=== PATIENT | male | born 1970 | race Caucasian/White ===

== ENCOUNTER 2016-07-24 14:39 | Observation (INO) | payer OTHER ==
[~2016-07-24] VITALS: Ht 170.2 cm; Wt 68.9 kg
[~2016-07-24 14:39] MED LIST: ASP81CT PO; ASP81TEC PO; ATOR20TA66 PO; ATRV10T PO; BPR100T PO; BUSP15TA60 PO; BUSPIRONE PO; CLOP75TA PO; CYAN10006 PO; METO-272 PO; METO25TA2 PO; NITR0.4T12 SL
[2016-07-24 16:00] VITALS: BP 166/89
[2016-07-24] MEDS ORDERED: ACETAMINOPHEN 500 MG TAB (TYLENOL) PO PRN (16:30)
[2016-07-24] MEDS ORDERED: LORazepam INJ 2 MG/ML (ATIVAN) VIAL IVP PRN (16:30)
[2016-07-24] MEDS ORDERED: CATHETER FLUSH 10 ML SYR IV PRN (16:45)
[2016-07-24 16:57] LABS: PROTHROMBIN TIME PATIENT 13.3 SEC (12.2-14.7)
[2016-07-24 17:06] LABS: ALANINE AMINOTRANSFERASE 21 U/L (0-55); ALBUMIN 4.2 G/DL (3.2-4.5); ANION GAP 11 MMOL/L (5-14); ASPARTATE AMINO TRANSFERASE 19 U/L (5-34); BILIRUBIN,TOTAL 1.2 MG/DL (0.1-1.0); BLOOD UREA NITROGEN 12 MG/DL (7-18); BUN/CREATININE RATIO 12; CALCIUM 9.3 MG/DL (8.5-10.1); CARBON DIOXIDE 20 MMOL/L (21-32); CHLORIDE 105 MMOL/L (98-107); CREATININE SERUM 0.99 MG/DL (0.60-1.30); GFR ESTIMATED > 60; GLUCOSE 89 MG/DL (70-105); POTASSIUM 3.6 MMOL/L (3.6-5.0); SALICYLATE < 5.0 MG/DL (5.0-20.0); SODIUM 136 MMOL/L (135-145); TOTAL PROTEIN 7.2 G/DL (6.4-8.2)
[2016-07-24 17:07] LABS: BASOPHILS % (AUTO) 0 % (0-10); EOSINOPHILS # (AUTO) 0.2 10^3/uL (0.0-0.3); EOSINOPHILS % (AUTO) 2 % (0-10); LYMPHOCYTES # (AUTO) 1.8 X 10^3 (1.0-4.0); LYMPHOCYTES % (AUTO) 19 % (12-44); MEAN CORPUSCULAR HEMOGLOBIN 31 PG (25-34); MEAN CORPUSCULAR HGB CONC 35 G/DL (32-36); MEAN CORPUSCULAR VOLUME 87 FL (80-99); MEAN PLATELET VOLUME 10.2 FL (7.4-10.4); MONOCYTES # (AUTO) 0.9 X 10^3 (0.0-1.0); MONOCYTES % (AUTO) 9 % (0-12); NEUTROPHILS # (AUTO) 6.5 X 10^3 (1.8-7.8); NEUTROPHILS % (AUTO) 69 % (42-75); PLATELET COUNT 276 10^3/uL (130-400); RED CELL DISTRIBUTION WIDTH 12.7 % (10.0-14.5); WHITE BLOOD COUNT 9.4 10^3/uL (4.3-11.0)
[2016-07-24 17:08] LABS: ACETAMINOPHEN < 10 UG/ML (10-30); ALCOHOL < 10 MG/DL (<10)
[2016-07-24] MEDS: NS IV 1000 ML 1,000 ML IV SCH (17:22)
[2016-07-24] MEDS: NICOTINE 21 MG (NICODERM) PATCH TD SCH (18:29)
[2016-07-24] MEDS ORDERED: FLU TRIvalent (5 YOA+) 2016-17 (AFLURIA) 0.5 ML IM ONE (20:00)
[2016-07-24 20:11] VITALS: BP 134/91
[2016-07-25] MEDS: NS IV 1000 ML 1,000 ML IV SCH (00:30)
[2016-07-25 00:52] VITALS: BP 138/86
[2016-07-25 04:30] VITALS: BP 135/87
[2016-07-25 08:00] VITALS: BP 127/78
[2016-07-25] MEDS: NICOTINE PATCH REMOVAL TP SCH ×2 (09:02→11:35)
[2016-07-25] MEDS: NICOTINE 21 MG (NICODERM) PATCH TD SCH (09:02)
[2016-07-25 09:20] LABS: BILIRUBIN,URINE NEGATIVE (NEGATIVE); KETONES,URINE NEGATIVE (NEGATIVE); LEUKOCYTE ESTERASE ,URINE NEGATIVE (NEGATIVE); NITRITE,URINE NEGATIVE (NEGATIVE); PH,URINE 6 (5-9); PROTEIN,URINE NEGATIVE (NEGATIVE); UROBILINOGEN,URINE 4 MG/DL (NORMAL)
--- NOTE | 2016-07-25 10:53 | Discharge Instructions ---
Discharge [facility] Discharge Medications New, Converted or Re-Newed RX: Other (No new scripts) Continued Medications: Aspirin (Aspirin 81 Mg Chew Tab) 81 Mg Chew 81 MG PO DAILY Patient Instructions Goal/Follow Up Appt: You have an appointment today with outpatient treatment at 1pm We will make sure that you have a ride to get to this appointment from the hospital Patient Instructions: - It is very important that you go to outpatient treatment for the support you need to help with your addiction. - We are working on inpatient treatment but we are limited do to bed availablities and insurance Return to The Hospital For: Chest pain Shortness of breath Activity & Diet Discharge Diet: No Restrictions Activity as Tolerated: Yes Orders-Post D/C & Referrals Pneu Vac Indicated: Yes Copy Copies To 1: EUGENIA ESTRADA MD, HOLLY R MD Jul 25, 2016 10:53
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
== END 2016-07-25 10:49 | disposition home or self-care (01) ==
LOC: UNDOADMOB 15:11 → 4TH 15:11 → UNDODISOB 07-25 11:47
PROVIDERS: ADMIT Family Medicine; ATTEND Family Medicine
DX: F11.151 Opioid abuse with opioid-induced psychotic disorder with hallucinations (principal); F17.210 Nicotine dependence, cigarettes, uncomplicated
CPT/HCPCS: 36415; 80053; 80306; 80320; 80329; 81000; 85025; 85610; 99211; G0378

== ENCOUNTER 2016-11-13 14:15 | Emergency (ER) | payer SELFPAY ==
[~2016-11-13] VITALS: Ht 175.3 cm; Wt 79.4 kg
[2016-11-13 14:52] LABS: BASOPHILS # (AUTO) 0.1 10^3/uL (0.0-0.1); BASOPHILS % (AUTO) 1 % (0-10); EOSINOPHILS # (AUTO) 0.4 10^3/uL (0.0-0.3); EOSINOPHILS % (AUTO) 4 % (0-10); LYMPHOCYTES # (AUTO) 2.2 X 10^3 (1.0-4.0); LYMPHOCYTES % (AUTO) 24 % (12-44); MEAN CORPUSCULAR HEMOGLOBIN 31 PG (25-34); MEAN CORPUSCULAR HGB CONC 34 G/DL (32-36); MEAN CORPUSCULAR VOLUME 91 FL (80-99); MEAN PLATELET VOLUME 10.5 FL (7.4-10.4); MONOCYTES # (AUTO) 0.9 X 10^3 (0.0-1.0); MONOCYTES % (AUTO) 10 % (0-12); NEUTROPHILS # (AUTO) 5.6 X 10^3 (1.8-7.8); NEUTROPHILS % (AUTO) 61 % (42-75); PLATELET COUNT 235 10^3/uL (130-400); RED BLOOD COUNT 5.04 10^6/uL (4.35-5.85); RED CELL DISTRIBUTION WIDTH 13.8 % (10.0-14.5); WHITE BLOOD COUNT 9.1 10^3/uL (4.3-11.0)
[2016-11-13 15:09] LABS: ALANINE AMINOTRANSFERASE 10 U/L (0-55); ALBUMIN 3.9 GM/DL (3.2-4.5); ANION GAP 7 MMOL/L (5-14); ASPARTATE AMINO TRANSFERASE 15 U/L (5-34); BILIRUBIN,TOTAL 0.4 MG/DL (0.1-1.0); BLOOD UREA NITROGEN 7 MG/DL (7-18); BUN/CREATININE RATIO 7 (0-20); CALCIUM 9.2 MG/DL (8.5-10.1); CARBON DIOXIDE 25 MMOL/L (21-32); CHLORIDE 107 MMOL/L (98-107); CREATININE SERUM 0.95 MG/DL (0.60-1.30); GFR ESTIMATED > 60; GLUCOSE 119 MG/DL (70-105); HEMOLYSIS 10 (-100-29); ICTERUS 0.4 (-100-1.9); LIPEMIA 5 (-100-49); POTASSIUM 3.7 MMOL/L (3.6-5.0); SODIUM 139 MMOL/L (135-145); TOTAL PROTEIN 7.2 GM/DL (6.4-8.2)
--- NOTE | 2016-11-13 15:09 | Diagnostic Imaging Report ---
INDICATION: Chest pain. EXAM: Frontal chest obtained at 2:49 hours p.m. FINDINGS: The heart and mediastinal silhouette are normal in appearance. The lungs are clear. There is no pneumothorax or pleural fluid. IMPRESSION: Negative chest. Dictated by: Dictated on workstation # [id number]
[2016-11-13 15:10] LABS: ALCOHOL < 10 MG/DL (<10)
[2016-11-13 15:14] LABS: TROPONIN I < 0.30 NG/ML (<0.30)
--- NOTE | 2016-11-13 16:27 | ED Chest Pain ---
General Chief Complaint: Cardiac/General Problems Stated Complaint: BLOOD PANEL NEEDED POSS HEART ATTACK IN LAST WEEK Nursing Triage Note: c/o intermittant chest pain x 1 month. Denies chest pain currently. Hx of heart stent x 2012. Nursing Sepsis Screen: No Definite Risk Source: patient, family Exam Limitations: no limitations History of Present Illness Time seen by provider: 16:21 Initial Comments The patient is a 46-year-old white male who was sent out from [facility] after he revealed that he had been having chest pain for a month. He has a past history of coronary artery disease. An angiogram report from 2012 showed a 60 percent blockage. He is a heavy smoker and was advised that he must quit smoking at that point in time. He continues to smoke one to one and a half packs of cigarettes per day. He reports that this pain is present at rest and if anything it improves with exercise. He also has complaints of neck pain and left arm pain. This is been present for some time and the pain goes all the way to the fingers. There is also pain in a rather constant fashion along the medial border of the left scapula. Timing/Duration: other (at least one month) Severity/Quality: moderate Location: shoulder, back Radiation: arms (perhaps left arm) Prior CP/Workup: cardiac cath Associated Symptoms: back pain Allergies and Home Medications Allergies Coded Allergies: No Known Drug Allergies (Unverified , 05/28/12) Home Medications Aspirin 81 Mg Chew, 81 MG PO DAILY, (Reported) Review of Systems Constitutional: see HPI EENTM: No Symptoms Reported Respiratory: Cough, Shortness of Air Cardiovascular: See HPI, Chest Pain Gastrointestinal: No Symptoms Reported Genitourinary: No Symptoms Reported Musculoskeletal: no symptoms reported Skin: no symptoms reported Psychiatric/Neurological: No Symptoms Reported Endocrine: No Symptoms Reported Hematologic/Lymphatic: No Symptoms Reported Past [id number]-Pwldon-Xddtzr Hx Patient Social History Alcohol Use: Occasionally Uses Recreational Drug Use: Yes (Hx & Current drug use) Smoking Status: Current Everyday Smoker Type Used: Cigarettes Recent Foreign Travel: No Contact w/Someone Who Travel: No Recent Infectious Disease Expo: No Recent Hopitalizations: Yes Immunizations Up To Date Tetanus Booster (TDap): Unknown PED Vaccines UTD: No Surgeries HX Surgeries: Yes (JAW FX REPAIR) Surgeries: Cardiac, Coronary Stent Respiratory Hx Respiratory Disorders: No Cardiovascular Hx Cardiac Disorders: Yes (STENT X 1 ) Cardiac Disorders: Coronary Artery Disease, Heart Attack, Heart Murmur, High Cholesterol, Hypertension Neurological Hx Neurological Disorders: No Reproductive System Hx Reproductive Disorders: No Sexually Transmitted Disease: No HIV/AIDS: No Genitourinary Hx Genitourinary Disorders: Yes Genitourinary Disorders: Kidney Stones Gastrointestinal Hx Gastrointestinal Disorders: Yes (HX OF BLOOD IN STOOL) Musculoskeletal Hx Musculoskeletal Disorders: Yes Musculoskeletal Disorders: Arthritis, Chronic Back Pain Endocrine Hx Endocrine Disorders: No HEENT HX ENT Disorders: No Loss of Vision: Denies Hearing Impairment: Denies Cancer Hx Cancer: No Psychosocial Hx Psychiatric Problems: Yes Behavioral Health Disorders: Anxiety, Depression Integumentary HX Skin/Integumentary Disorder: No Blood Transfusions Hx Blood Disorders: No Physical Exam Vital Signs Vital Sign - Last 12Hours 11/13/16 14:20 Temp 97.5 Pulse 70 Resp 16 B/P (MAP) 143/104 O2 Delivery Room Air Capillary Refill : Less Than 3 Seconds General Appearance: Mild Distress HEENT: Normal ENT Inspection Neck: Full Range of Motion, Normal Inspection, Non Tender Respiratory: Decreased Breath Sounds (distant) Cardiovascular: Regular Rate, Rhythm, No Edema, No Gallop, No JVD, No Murmur, Normal Peripheral Pulses Gastrointestinal: Normal Bowel Sounds, No Organomegaly, No Pulsatile Mass, Non Tender Extremity: Normal Capillary Refill, Normal Inspection, Normal Range of Motion, Non Tender, No Calf Tenderness, No Pedal Edema Neurologic/Psychiatric: Alert, Oriented x3, No Motor/Sensory Deficits, Normal Mood/Affect Other comments Tenderness to palpation along the medial border of the left scapula which he states is constant. He also reports numbness and tingling in his left arm all the way to the fingertips Progress/Results/Core Measures Results/Orders Lab Results Laboratory Tests Test 11/13/16 14:35 Range/Units White Blood Count 9.1 4.3-11.0 10^3/uL Red Blood Count 5.04 4.35-5.85 10^6/uL Hemoglobin 15.6 13.3-17.7 G/DL Hematocrit 46 40-54 % Mean Corpuscular Volume 91 80-99 FL Mean Corpuscular Hemoglobin 31 25-34 PG Mean Corpuscular Hemoglobin Concent 34 32-36 G/DL Red Cell Distribution Width 13.8 10.0-14.5 % Platelet Count 235 130-400 10^3/uL Mean Platelet Volume 10.5 H 7.4-10.4 FL Neutrophils (%) (Auto) 61 42-75 % Lymphocytes (%) (Auto) 24 12-44 % Monocytes (%) (Auto) 10 0-12 % Eosinophils (%) (Auto) 4 0-10 % Basophils (%) (Auto) 1 0-10 % Neutrophils # (Auto) 5.6 1.8-7.8 X 10^3 Lymphocytes # (Auto) 2.2 1.0-4.0 X 10^3 Monocytes # (Auto) 0.9 0.0-1.0 X 10^3 Eosinophils # (Auto) 0.4 H 0.0-0.3 10^3/uL Basophils # (Auto) 0.1 0.0-0.1 10^3/uL Sodium Level 139 135-145 MMOL/L Potassium Level 3.7 3.6-5.0 MMOL/L Chloride Level 107 98-107 MMOL/L Carbon Dioxide Level 25 21-32 MMOL/L Anion Gap 7 5-14 MMOL/L Blood Urea Nitrogen 7 7-18 MG/DL Creatinine 0.95 0.60-1.30 MG/DL Estimat Glomerular Filtration Rate > 60 BUN/Creatinine Ratio 7 0-20 Glucose Level 119 H 70-105 MG/DL Calcium Level 9.2 8.5-10.1 MG/DL Total Bilirubin 0.4 0.1-1.0 MG/DL Aspartate Amino Transf (AST/SGOT) 15 5-34 U/L Alanine Aminotransferase (ALT/SGPT) 10 0-55 U/L Alkaline Phosphatase 129 40-136 U/L Troponin I < 0.30 <0.30 NG/ML Total Protein 7.2 6.4-8.2 GM/DL Albumin 3.9 3.2-4.5 GM/DL Serum Alcohol < 10 <10 MG/DL My Orders Orders - GERONIMO GIFFORD MD Cbc With Automated Diff (11/13/16 14:24) Comprehensive Metabolic Panel (11/13/16 14:24) Troponin I (11/13/16 14:24) Chest 1 View, Ap/Pa Only (11/13/16 14:24) Ekg Tracing (11/13/16 14:24) Alcohol (11/13/16 14:28) Drug Screen Stat (Urine) (11/13/16 14:28) Vital Signs/I&O Vital Sign - Last 12Hours 11/13/16 14:20 Temp 97.5 Pulse 70 Resp 16 B/P (MAP) 143/104 O2 Delivery Room Air Blood Pressure Mean: 117 Departure Impression Impression: Primary Impression: chest pain Additional Impression: left sided neuropathy/cervical disc disease Disposition: HOME, SELF-CARE Condition: Stable/Unchanged Departure-Patient Inst. Decision time for Depature: 16:30 Referrals: EUGENIA ESTRADA MD (PCP) Primary Care Physician [facility] (Family) Primary Care Physician Patient Instructions: Chest Pain (DC) Add. Discharge Instructions: All discharge instructions reviewed with patient and/or family. Voiced understanding. Stop smoking Make arrangements with Dr. Estrada for stress test and evaluation of your cervical vertebrae/discs GERONIMO GIFFORD MD Nov 13, 2016 16:27
[2016-11-13 16:45] VITALS: BP 138/90
--- OUTSIDE RECORDS SUMMARY | 2016-11-17 14:17 | XMS REPORT ---
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
--- OUTSIDE RECORDS SUMMARY | 2016-11-17 14:18 | XMS REPORT | Continuity of Care Document ---
Author Author [facility] Address Unknown Phone Unavailable Allergies Active Description Code Type Severity Reaction Onset Reported/Identified Relationship to Patient Clinical Status Yes No Known Drug Allergies [id number] Drug Allergy Unknown N/ A 05/28/2012 Yes Zoloft 100 mg tablet Drug Allergy N/A N/A 09/07/2013 Yes Wellbutrin 100 mg tablet Drug Allergy N/A N/A 12/29/2013 Medications Problems Date Dx Coded Attending Type Code Diagnosis Diagnosed By 05/29/2012 Ot 305.00 ALCOHOL ABUSE-UNSPEC 05/29/2012 Ot 305.1 TOBACCO USE DISORDER 05/29/2012 Ot 305.90 DRUG ABUSE NEC-UNSPEC 05/29/2012 Ot 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 05/29/2012 Ot 786.50 CHEST PAIN NOS 05/29/2012 Ot V17.49 FAMILY HISTORY OF OTHER CARDIOVASCULAR D 06/16/2012 FARZANEH YEAGER DO 300.00 ANXIETY UNSPEC 06/16/2012 FARZANEH YEAGER DO 780.99 ANHEDONIA 06/16/2012 NATTY SMITH APRN 300.00 ANXIETY UNSPEC 06/16/2012 NATTY SMITH APRN 780.99 ANHEDONIA 06/16/2012 300.00 ANXIETY UNSPEC 06/16/2012 780.99 ANHEDONIA 06/16/2012 FARZANEH YEAGER DO 300.00 ANXIETY UNSPEC 06/16/2012 FARZANEH YEAGER DO 780.99 ANHEDONIA 06/16/2012 SOPHIA RANDALL APRN 300.00 ANXIETY UNSPEC 06/16/2012 SOPHIA RANDALL APRN 780.99 ANHEDONIA 06/16/2012 EUGENIA ESTARDA MD 300.00 ANXIETY UNSPEC 06/16/2012 EUGENIA ESTRADA MD 780.99 ANHEDONIA 06/16/2012 EUGENAI ESTRADA MD 300.00 ANXIETY UNSPEC 06/16/2012 EUGENIA ESTRADA MD 780.99 ANHEDONIA 06/16/2012 EUGENIA ESTRADA MD 300.00 ANXIETY UNSPEC 06/16/2012 EUGENIA ESTRADA MD 780.99 ANHEDONIA 06/16/2012 TOM BROWN DDS 300.00 ANXIETY UNSPEC 06/16/2012 TOM BROWN DDS 780.99 ANHEDONIA 08/31/2012 NATTY SMITH APRN 719.41 PAIN IN JOINT INVOLVING SHOULDER REGION 08/31/2012 719.41 PAIN IN JOINT INVOLVING SHOULDER REGION 08/31/2012 FARZANEH YEAGER DO 719.41 PAIN IN JOINT INVOLVING SHOULDER REGION 08/31/2012 SOPHIA RANDALL APRN 719.41 PAIN IN JOINT INVOLVING SHOULDER REGION 08/31/2012 EUGENIA ESTRADA MD 719.41 PAIN IN JOINT INVOLVING SHOULDER REGION 08/31/2012 EUGENIA ESTRADA MD 719.41 PAIN IN JOINT INVOLVING SHOULDER REGION 08/31/2012 EUGENIA ESTRADA MD 719.41 PAIN IN JOINT INVOLVING SHOULDER REGION 08/31/2012 TOM BROWN DDS 719.41 PAIN IN JOINT INVOLVING SHOULDER REGION 12/28/2012 FARZANEH YEAGER DO K 786.50 CHEST PAIN 12/28/2012 SOPHIA RANDALL APRN S 786.50 CHEST PAIN 12/28/2012 EUGENIA ESTRADA MD 786.50 CHEST PAIN 12/28/2012 EUGENIA ESTRADA MD 786.50 CHEST PAIN 12/28/2012 EUGENIA ESTRADA MD 786.50 CHEST PAIN 12/28/2012 TOM BROWN DDS 786.50 CHEST PAIN 02/22/2013 ANISA DANIEL MD, FACC FACP CCDS Ot 272.4 HYPERLIPIDEMIA NEC/NOS 02/22/2013 ANISA DANIEL MD, FACC FACP CCDS Ot 305.00 ALCOHOL ABUSE-UNSPEC 02/22/2013 ANISA DANIEL MD, FACC FACP CCDS Ot 305.1 TOBACCO USE DISORDER 02/22/2013 ANISA DANIEL MD, FACC FACP CCDS Ot 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 02/22/2013 ANISA DANIEL MD, FACC FACP CCDS Ot 414.4 CORONARY ATHEROSCLEROSIS DUE TO CALCIFIE 02/22/2013 ANISA DANIEL MD, FACC FACP CCDS Ot 786.59 CHEST PAIN NEC 02/22/2013 ANISA DANIEL MD, FACC FACP CCDS Ot V15.81 HX OF PAST NONCOMPLIANCE 02/22/2013 MARÍA OLEA [facility], ANISA FACP CCDS Ot V45.82 PERCUTANEOUS TRANSLUM CORON ANGIOPLASTY 02/22/2013 MARÍA OLEA [facility], ANISA FACP CCDS Ot V58.63 LONG-TERM(CURRENT)USE OF ANTIPLATELET/AN 02/22/2013 MARÍA OLEA [facility], [facility] Ot V58.69 OTH MED,LT,CURRENT USE 03/18/2013 YEAGER DO FARZANEH K 272.4 HYPERLIPIDEMIA 03/18/2013 YEAGER DO FARZANEH K 401.1 HYPERTENSION, BENIGN ESSENTIAL 03/18/2013 YEAGER DO, FARZANEH K 414.00 CORONARY ATHEROSCLEROSIS OF UNSPECIFIED TYPE OF VESSEL LITTLE TRAVERSE OR GRAFT 03/18/2013 SOPHIA RANDALL APRN S 272.4 HYPERLIPIDEMIA 03/18/2013 SOPHIA RANDALL APRN S 401.1 HYPERTENSION, BENIGN ESSENTIAL 03/18/2013 SOPHIA RANDALL APRN S 414.00 CORONARY ATHEROSCLEROSIS OF UNSPECIFIED TYPE OF VESSEL LITTLE TRAVERSE OR GRAFT 03/18/2013 EUGENIA ESTRADA MD N 272.4 HYPERLIPIDEMIA 03/18/2013 EUGENIA ESTRADA MD N 401.1 HYPERTENSION, BENIGN ESSENTIAL 03/18/2013 EUGENIA ESTRADA MD N 414.00 CORONARY ATHEROSCLEROSIS OF UNSPECIFIED TYPE OF VESSEL LITTLE TRAVERSE OR GRAFT 03/18/2013 EUGENIA ESTRADA MD N 272.4 HYPERLIPIDEMIA 03/18/2013 EUGENIA ESTRADA MD N 401.1 HYPERTENSION, BENIGN ESSENTIAL 03/18/2013 EUGENIA ESTRADA MD N 414.00 CORONARY ATHEROSCLEROSIS OF UNSPECIFIED TYPE OF VESSEL LITTLE TRAVERSE OR GRAFT 03/18/2013 EUGENIA ESTRADA MD N 272.4 HYPERLIPIDEMIA 03/18/2013 EUGENIA ESTRADA MD N 401.1 HYPERTENSION, BENIGN ESSENTIAL 03/18/2013 EUGENIA ESTRADA MD N 414.00 CORONARY ATHEROSCLEROSIS OF UNSPECIFIED TYPE OF VESSEL LITTLE TRAVERSE OR GRAFT 03/18/2013 WHITE DDS, TOM J 272.4 HYPERLIPIDEMIA 03/18/2013 WHITE DDS, TOM J 401.1 HYPERTENSION, BENIGN ESSENTIAL 03/18/2013 WHITE DDS, TOM J 414.00 CORONARY ATHEROSCLEROSIS OF UNSPECIFIED TYPE OF VESSEL LITTLE TRAVERSE OR GRAFT 05/05/2013 SOPHIA RANDALL APRN S 525.9 UNSPECIFIED DISORDER OF THE TEETH AND SUPPORTING STRUCTURES 05/05/2013 EUGENIA ESTRADA MD N 525.9 UNSPECIFIED DISORDER OF THE TEETH AND SUPPORTING STRUCTURES 05/05/2013 EUGENIA ESTRADA MD N 525.9 UNSPECIFIED DISORDER OF THE TEETH AND SUPPORTING STRUCTURES 05/05/2013 EUGENIA ESTRADA MD N 525.9 UNSPECIFIED DISORDER OF THE TEETH AND SUPPORTING STRUCTURES 05/05/2013 WHITE DDS, TOM J 525.9 UNSPECIFIED DISORDER OF THE TEETH AND SUPPORTING STRUCTURES 07/13/2013 EUGENIA ESTRADA MD N 303.90 OTHER AND UNSPECIFIED ALCOHOL DEPENDENCE UNSPECIFIED DRINKING BEHAVIOR 07/13/2013 EUGENIA ESTRADA MD N 578.1 BLOOD IN STOOL 07/13/2013 EUGENIA ESTRADA MD N 786.30 HEMOPTYSIS UNSPECIFIED 07/13/2013 EUGENIA ESTRADA MD N 303.90 OTHER AND UNSPECIFIED ALCOHOL DEPENDENCE UNSPECIFIED DRINKING BEHAVIOR 07/13/2013 EUGENIA ESTRADA MD N 578.1 BLOOD IN STOOL 07/13/2013 EUGENIA ESTRADA MD N 786.30 HEMOPTYSIS UNSPECIFIED 07/13/2013 EUGENIA ESTRADA MD N 303.90 OTHER AND UNSPECIFIED ALCOHOL DEPENDENCE UNSPECIFIED DRINKING BEHAVIOR 07/13/2013 EUGENIA ESTRADA MD N 578.1 BLOOD IN STOOL 07/13/2013 EUGENIA ESTRADA MD N 786.30 HEMOPTYSIS UNSPECIFIED 07/13/2013 TOM BROWN DDS J 303.90 OTHER AND UNSPECIFIED ALCOHOL DEPENDENCE UNSPECIFIED DRINKING BEHAVIOR 07/13/2013 TOM BROWN DDS J 578.1 BLOOD IN STOOL 07/13/2013 STEPHANIE YANGSTOM J 786.30 HEMOPTYSIS UNSPECIFIED 09/18/2013 SANDY GLORIA DO Ot 305.00 ALCOHOL ABUSE-UNSPEC 09/18/2013 SANDY GLORIA DO Ot 305.90 DRUG ABUSE NEC-UNSPEC 09/18/2013 SANDY GLORIA DO Ot 780.97 ALTERED MENTAL STATUS 12/29/2013 EUGENIA ESTRADA MD N 356.9 UNSPECIFIED IDIOPATHIC PERIPHERAL NEUROPATHY 12/29/2013 WHITE DDSTOM J 356.9 UNSPECIFIED IDIOPATHIC PERIPHERAL NEUROPATHY 06/14/2014 WHITE DDSTOM J 786.50 CHEST PAIN 06/16/2014 Ot 414.00 06/16/2014 BAIMA, SAMEERA L BILINGUAL RESEARCH INTERVIEWER Ot 272.4 06/16/2014 BAIMA, SAMEERA L BILINGUAL RESEARCH INTERVIEWER Ot 401.9 06/16/2014 BAIMA, SAMEERA L BILINGUAL RESEARCH INTERVIEWER Ot 414.00 06/16/2014 BAIMA, SAMEERA L BILINGUAL RESEARCH INTERVIEWER Ot V58.69 06/22/2014 WHITE DDS, TOM J V01.6 EXPOSURE TO VENEREAL DISEASES 11/15/2014 EUGENIA ESTRADA MD Ot 008.8 VIRAL ENTERITIS NOS 11/15/2014 EUGENIA ESTRADA MD Ot 272.0 PURE HYPERCHOLESTEROLEM 11/15/2014 EUGENIA ESTRADA MD Ot 305.20 CANNABIS ABUSE-UNSPEC 11/15/2014 EUGENIA ESTRADA MD Ot 401.9 HYPERTENSION NOS 11/15/2014 EUGENIA ESTRADA MD Ot 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 11/15/2014 EUGENIA ESTRADA MD Ot V11.3 HX OF ALCOHOLISM 11/15/2014 EUGENIA ESTRADA MD Ot V13.01 PERSONAL HISTORY OF URINARY CALCULI 11/15/2014 EUGENIA ESTRADA MD Ot V45.82 PERCUTANEOUS TRANSLUM CORON ANGIOPLASTY 11/15/2014 Ot 414.00 11/15/2014 BAIMA, SAMEERA L BILINGUAL RESEARCH INTERVIEWER Ot 272.4 11/15/2014 BAIMA, SAMEERA L BILINGUAL RESEARCH INTERVIEWER Ot 401.9 11/15/2014 BAIMA, SAMEERA L BILINGUAL RESEARCH INTERVIEWER Ot 414.00 11/15/2014 BAIMA, SAMEERA L BILINGUAL RESEARCH INTERVIEWER Ot V58.69 11/15/2014 BAIMA, SAMEERA L BILINGUAL RESEARCH INTERVIEWER Ot 272.4 11/15/2014 BAIMA, SAMEERA L BILINGUAL RESEARCH INTERVIEWER Ot 414.00 11/15/2014 BAIMA, SAMEERA L BILINGUAL RESEARCH INTERVIEWER Ot 786.50 07/24/2016 Ot 414.00 CORON ATHEROSCLER NOS TYPE VESSEL, NATIV 07/24/2016 BAIMA, SAMEERA L BILINGUAL RESEARCH INTERVIEWER Ot 272.4 HYPERLIPIDEMIA NEC/NOS 07/24/2016 BAIMA, SAMEERA L BILINGUAL RESEARCH INTERVIEWER Ot 401.9 HYPERTENSION NOS 07/24/2016 BAIMA, SAMEERA L BILINGUAL RESEARCH INTERVIEWER Ot 414.00 CORON ATHEROSCLER NOS TYPE VESSEL, NATIV 07/24/2016 BAIMA, SAMEERA L BILINGUAL RESEARCH INTERVIEWER Ot V58.69 OT MED,LT,CURRENT USE 07/24/2016 BAIMA, SAMEERA L BILINGUAL RESEARCH INTERVIEWER Ot 272.4 HYPERLIPIDEMIA NEC/NOS 07/24/2016 BAIMA, SAMEERA L BILINGUAL RESEARCH INTERVIEWER Ot 414.00 CORON ATHEROSCLER NOS TYPE VESSEL, NATIV 07/24/2016 BAIMA, SAMEERA L BILINGUAL RESEARCH INTERVIEWER Ot 786.50 CHEST PAIN NOS 07/25/2016 RAUL CARDOZA MD Ot F11.151 OPIOID ABUSE W OPIOID-INDUCED PSYCHOTIC 07/25/2016 RAUL CARDOZA MD Ot F17.210 NICOTINE DEPENDENCE, CIGARETTES, UNCOMPL 08/18/2016 Ot 414.00 CORON ATHEROSCLER NOS TYPE VESSEL, NATIV 08/18/2016 BAIMA, SAMEERA L BILINGUAL RESEARCH INTERVIEWER Ot 272.4 HYPERLIPIDEMIA NEC/NOS 08/18/2016 BAIMA, SAMEERA L BILINGUAL RESEARCH INTERVIEWER Ot 401.9 HYPERTENSION NOS 08/18/2016 BAIMA, SAMEERA L BILINGUAL RESEARCH INTERVIEWER Ot 414.00 CORON ATHEROSCLER NOS TYPE VESSEL, NATIV 08/18/2016 BAIMA, SAMEERA L BILINGUAL RESEARCH INTERVIEWER Ot V58.69 OTH MED,LT,CURRENT USE 08/18/2016 BAIMA, SAMEERA L BILINGUAL RESEARCH INTERVIEWER Ot 272.4 HYPERLIPIDEMIA NEC/NOS 08/18/2016 BAIMA, SAMEERA L BILINGUAL RESEARCH INTERVIEWER Ot 414.00 CORON ATHEROSCLER NOS TYPE VESSEL, NATIV 08/18/2016 BAIMA, SAMEERA L BILINGUAL RESEARCH INTERVIEWER Ot 786.50 CHEST PAIN NOS 10/14/2016 Ot 414.00 CORON ATHEROSCLER NOS TYPE VESSEL, NATIV 10/14/2016 BAIMA, SAMEERA L BILINGUAL RESEARCH INTERVIEWER Ot 272.4 HYPERLIPIDEMIA NEC/NOS 10/14/2016 BAIMA, SAMEERA L BILINGUAL RESEARCH INTERVIEWER Ot 401.9 HYPERTENSION NOS 10/14/2016 BAIMA, SAMEERA L BILINGUAL RESEARCH INTERVIEWER Ot 414.00 CORON ATHEROSCLER NOS TYPE VESSEL, NATIV 10/14/2016 BAIMA, SAMEERA L BILINGUAL RESEARCH INTERVIEWER Ot V58.69 OTH MED,LT,CURRENT USE 10/14/2016 BAIMA, SAMEERA L BILINGUAL RESEARCH INTERVIEWER Ot 272.4 HYPERLIPIDEMIA NEC/NOS 10/14/2016 BAIMA, SAMEERA L BILINGUAL RESEARCH INTERVIEWER Ot 414.00 CORON ATHEROSCLER NOS TYPE VESSEL, NATIV 10/14/2016 BAIMA, SAMEERA L BILINGUAL RESEARCH INTERVIEWER Ot 786.50 CHEST PAIN NOS 10/21/2016 Ot 414.00 CORON ATHEROSCLER NOS TYPE VESSEL, NATIV 10/21/2016 BAIMA, SAMEERA L BILINGUAL RESEARCH INTERVIEWER Ot 272.4 HYPERLIPIDEMIA NEC/NOS 10/21/2016 BAIMA, SAMEERA L BILINGUAL RESEARCH INTERVIEWER Ot 401.9 HYPERTENSION NOS 10/21/2016 BAIMA, SAMEERA L BILINGUAL RESEARCH INTERVIEWER Ot 414.00 CORON ATHEROSCLER NOS TYPE VESSEL, NATIV 10/21/2016 BAIMA, SAMEERA L BILINGUAL RESEARCH INTERVIEWER Ot V58.69 OTH MED,LT,CURRENT USE 10/21/2016 BAIMA, SAMEERA L BILINGUAL RESEARCH INTERVIEWER Ot 272.4 HYPERLIPIDEMIA NEC/NOS 10/21/2016 BAIMA, SAMEERA L BILINGUAL RESEARCH INTERVIEWER Ot 414.00 CORON ATHEROSCLER NOS TYPE VESSEL, NATIV 10/21/2016 BAIMA, SAMEERA L BILINGUAL RESEARCH INTERVIEWER Ot 786.50 CHEST PAIN NOS 11/13/2016 Ot 414.00 CORON ATHEROSCLER NOS TYPE VESSEL, NATIV 11/13/2016 BAIMA, SAMEERA L BILINGUAL RESEARCH INTERVIEWER Ot 272.4 HYPERLIPIDEMIA NEC/NOS 11/13/2016 BAIMA, SAMEERA L BILINGUAL RESEARCH INTERVIEWER Ot 401.9 HYPERTENSION NOS 11/13/2016 BAIMA, SAMEERA L BILINGUAL RESEARCH INTERVIEWER Ot 414.00 CORON ATHEROSCLER NOS TYPE VESSEL, NATIV 11/13/2016 BAIMA, SAMEERA L BILINGUAL RESEARCH INTERVIEWER Ot V58.69 OTH MED,LT,CURRENT USE 11/13/2016 BAIMA, SAMEERA L BILINGUAL RESEARCH INTERVIEWER Ot 272.4 HYPERLIPIDEMIA NEC/NOS 11/13/2016 BAIMA, SAMEERA L BILINGUAL RESEARCH INTERVIEWER Ot 414.00 CORON ATHEROSCLER NOS TYPE VESSEL, NATIV 11/13/2016 BAIMA, SAMEERA L BILINGUAL RESEARCH INTERVIEWER Ot 786.50 CHEST PAIN NOS Procedures Code Description Performed By Performed On Cardiolog Luis Jackson 07/29/2012 88307 THERAPUTIC INJ SQ/IM 05/05/2013 J0696 ROCEPHIN INJ 1 g 05/05/2013 81261 THERAPUTIC INJ SQ/IM 05/07/2013 J0696 ROCEPHIN INJ 1 g 05/07/2013 GENERAL S DUSTIN ALVARADO 07/13/2013 34905 XRAY CERVICAL SPINE, 2 OR 3 VIEWS 12/29/2013 12869 XRAY LUMBAR SPINE 2 OR 3 VIEWS 12/29/2013 87728 CMP 12/29/2013 37888 VIT B 12 2013 68568 FOLATE 2013 80965 NUCLEAR STRESS TESTING 06/30/2014 86663 OXIMETRY 2014 Results Test Result Range PT panel in platelet poor plasma by coagulation assay - 07/24/16 16:36 Prothrombin time (PT) in platelet poor plasma by coagulation assay 13.3 s 12.2-14.7 INR in platelet poor plasma or blood by coagulation assay 1.0 0.8-1.4 Comprehensive metabolic panel - 07/24/16 16:36 Serum or plasma sodium measurement (moles/volume) 136 mmol/ L 135-145 Serum or plasma potassium measurement (moles/volume) 3.6 mmol/L 3.6-5.0 Serum or plasma chloride measurement (moles/volume) 105 mmol /L 98-107 Carbon dioxide 20 mmol/L 21-32 Serum or plasma anion gap determination (moles/volume) 11 mmol/L 5-14 Serum or plasma urea nitrogen measurement (mass/volume) 12 mg/dL 7-18 Serum or plasma creatinine measurement (mass/volume) 0.99 mg /dL 0.60-1.30 Serum or plasma urea nitrogen/creatinine mass ratio 12 NRG Serum or plasma creatinine measurement with calculation of estimated glomerular filtration rate > NRG Serum or plasma glucose measurement (mass/volume) 89 mg/dL 70-105 Serum or plasma calcium measurement (mass/volume) 9.3 mg/dL 8.5-10.1 Serum or plasma total bilirubin measurement (mass/volume) 1.2 mg/dL 0.1-1.0 Serum or plasma alkaline phosphatase measurement (enzymatic activity/volume) 117 U/L 40-136 Serum or plasma aspartate aminotransferase measurement (enzymatic activity/ volume) 19 U/L 5-34 Serum or plasma alanine aminotransferase measurement (enzymatic activity/volume ) 21 U/L 0-55 Serum or plasma protein measurement (mass/volume) 7.2 g/dL 6.4-8.2 Serum or plasma albumin measurement (mass/volume) 4.2 g/dL 3.2-4.5 Serum or plasma salicylates measurement (mass/volume) - 07/24/16 16:36 Serum or plasma salicylates measurement (mass/volume) < mg/ dL 5.0-20.0 Serum or plasma acetaminophen measurement (mass/volume) - 07/24/16 16:36 Serum or plasma acetaminophen measurement (mass/volume) < ug /mL 10-30 Serum or plasma ethanol measurement (mass/volume) - 07/24/16 16:36 Serum or plasma ethanol measurement (mass/volume) < mg/dL <10 Complete blood count (CBC) with automated white blood cell (WBC) differential - 07/24/16 16:36 Blood leukocytes automated count (number/volume) 9.4 10*3/ uL 4.3-11.0 Blood erythrocytes automated count (number/volume) 4.90 10*6 /uL 4.35-5.85 Venous blood hemoglobin measurement (mass/volume) 15.1 g/dL 13.3-17.7 Blood hematocrit (volume fraction) 43 % 40-54 Automated erythrocyte mean corpuscular volume 87 [foz_us] 80-99 Automated erythrocyte mean corpuscular hemoglobin (mass per erythrocyte) 31 pg 25-34 Automated erythrocyte mean corpuscular hemoglobin concentration measurement ( mass/volume) 35 g/dL 32-36 Automated erythrocyte distribution width ratio 12.7 % 10.0-14.5 Automated blood platelet count (count/volume) 276 10*3/uL 130-400 Automated blood platelet mean volume measurement 10.2 [foz_ us] 7.4-10.4 Automated blood neutrophils/100 leukocytes 69 % 42-75 Automated blood lymphocytes/100 leukocytes 19 % 12-44 Blood monocytes/100 leukocytes 9 % 0-12 Automated blood eosinophils/100 leukocytes 2 % 0-10 Automated blood basophils/100 leukocytes 0 % 0-10 Blood neutrophils automated count (number/volume) 6.5 10*3 1.8-7.8 Blood lymphocytes automated count (number/volume) 1.8 10*3 1.0-4.0 Blood monocytes automated count (number/volume) 0.9 10*3 0.0-1.0 Automated eosinophil count 0.2 10*3/uL 0.0-0.3 Automated blood basophil count (count/volume) 0.0 10*3/uL 0.0-0.1 Complete urinalysis with reflex to culture - 07/25/16 09:07 Urine color determination YELLOW NRG Urine clarity determination CLEAR NRG Urine pH measurement by test strip 6 5- 9 Specific gravity of urine by test strip 1.020 1.016-1.022 Urine protein assay by test strip, semi-quantitative NEGATIVE NEGATIVE Urine glucose detection by automated test strip NEGATIVE NEGATIVE Erythrocytes detection in urine sediment by light microscopy NEGATIVE NEGATIVE Urine ketones detection by automated test strip NEGATIVE NEGATIVE Urine nitrite detection by test strip NEGATIVE NEGATIVE Urine total bilirubin detection by test strip NEGATIVE NEGATIVE Urine urobilinogen measurement by automated test strip (mass/volume) 4 mg/dL NORMAL Urine leukocyte esterase detection by dipstick NEGATIVE NEGATIVE Automated urine sediment erythrocyte count by microscopy (number/high power field) NONE NRG Automated urine sediment leukocyte count by microscopy (number/high power field ) NONE NRG Bacteria detection in urine sediment by light microscopy NEGATIVE NRG Crystals detection in urine sediment by light microscopy NONE NRG Casts detection in urine sediment by light microscopy NONE NRG Mucus detection in urine sediment by light microscopy SMALL NRG Complete urinalysis with reflex to culture NO NRG Urine drug screening test - 07/25/16 09:07 Urine phencyclidine detection by screening method NEGATIVE NEGATIVE Urine benzodiazepines detection by screening method POSITIVE NEGATIVE Urine cocaine detection NEGATIVE NEGATIVE Urine amphetamines detection by screening method POSITIVE NEGATIVE Urine methamphetamine detection by screening method NEGATIVE NEGATIVE Urine cannabinoids detection by screening method POSITIVE NEGATIVE Urine opiates detection by screening method NEGATIVE NEGATIVE Urine barbiturates detection NEGATIVE NEGATIVE Screening urine tricyclic antidepressants detection NEGATIVE NEGATIVE Urine methadone detection by screening method NEGATIVE NEGATIVE Urine oxycodone detection NEGATIVE NEGATIVE Urine propoxyphene detection NEGATIVE NEGATIVE Complete blood count (CBC) with automated white blood cell (WBC) differential - 11/13/16 14:35 Blood leukocytes automated count (number/volume) 9.1 10*3/ uL 4.3-11.0 Blood erythrocytes automated count (number/volume) 5.04 10*6 /uL 4.35-5.85 Venous blood hemoglobin measurement (mass/volume) 15.6 g/dL 13.3-17.7 Blood hematocrit (volume fraction) 46 % 40-54 Automated erythrocyte mean corpuscular volume 91 [foz_us] 80-99 Automated erythrocyte mean corpuscular hemoglobin (mass per erythrocyte) 31 pg 25-34 Automated erythrocyte mean corpuscular hemoglobin concentration measurement ( mass/volume) 34 g/dL 32-36 Automated erythrocyte distribution width ratio 13.8 % 10.0-14.5 Automated blood platelet count (count/volume) 235 10*3/uL 130-400 Automated blood platelet mean volume measurement 10.5 [foz_ us] 7.4-10.4 Automated blood neutrophils/100 leukocytes 61 % 42-75 Automated blood lymphocytes/100 leukocytes 24 % 12-44 Blood monocytes/100 leukocytes 10 % 0-12 Automated blood eosinophils/100 leukocytes 4 % 0-10 Automated blood basophils/100 leukocytes 1 % 0-10 Blood neutrophils automated count (number/volume) 5.6 10*3 1.8-7.8 Blood lymphocytes automated count (number/volume) 2.2 10*3 1.0-4.0 Blood monocytes automated count (number/volume) 0.9 10*3 0.0-1.0 Automated eosinophil count 0.4 10*3/uL 0.0-0.3 Automated blood basophil count (count/volume) 0.1 10*3/uL 0.0-0.1 Comprehensive metabolic panel - 11/13/16 14:35 Serum or plasma sodium measurement (moles/volume) 139 mmol/ L 135-145 Serum or plasma potassium measurement (moles/volume) 3.7 mmol/L 3.6-5.0 Serum or plasma chloride measurement (moles/volume) 107 mmol /L 98-107 Carbon dioxide 25 mmol/L 21-32 Serum or plasma anion gap determination (moles/volume) 7 mmol/L 5-14 Serum or plasma urea nitrogen measurement (mass/volume) 7 mg /dL 7-18 Serum or plasma creatinine measurement (mass/volume) 0.95 mg /dL 0.60-1.30 Serum or plasma urea nitrogen/creatinine mass ratio 7 0-20 Serum or plasma creatinine measurement with calculation of estimated glomerular filtration rate > NRG Serum or plasma glucose measurement (mass/volume) 119 mg/dL 70-105 Serum or plasma calcium measurement (mass/volume) 9.2 mg/dL 8.5-10.1 Serum or plasma total bilirubin measurement (mass/volume) 0.4 mg/dL 0.1-1.0 Serum or plasma alkaline phosphatase measurement (enzymatic activity/volume) 129 U/L 40-136 Serum or plasma aspartate aminotransferase measurement (enzymatic activity/ volume) 15 U/L 5-34 Serum or plasma alanine aminotransferase measurement (enzymatic activity/volume ) 10 U/L 0-55 Serum or plasma protein measurement (mass/volume) 7.2 g/dL 6.4-8.2 Serum or plasma albumin measurement (mass/volume) 3.9 g/dL 3.2-4.5 Serum or plasma troponin i.cardiac measurement (mass/volume) - 11/13/16 14:35 Serum or plasma troponin i.cardiac measurement (mass/volume) < ng/mL <0.30 Serum or plasma ethanol measurement (mass/volume) - 11/13/16 14:35 Serum or plasma ethanol measurement (mass/volume) < mg/dL <10 Encounters ACCT No. Visit Date/Time Discharge Status Pt. Type Provider Facility Loc./Unit Complaint [id number] 06/30/2014 08:03:00 06/30/2014 23: 59:59 CLS Outpatient STEPHANIE TOM PERRY Johan [id number] 12/29/2013 14:12:00 12/29/2013 23: 59:59 CLS Outpatient EUGENIA ESTRADA MD [id number] 09/07/2013 09:45:00 09/07/2013 23: 59:59 CLS Outpatient EUGENIA ESTRADA MD [id number] 07/13/2013 10:08:00 07/13/2013 23: 59:59 CLS Outpatient EUGENIA ESTRADA MD [id number] 05/07/2013 10:56:00 05/07/2013 23: 59:59 CLS Outpatient SOPHIA RANDALL APRN [id number] 03/18/2013 14:47:00 03/18/2013 23: 59:59 CLS Outpatient FARZANEH YEAGER DO [id number] 08/31/2012 10:56:00 08/31/2012 23: 59:59 CLS Outpatient NATTY SMITH APRN [id number] 06/16/2012 08:47:00 06/16/2012 23: 59:59 CLS Outpatient FARZANEH YEAGER DO [id number] 10/29/2012 11:04:00 Document Registration
--- OUTSIDE RECORDS SUMMARY | 2016-11-17 14:18 | XMS REPORT ---
Author ESTIVEN Colindres [employer] Address Unknown Phone Unavailable Care Team Providers Care Belt Sander Name Role Phone ESTIVEN NEELY CP Unavailable Allergies, Adverse Reactions, Alerts Substance Reaction Event Type N.K.D.A. 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 Active Problem Hyperlipidemia E78.5 Active Medications Medication Code System Code Instructions Start Date End Date Status Dosage BusPIRone HCl [facility] [address]-51 30 MG Orally 2 times a day 1 tablet Chantix Starting Month Indra [facility] [address]-00 0.5 MG X 11 & 1 MG X 42 Orally Jun 29, 2015 as directed Aspirin [facility] 40874-55775 81 mg Jun 16, 2012 take 1 tablet (81 mg) by oral route once daily Metoprolol Succinate ER [facility] [address]-87 50 mg Orally Once a day August 1 tablet clopidogrel [facility] 0 75 mg Jun 16, 2012 take 1 tablet (75 mg) by oral route once daily Nitroglycerin [facility] [address]-28 0.4 mg Jun 14, 2014 place 1 tablet (0.4 mg) by sublingual route at the 1st sign of attack; may repeat every 5 min until relief; if pain persists after 3 tablets in 15 min, prompt medical attention is recommended Metoprolol Succinate ER [facility] 21471685049 50 MG TAKE ONE TABLET BY MOUTH DAILY Amoxicillin [facility] [address]-25 500 MG Orally 4 times daily Mar 03, 2016 1 capsule BusPIRone HCl [facility] [address]-68 15 MG Orally twice a day September 19, 2015 2 tablets Vitamin B-12 [facility] 87249747152 1,000 TAKE 1 TABLET BY MOUTH DAILY Atorvastatin Calcium [facility] [address]-50 20 mg Orally Once a day September 19, 2015 1 tablet Procedures Procedure Coding System Code Date PANORAMIC FILM SEE ALSO CODE 34985 CPT-4 D0330 Feb 11, 2016 LTD ORAL EVALUATION - PROBLEM FOCUS CPT-4 D0140 Feb 11, 2016 Vital Signs Date/Time: Feb 11, 2016 Blood Pressure Diastolic 82 mmHg Blood Pressure Systolic 134 mmHg Height 67 in Results No Known Results Summary Purpose [employer] Submission
== END 2016-11-13 16:45 | disposition home or self-care (01) ==
LOC: EDUNIT# 14:15 → ER 14:18
DX: R07.9 Chest pain, unspecified (principal); G62.9 Polyneuropathy, unspecified; M50.90 Cervical disc disorder, unspecified, unspecified cervical region; I25.10 Atherosclerotic heart disease of native coronary artery without angina pectoris; I25.2 Old myocardial infarction; E78.00 Pure hypercholesterolemia, unspecified; I10 Essential (primary) hypertension; F41.9 Anxiety disorder, unspecified; F32.9 Major depressive disorder, single episode, unspecified; F17.210 Nicotine dependence, cigarettes, uncomplicated; Z79.82 Long term (current) use of aspirin; Z95.5 Presence of coronary angioplasty implant and graft
CPT/HCPCS: 36415; 71010; 80053; 80320; 84484; 85025; 93005

== ENCOUNTER 2017-08-10 12:49 | Inpatient (IN) | payer SELFPAY ==
[2017-08-10] VITALS (11 sets, daily range): BP systolic 123–152; BP diastolic 78–115
[~2017-08-10] VITALS: Ht 172.7 cm; Wt 72.8 kg
[2017-08-10] MEDS ORDERED: ASPIRIN 81 MG CHEW (CHILDREN'S ASA) ONE (12:53)
[2017-08-10] MEDS ORDERED: CLOPIDOGREL 75 MG (PLAVIX) TABLET ONE (12:53)
[2017-08-10] MEDS ORDERED: MIDAZOLAM 5 MG/5 ML (VERSED) VIAL ONE (12:54)
[2017-08-10] MEDS ORDERED: LIDOCAINE 1% INJ 50 ML (XYLOCAINE) VIAL ONE (12:54)
[2017-08-10] MEDS ORDERED: fentaNYL INJECTION 100 MCG/2 ML AMP ONE (12:54)
[2017-08-10] MEDS ORDERED: HEParin 1000 UNIT/ML (10ML VIAL) FOR BOLUS ONE (12:54)
[2017-08-10] MEDS ORDERED: NITRO DRIP 25000 MCG/D5W 250 ML IV ONE (12:55)
[2017-08-10] MEDS ORDERED: HEParin (CATH LAB) 2,000 ML IV ONE (12:55)
[2017-08-10] MEDS ORDERED: NS IV 1000 ML 1,000 ML ONE (12:55)
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
[2017-08-10] MEDS ORDERED: ASPIRIN 81 MG CHEW (CHILDREN'S ASA) PO ONE (13:00)
[2017-08-10] MEDS ORDERED: CLOPIDOGREL 75 MG (PLAVIX) TABLET PO ONE (13:00)
--- OUTSIDE RECORDS SUMMARY | 2017-08-10 13:00 | XMS REPORT | Continuity of Care Document ---
Author Author [facility] Address Unknown Phone Unavailable Allergies Active Description Code Type Severity Reaction Onset Reported/Identified Relationship to Patient Clinical Status Yes No Known Drug Allergies [id number] Drug Allergy Unknown N/A 05/28/2012 Yes Zoloft 100 mg tablet Drug Allergy N/A N/A 09/07/2013 Yes Wellbutrin 100 mg tablet Drug Allergy N/A N/A 12/29/2013 Medications There is no data. Problems Date Dx Coded Attending Type Code Diagnosis Diagnosed By 05/29/2012 Ot 305.00 ALCOHOL ABUSE-UNSPEC 05/29/2012 Ot 305.1 TOBACCO USE DISORDER 05/29/2012 Ot 305.90 DRUG ABUSE NEC-UNSPEC 05/29/2012 Ot 414.01 CORONARY ATHEROSCLEROSIS OF [place] CORON 05/29/2012 Ot 786.50 CHEST PAIN NOS [...] SOPHIA RANDALL APRN 780.99 ANHEDONIA 06/16/2012 EUGENIA ESTRADA MD 300.00 ANXIETY UNSPEC 06/16/2012 EUGENIA ESTRADA MD 780.99 ANHEDONIA 06/16/2012 EUGENIA ESTRADA MD 300.00 ANXIETY UNSPEC 06/16/2012 EUGENIA ESTRADA MD 780.99 ANHEDONIA 06/16/2012 EUGENIA ESTRADA MD 300.00 ANXIETY UNSPEC 06/16/2012 EUGENIA ESTRADA MD 780.99 ANHEDONIA 06/16/2012 TOM BROWN DDS 300.00 ANXIETY UNSPEC 06/16/2012 OTM BROWN DDS 780.99 ANHEDONIA 08/31/2012 NATTY SMITH [...] INVOLVING SHOULDER REGION 12/28/2012 FARZANEH YEAGER DO 786.50 CHEST PAIN 12/28/2012 SOPHIA RANDALL APRN S 786.50 CHEST PAIN 12/28/2012 EUGENIA ESTRADA MD 786.50 CHEST PAIN 12/28/2012 EUGENIA ESTRADA MD 786.50 CHEST PAIN 12/28/2012 EUGENAI ESTRADA MD 786.50 CHEST PAIN 12/28/2012 TOM BROWN DDS 786.50 CHEST PAIN 02/22/2013 ANISA DANIEL MD, FACC FACP CCDS Ot 272.4 HYPERLIPIDEMIA NEC/NOS 02/22/2013 ANISA DANIEL MD, FACC FACP CCDS Ot 305.00 ALCOHOL ABUSE-UNSPEC 02/22/2013 ANISA DANIEL MD, FACC FACP CCDS Ot 305.1 TOBACCO USE DISORDER 02/22/2013 ANISA DANIEL MD, FACC FACP CCDS Ot 414.01 CORONARY ATHEROSCLEROSIS OF [place] CORON 02/22/2013 ANISA DANIEL MD, FACC FACP CCDS Ot 414.4 CORONARY ATHEROSCLEROSIS DUE TO CALCIFIE 02/22/2013 ANISA DANIEL MD, FACC FACP CCDS Ot 786.59 CHEST PAIN NEC 02/22/2013 ANISA DANIEL MD, FACC FACP CCDS Ot V15.81 HX OF PAST NONCOMPLIANCE 02/22/2013 MARÍA OLEA FACC, [facility] Ot V45.82 PERCUTANEOUS TRANSLUM CORON ANGIOPLASTY 02/22/2013 MARÍA OLEA FACC, [facility] CCDS Ot V58.63 LONG-TERM(CURRENT)USE OF ANTIPLATELET/AN 02/22/2013 MARÍA OLEA FACC, [facility] CCD[facility] Ot V58.69 OTH MED,LT,CURRENT USE 03/18/2013 YEAGER DO FARZANEH K 272.4 HYPERLIPIDEMIA 03/18/2013 YEAGER DO FARZANEH K 401.1 HYPERTENSION, BENIGN ESSENTIAL 03/18/2013 YEAGER DO, FARZANEH K 414.00 CORONARY ATHEROSCLEROSIS OF UNSPECIFIED TYPE OF VESSEL [place] OR GRAFT 03/18/2013 SOPHIA RADNALL APRN S 272.4 HYPERLIPIDEMIA 03/18/2013 SOPHIA RANDALL APRN S 401.1 HYPERTENSION, BENIGN ESSENTIAL 03/18/2013 NORMA RANDALL APRNA S 414.00 CORONARY ATHEROSCLEROSIS OF UNSPECIFIED TYPE OF VESSEL [place] OR GRAFT 03/18/2013 EUGENIA ESTRADA MD N 272.4 HYPERLIPIDEMIA 03/18/2013 EUGENIA ESTRADA MD N 401.1 HYPERTENSION, BENIGN ESSENTIAL 03/18/2013 EUGENIA ESTRADA MD N 414.00 CORONARY ATHEROSCLEROSIS OF UNSPECIFIED TYPE OF VESSEL [place] OR GRAFT 03/18/2013 EUGENIA ESTRADA MD N 272.4 HYPERLIPIDEMIA 03/18/2013 EUGENIA ESTRADA MD N 401.1 HYPERTENSION, BENIGN ESSENTIAL 03/18/2013 EUGENIA ESTRADA MD N 414.00 CORONARY ATHEROSCLEROSIS OF UNSPECIFIED TYPE OF VESSEL [place] OR GRAFT 03/18/2013 EUGENIA ESTRADA MD N 272.4 HYPERLIPIDEMIA 03/18/2013 EUGENIA ESTRADA MD N 401.1 HYPERTENSION, BENIGN ESSENTIAL 03/18/2013 EUGENIA ESTRADA MD N 414.00 CORONARY ATHEROSCLEROSIS OF UNSPECIFIED TYPE OF VESSEL [place] OR GRAFT 03/18/2013 WHITE DDS, TOM J 272.4 HYPERLIPIDEMIA 03/18/2013 WHITE DDS, TOM J 401.1 HYPERTENSION, BENIGN ESSENTIAL 03/18/2013 WHITE DDS, TOM J 414.00 CORONARY ATHEROSCLEROSIS OF UNSPECIFIED TYPE OF VESSEL [place] OR GRAFT 05/05/2013 PRAKASH MANAGER GYN, SOPHIA S 525.9 UNSPECIFIED DISORDER OF THE TEETH AND SUPPORTING STRUCTURES 05/05/2013 EUGENIA ESTRADA MD N 525.9 UNSPECIFIED DISORDER OF THE TEETH AND SUPPORTING STRUCTURES 05/05/2013 EUGENIA ESTRADA MD N 525.9 UNSPECIFIED DISORDER OF THE TEETH AND SUPPORTING STRUCTURES 05/05/2013 EUGENIA ESTRADA MD N 525.9 UNSPECIFIED DISORDER OF THE TEETH AND SUPPORTING STRUCTURES 05/05/2013 TOM BROWN DDS 525.9 UNSPECIFIED DISORDER OF THE TEETH AND [...] 786.30 HEMOPTYSIS UNSPECIFIED 07/13/2013 TOM BROWN DDS 303.90 OTHER AND UNSPECIFIED ALCOHOL DEPENDENCE UNSPECIFIED DRINKING BEHAVIOR 07/13/2013 TOM BROWN DDS 578.1 BLOOD IN STOOL 07/13/2013 TOM BROWN DDS 786.30 HEMOPTYSIS UNSPECIFIED 09/18/2013 SANDY GLORIA DO Ot 305.00 ALCOHOL ABUSE-UNSPEC 09/18/2013 SANDY GLORIA DO Ot 305.90 DRUG ABUSE NEC-UNSPEC 09/18/2013 SANDY GLORIA DO Ot 780.97 ALTERED MENTAL STATUS 12/29/2013 EUGENIA ESTRADA MD N 356.9 UNSPECIFIED IDIOPATHIC PERIPHERAL NEUROPATHY 12/29/2013 TOM BROWN DDS J 356.9 UNSPECIFIED IDIOPATHIC PERIPHERAL NEUROPATHY 06/14/2014 TOM BROWN DDS 786.50 CHEST PAIN 06/16/2014 Ot 414.00 06/16/2014 BAIMA, SAMEERA L FERTILIZING MACHINE OPERATOR Ot 272.4 06/16/2014 BAIMA, SAMEERA L FERTILIZING MACHINE OPERATOR Ot 401.9 06/16/2014 BAIMA, SAMEERA L FERTILIZING MACHINE OPERATOR Ot 414.00 06/16/2014 BAIMA, SAMEERA L FERTILIZING MACHINE OPERATOR Ot V58.69 06/22/2014 WHITE DDS, TOM J V01.6 EXPOSURE TO VENEREAL DISEASES 11/15/2014 EUGENIA ESTRADA MD Ot 008.8 VIRAL ENTERITIS NOS 11/15/2014 EUGENIA ESTRADA MD Ot 272.0 PURE HYPERCHOLESTEROLEM 11/15/2014 EUGENIA ESTRADA MD Ot 305.20 CANNABIS ABUSE-UNSPEC 11/15/2014 EUGENIA ESTRADA MD Ot 401.9 HYPERTENSION NOS 11/15/2014 EUGENIA ESTRADA MD Ot 414.01 CORONARY ATHEROSCLEROSIS OF [place] CORON 11/15/2014 EUGENIA ESTRADA MD Ot V11.3 HX OF ALCOHOLISM 11/15/2014 EUGENIA ESTRADA MD Ot V13.01 PERSONAL HISTORY OF URINARY CALCULI 11/15/2014 EUGENIA ESTRADA MD Ot V45.82 PERCUTANEOUS TRANSLUM CORON ANGIOPLASTY 11/15/2014 Ot 414.00 11/15/2014 BAIMA, SAMEERA L FERTILIZING MACHINE OPERATOR Ot 272.4 11/15/2014 BAIMA, SAMEERA L FERTILIZING MACHINE OPERATOR Ot 401.9 11/15/2014 BAIMA, SAMEERA L FERTILIZING MACHINE OPERATOR Ot 414.00 11/15/2014 BAIMA, SAMEERA L FERTILIZING MACHINE OPERATOR Ot V58.69 11/15/2014 BAIMA, SAMEERA L FERTILIZING MACHINE OPERATOR Ot 272.4 11/15/2014 BAIMA, SAMEERA L FERTILIZING MACHINE OPERATOR Ot 414.00 11/15/2014 BAIMA, SAMEERA L FERTILIZING MACHINE OPERATOR Ot 786.50 07/24/2016 Ot 414.00 CORON ATHEROSCLER NOS TYPE VESSEL, NATIV 07/24/2016 BAIMA, SAMEERA L FERTILIZING MACHINE OPERATOR Ot 272.4 HYPERLIPIDEMIA NEC/NOS 07/24/2016 BAIMA, SAMEERA L FERTILIZING MACHINE OPERATOR Ot 401.9 HYPERTENSION NOS 07/24/2016 BAIMA, SAMEERA L FERTILIZING MACHINE OPERATOR Ot 414.00 CORON ATHEROSCLER NOS TYPE VESSEL, NATIV 07/24/2016 BAIMA, SAMEERA L FERTILIZING MACHINE OPERATOR Ot V58.69 OTH MED,LT,CURRENT USE 07/24/2016 BAIMA, SAMEERA L FERTILIZING MACHINE OPERATOR Ot 272.4 HYPERLIPIDEMIA NEC/NOS 07/24/2016 BAIMA, SAMEERA L FERTILIZING MACHINE OPERATOR Ot 414.00 CORON ATHEROSCLER NOS TYPE VESSEL, NATIV 07/24/2016 BAIMA, SAMEERA L FERTILIZING MACHINE OPERATOR Ot 786.50 CHEST PAIN NOS 07/25/2016 NANI OLEA, RAUL Mcgill Ot F11.151 OPIOID ABUSE W OPIOID-INDUCED PSYCHOTIC 07/25/2016 RAUL CARDOZA MD Ot F17.210 NICOTINE DEPENDENCE, CIGARETTES, UNCOMPL 08/18/2016 Ot 414.00 CORON ATHEROSCLER NOS TYPE VESSEL, NATIV 08/18/2016 BAIMA, SAMEERA L FERTILIZING MACHINE OPERATOR Ot 272.4 HYPERLIPIDEMIA NEC/NOS 08/18/2016 BAIMA, SAMEERA L FERTILIZING MACHINE OPERATOR Ot 401.9 HYPERTENSION NOS 08/18/2016 BAIMA, SAMEERA L FERTILIZING MACHINE OPERATOR Ot 414.00 CORON ATHEROSCLER NOS TYPE VESSEL, NATIV 08/18/2016 BAIMA, SAMEERA L FERTILIZING MACHINE OPERATOR Ot V58.69 OTH MED,LT,CURRENT USE 08/18/2016 BAIMA, SAMEERA L FERTILIZING MACHINE OPERATOR Ot 272.4 HYPERLIPIDEMIA NEC/NOS 08/18/2016 BAIMA, SAMEERA L FERTILIZING MACHINE OPERATOR Ot 414.00 CORON ATHEROSCLER NOS TYPE VESSEL, NATIV 08/18/2016 BAIMA, SAMEERA L FERTILIZING MACHINE OPERATOR Ot 786.50 CHEST PAIN NOS 10/14/2016 Ot 414.00 CORON ATHEROSCLER NOS TYPE VESSEL, NATIV 10/14/2016 BAIMA, SAMEERA L FERTILIZING MACHINE OPERATOR Ot 272.4 HYPERLIPIDEMIA NEC/NOS 10/14/2016 BAIMA, SAMEERA L FERTILIZING MACHINE OPERATOR Ot 401.9 HYPERTENSION NOS 10/14/2016 BAIMA, SAMEERA L FERTILIZING MACHINE OPERATOR Ot 414.00 CORON ATHEROSCLER NOS TYPE VESSEL, NATIV 10/14/2016 BAIMA, SAMEERA L FERTILIZING MACHINE OPERATOR Ot V58.69 OTH MED,LT,CURRENT USE 10/14/2016 BAIMA, SAMEERA L FERTILIZING MACHINE OPERATOR Ot 272.4 HYPERLIPIDEMIA NEC/NOS 10/14/2016 BAIMA, SAMEERA L FERTILIZING MACHINE OPERATOR Ot 414.00 CORON ATHEROSCLER NOS TYPE VESSEL, NATIV 10/14/2016 BAIMA, SAMEERA L FERTILIZING MACHINE OPERATOR Ot 786.50 CHEST PAIN NOS 10/21/2016 Ot 414.00 CORON ATHEROSCLER NOS TYPE VESSEL, NATIV 10/21/2016 BAIMA, SAMEERA L FERTILIZING MACHINE OPERATOR Ot 272.4 HYPERLIPIDEMIA NEC/NOS 10/21/2016 BAIMA, SAMEERA L FERTILIZING MACHINE OPERATOR Ot 401.9 HYPERTENSION NOS 10/21/2016 BAIMA, SAMEERA L FERTILIZING MACHINE OPERATOR Ot 414.00 CORON ATHEROSCLER NOS TYPE VESSEL, NATIV 10/21/2016 BAIMA, SAMEERA L FERTILIZING MACHINE OPERATOR Ot V58.69 OTH MED,LT,CURRENT USE 10/21/2016 BAIMA, SAMEERA L FERTILIZING MACHINE OPERATOR Ot 272.4 HYPERLIPIDEMIA NEC/NOS 10/21/2016 BAIMA, SAMEERA L FERTILIZING MACHINE OPERATOR Ot 414.00 CORON ATHEROSCLER NOS TYPE VESSEL, NATIV 10/21/2016 BAIMA, SAMEERA L FERTILIZING MACHINE OPERATOR Ot 786.50 CHEST PAIN NOS 11/13/2016 Ot 414.00 CORON ATHEROSCLER NOS TYPE VESSEL, NATIV 11/13/2016 BAIMA, SAMEERA L FERTILIZING MACHINE OPERATOR Ot 272.4 HYPERLIPIDEMIA NEC/NOS 11/13/2016 BAIMA, SAMEERA L FERTILIZING MACHINE OPERATOR Ot 401.9 HYPERTENSION NOS 11/13/2016 BAIMA, SAMEERA L FERTILIZING MACHINE OPERATOR Ot 414.00 CORON ATHEROSCLER NOS TYPE VESSEL, NATIV 11/13/2016 BAIMA, SAMEERA L FERTILIZING MACHINE OPERATOR Ot V58.69 OTH MED,LT,CURRENT USE 11/13/2016 BAIMA, SAMEERA L FERTILIZING MACHINE OPERATOR Ot 272.4 HYPERLIPIDEMIA NEC/NOS 11/13/2016 BAIMA, SAMEERA L FERTILIZING MACHINE OPERATOR Ot 414.00 CORON ATHEROSCLER NOS TYPE VESSEL, NATIV 11/13/2016 BAIMA, SAMEERA L FERTILIZING MACHINE OPERATOR Ot 786.50 CHEST PAIN NOS Procedures Code Description Performed By Performed On Cardiolog Luis Jackson 07/29/2012 08654 THERAPUTIC INJ SQ/IM 05/05/2013 J0696 ROCEPHIN INJ 1 g 05/05/2013 24547 THERAPUTIC INJ SQ/IM 05/07/2013 J0696 ROCEPHIN INJ 1 g 05/07/2013 GENERAL S DUSTIN ALVARADO 07/13/2013 29832 XRAY CERVICAL SPINE, 2 OR 3 VIEWS 12/29/2013 83103 XRAY LUMBAR SPINE 2 OR 3 VIEWS 12/29/2013 47080 CMP 12/29/2013 93832 VIT B 12 12/29/2013 41958 FOLATE 12/29/2013 22917 NUCLEAR STRESS TESTING 06/30/2014 41302 OXIMETRY 06/30/2014 Results Test Result Range PT panel in platelet poor plasma by coagulation assay - 07/24/16 16:36 Prothrombin time (PT) in platelet poor plasma by coagulation assay 13.3 s 12.2-14.7 INR in platelet poor plasma or blood by coagulation assay 1.0 0.8-1.4 Comprehensive metabolic panel - 07/24/16 16:36 Serum or plasma sodium measurement (moles/volume) 136 mmol/L 135-145 Serum or plasma potassium measurement (moles/volume) 3.6 mmol/L 3.6-5.0 Serum or plasma chloride measurement (moles/volume) 105 mmol/L 98-107 Carbon dioxide 20 mmol/L 21-32 Serum or plasma anion gap determination (moles/volume) 11 mmol/L 5-14 Serum or plasma urea nitrogen measurement (mass/volume) 12 mg/dL 7-18 Serum or plasma creatinine measurement (mass/volume) 0.99 mg/dL 0.60-1.30 Serum or plasma urea nitrogen/creatinine mass [...] Serum or plasma salicylates measurement (mass/volume) < mg/dL 5.0-20.0 Serum or plasma acetaminophen measurement (mass/volume) - 07/24/16 16:36 Serum or plasma acetaminophen measurement (mass/volume) < ug/mL 10-30 Serum or plasma ethanol measurement (mass/volume) - 07/24/16 16:36 Serum or plasma ethanol measurement (mass/volume) < mg/dL <10 Complete blood count (CBC) with automated white blood cell (WBC) differential - 07/24/16 16:36 Blood leukocytes automated count (number/volume) 9.4 10*3/uL 4.3-11.0 Blood erythrocytes automated count (number/volume) 4.90 10*6/uL 4.35-5.85 Venous blood hemoglobin measurement (mass/volume) 15.1 [...] Automated blood platelet mean volume measurement 10.2 [foz_us] 7.4-10.4 Automated blood neutrophils/100 leukocytes 69 % [...] Urine pH measurement by test strip 6 5-9 Specific gravity of urine by test strip 1.020 1.016- 1.022 Urine protein assay by test strip, semi-quantitative [...] 14:35 Blood leukocytes automated count (number/volume) 9.1 10*3/uL 4.3-11.0 Blood erythrocytes automated count (number/volume) 5.04 10*6/uL 4.35-5.85 Venous blood hemoglobin measurement (mass/volume) 15.6 [...] Automated blood platelet mean volume measurement 10.5 [foz_us] 7.4-10.4 Automated blood neutrophils/100 leukocytes 61 % [...] Serum or plasma sodium measurement (moles/volume) 139 mmol/L 135-145 Serum or plasma potassium measurement (moles/volume) 3.7 mmol/L 3.6-5.0 Serum or plasma chloride measurement (moles/volume) 107 mmol/L 98-107 Carbon dioxide 25 mmol/L 21-32 Serum or plasma anion gap determination (moles/volume) 7 mmol/L 5-14 Serum or plasma urea nitrogen measurement (mass/volume) 7 mg/dL 7-18 Serum or plasma creatinine measurement (mass/volume) 0.95 mg/dL 0.60-1.30 Serum or plasma urea nitrogen/creatinine mass ratio 7 0- 20 Serum or plasma creatinine measurement with calculation [...] or plasma troponin i.cardiac measurement (mass/volume) < ng/ mL <0.30 Serum or plasma ethanol measurement (mass/volume) - 11/13/16 14:35 Serum or plasma ethanol measurement (mass/volume) < mg/dL <10 Encounters ACCT No. Visit Date/Time Discharge Status Pt. Type Provider Facility Loc./Unit Complaint [id number] 06/30/2014 08:03:00 06/30/2014 23:59:59 CLS Outpatient TOM BROWN DDS [id number] 12/29/2013 14:12:00 12/29/2013 23:59:59 CLS Outpatient EUGENIA ESTRADA MD [id number] 09/07/2013 09:45:00 09/07/2013 23:59:59 CLS Outpatient EUGENIA ESTRADA MD [id number] 07/13/2013 10:08:00 07/13/2013 23:59:59 CLS Outpatient EUGENIA ESTRADA MD [id number] 05/07/2013 10:56:00 05/07/2013 23:59:59 CLS Outpatient SOPHIA RANDALL APRN [id number] 03/18/2013 14:47:00 03/18/2013 23:59:59 CLS Outpatient FARZANEH YEAGER DO [id number] 08/31/2012 10:56:00 08/31/2012 23:59:59 CLS Outpatient NATTY SMITH APRN [id number] 06/16/2012 08:47:00 06/16/2012 23:59:59 CLS Outpatient FARZANEH YEAGER DO [id number] 10/29/2012 11:04:00 Document Registration [id number] 11/13/2016 14:18:00 11/13/2016 16:45:00 DIS Emergency GERONIMO GIFFORD MD Via [facility] ER BLOOD PANEL NEEDED POSS HEART ATTACK IN LAST WEEK [id number] 07/24/2016 15:11:00 07/25/2016 11:47:00 DIS Inpatient RAUL CARDOZA MD Via [address] DRUG WITHDRAWL [id number] 07/24/2016 15:01:00 07/24/2016 15:01:00 CAN Preadmit GERONIMO GIFFORD MD Via [facility] MENTAL HEALTH [id number] 11/14/2014 13:25:00 11/15/2014 11:25:00 DIS Inpatient EUGENIA ESTRADA MD Via [facility] 4TH COLITIS;INTRACTABLE NAUSEA AND VOMITING [id number] 06/19/2014 12:05:00 06/19/2014 23:59:59 CLS Outpatient SAMEERA PLUNKETT [facility] CARD CP,CAD,HLP [id number] 09/18/2013 01:32:00 09/18/2013 03:34:00 DIS Emergency SANDY GLORIA DO Via [facility] AMS [id number] 03/17/2013 11:47:00 03/17/2013 23:59:59 CLS Outpatient [id number] 02/22/2013 07:05:00 02/22/2013 14:34:00 DIS Outpatient AMRÍA OLEA FACC, ANISA SANDOVAL CCDS [facility] CATH CAD,SOB, FATIGUE,ANGINA [id number] 02/14/2013 10:26:00 02/14/2013 23:59:59 CLS Outpatient SAMEERA PLUNKETT [facility] LAB CAD,HTN,HLP,STATIN [place] [id number] 07/07/2012 09:41:00 Document Registration [id number] 05/28/2012 12:45:00 Document Registration
[2017-08-10] MEDS ORDERED: AMIODARONE 150 MG/3 ML (CORDARONE) AMP IV ONE (13:01)
[2017-08-10] MEDS ORDERED: CLOPIDOGREL 300 MG (PLAVIX) TABLET PO ONE (13:10)
--- NOTE | 2017-08-10 13:11 | ED CPR ---
HPI-CPR General Stated Complaint: CP History of Present Illness Date Seen by Provider: Aug 10, 2017 Time Seen by Provider: 12:54 Initial Comments This 47-year-old gentleman presents to the emergency room in acute distress with apparent acute coronary syndrome. He has a known history of heart disease and had a stent placed by Dr. Jackson several years ago. He has not been taking his medications for about the past 2 years according to his . By the time he was lifted into the bed he became pulseless and developed agonal breathing. CPR was initiated. He was placed on the monitor and found to be in V. fib. Defibrillation was pursued which converted him to a bigeminy rhythm with pulse. Patient again became alert and was talking to staff. reports the noncompliance with medications. He also stopped following with cardiology. She states prior history of drug and alcohol use but is not aware of anything recent. Patient is profoundly diaphoretic and in distress. Allergies and Home Medications Allergies Coded Allergies: No Known Drug Allergies (Unverified , 05/28/12) Home Medications Aspirin 81 Mg Tab.chew, 81 MG PO DAILY, (Reported) Atorvastatin Calcium 20 Mg Tablet, 20 MG PO DAILY, (Reported) Pantoprazole Sodium 40 Mg Tablet.dr, 40 MG PO DAILY, (Reported) Sucralfate 1 Gm Tablet, 1 GM PO ACHS, (Reported) Patient Home Medication List Home Medication List Reviewed: Yes Review of Systems Constitutional: see HPI EENTM: No Symptoms Reported Respiratory: No Symptoms Reported Cardiovascular: See HPI Gastrointestinal: No Symptoms Reported Genitourinary: No Symptoms Reported Musculoskeletal: no symptoms reported Skin: no symptoms reported Psychiatric/Neurological: See HPI Endocrine: No Symptoms Reported Past Jcwhljz-Liqtom-Cgorab Hx Patient Social History Recreational Drug Use: Yes (Prior use) Smoking Status: Current Everyday Smoker Type Used: Cigarettes Recent Hopitalizations: Yes Immunizations Up To Date Tetanus Booster (TDap): Unknown PED Vaccines UTD: No Surgeries History of Surgeries: Yes (JAW FX REPAIR) Surgeries: Cardiac, Coronary Stent Respiratory History of Respiratory Disorde: No Cardiovascular History of Cardiac Disorders: Yes (STENT X 1 ) Cardiac Disorders: Coronary Artery Disease, Heart Attack, Heart Murmur, High Cholesterol, Hypertension Neurological History of Neurological Disord: No Reproductive System Hx Reproductive Disorders: No Sexually Transmitted Disease: No HIV/AIDS: No Genitourinary History of Genitourinary Disor: Yes Genitourinary Disorders: Kidney Stones Gastrointestinal History of Gastrointestinal Di: Yes (HX OF BLOOD IN STOOL) Musculoskeletal History of Musculoskeletal Dis: Yes Musculoskeletal Disorders: Arthritis, Chronic Back Pain Endocrine History of Endocrine Disorders: No HEENT Loss of Vision: Denies Hearing Impairment: Denies Cancer History of Cancer: No Psychosocial History of Psychiatric Problem: Yes (hAS NOT BEEN DX W/ MENTAL DISORDER ) Behavioral Health Disorders: Anxiety, Depression Integumentary History of Skin or Integumenta: No Blood Transfusions History of Blood Disorders: No Physical Exam Vital Signs Vital Signs - First Documented 08/10/17 08/10/17 12:49 13:00 Temp 96.9 Pulse 110 Resp 24 B/P (MAP) 186/111 (136) Pulse Ox 96 O2 Delivery Room Air O2 Flow Rate 3.00 Capillary Refill : General Appearance: WD/WN, Severe Distress HEENT: PERRL/EOMI, Normal ENT Inspection Neck: Normal Inspection Respiratory: Lungs Clear, Normal Breath Sounds, No Accessory Muscle Use, No Respiratory Distress Cardiovascular: Other (V-Fib and bigeminy on the monitor. Initially pulseless) Gastrointestinal: Soft, No Distended Extremity: Normal Inspection, No Pedal Edema Neurologic/Psychiatric: Alert, Oriented x3, Other (Alert and oriented during rhythm with pulse. Unresponsive during pulseless rhythm. Patient would become alert during perfusing during CPR) Skin: Diaphoresis, Pallor Progress/Results/Core Measures Results/Orders My Orders Orders - BELKIS CUEVA MD Aspirin Chewable Tablet (Baby Aspirin Ch (08/10/17 12:53) Clopidogrel Tablet (Plavix Tablet) (08/10/17 12:53) Lidocaine 1% (Xylocaine 1%) (08/10/17 12:54) Midazolam Injection (Versed Injection) (08/10/17 12:54) Fentanyl Injection (Sublimaze Injection (08/10/17 12:54) Heparin (Bolus Per Protocol) (Heparin (B (08/10/17 12:54) Ns Iv 1000 Ml (Sodium Chloride 0.9%) (08/10/17 12:55) Nitro Drip 88457 Mcg/D5w (Nitroglycerin (08/10/17 12:55) Heparin ([employer]) (Heparin ([employer])) (08/10/17 12:55) Cbc With Automated Diff (08/10/17 12:58) Magnesium (08/10/17 12:58) Ekg Tracing (08/10/17 12:58) Cardiac Profile 1 (08/10/17 12:58) Comprehensive Metabolic Panel (08/10/17 12:58) Myoglobin Serum (08/10/17 12:58) Protime With Inr (08/10/17 12:58) Partial Thromboplastin Time (08/10/17 12:58) O2 (08/10/17 12:58) Monitor-Rhythm Ecg Trace Only (08/10/17 12:58) Aspirin Chewable Tablet (Baby Aspirin Ch (08/10/17 13:00) Saline Lock/Iv-Start (08/10/17 12:58) Clopidogrel Tablet (Plavix Tablet) (08/10/17 13:00) Manual Differential (08/10/17 15:20) Vital Signs/I&O Vital Sign - Last 12Hours 08/10/17 08/10/17 12:49 13:00 Temp 96.9 Pulse 110 Resp 24 B/P (MAP) 186/111 (136) Pulse Ox 96 96 O2 Delivery Room Air Nasal Cannula O2 Flow Rate 3.00 Progress Note : Time: 13:06 Progress Note Patient presented in acute coronary syndrome clutching his chest in severe distress. By the time he was placed in the bed he became pulseless and unresponsive and developed agonal breathing. CPR was initiated and V. fib was noted on the monitor. Patient was defibrillated which brought him into bigeminy with a pulse. CPR was conducted for approximately [address] elevation was noted monitor. Patient lapsed into V. fib again and required a second defibrillation. He received aspirin 324 mg, Plavix 300 mg, and amiodarone 300 mg by IV route. Dr. Johns was immediately called and sent Dr. Pollack over for immediate assessment. Dr. Pollack promptly presented to the ER and patient has been taken to the [facility] for immediate treatment of acute VT. ECG Initial ECG Impression Date: Aug 10, 2017 Initial ECG Impression Time: 12:56 Initial ECG Rate: 102 Initial ECG Rhythm: S.Tach Comment Sinus tachycardia with ST elevation and depression in multiple leads. Acute myocardial infarction noted. EKG : EKG Time: 12:58 Rate: 133 Comment This EKG demonstrated sinus tachycardia with ST elevations suggestive of a VT. This rhythm converted into V. fib. Critical Care Note Critical Care Start Time: 12:54 Stop Time: 13:05 Total Time (minutes) 11 Departure Impression Impression: Primary Impression: Ventricular fibrillation Additional Impression: Cardiac arrest Disposition: ADMITTED INPATIENT Condition: Critical Departure-Patient Inst. Referrals: [facility] (PCP/Family) Primary Care Physician Copy Copies To 1: Luis Manuel POLLACK MD, JOSHUA T MD Aug 10, 2017 13:11
[2017-08-10] MEDS ORDERED: EPTIFIBATIDE BOLUS 20 ML IV ONE (13:34)
--- OUTSIDE RECORDS SUMMARY | 2017-08-10 13:35 | XMS REPORT | Continuity of Care Document ---
Author Author [facility] Address Unknown Phone Unavailable Allergies Active Description Code Type Severity Reaction Onset Reported/Identified Relationship to Patient Clinical Status Yes No Known Drug Allergies [id number] Drug Allergy Unknown N/A 05/28/2012 Yes Zoloft 100 mg tablet Drug Allergy N/A N/A 09/07/2013 Yes Wellbutrin 100 mg tablet Drug Allergy N/A N/A 12/29/2013 Medications There is no data. Problems Date Dx Coded Attending Type Code Diagnosis Diagnosed By 05/29/2012 Ot 305.00 ALCOHOL ABUSE-UNSPEC 05/29/2012 Ot 305.1 TOBACCO USE DISORDER 05/29/2012 Ot 305.90 DRUG ABUSE NEC-UNSPEC 05/29/2012 Ot 414.01 CORONARY ATHEROSCLEROSIS OF HOH CORON 05/29/2012 Ot 786.50 CHEST PAIN NOS [...] FACP CCDS Ot 414.01 CORONARY ATHEROSCLEROSIS OF HOH CORON 02/22/2013 ANISA DANIEL MD, FACC FACP CCDS Ot 414.4 CORONARY ATHEROSCLEROSIS DUE TO CALCIFIE 02/22/2013 ANISA DANIEL MD, FACC FACP CCDS Ot 786.59 CHEST PAIN NEC 02/22/2013 ANISA DANIEL MD, FACC FACP CCDS Ot V15.81 HX OF PAST NONCOMPLIANCE 02/22/2013 MARÍA OLEA FACC, [facility]ISA [facility] Ot V45.82 PERCUTANEOUS TRANSLUM CORON ANGIOPLASTY 02/22/2013 MARÍA OLEA FACC, [facility]ISA [facility] CCD[facility] Ot V58.63 LONG-TERM(CURRENT)USE OF ANTIPLATELET/AN 02/22/2013 MARÍA OLEA FACC, [facility]ISA [facility] CCD[facility] Ot V58.69 OTH MED,LT,CURRENT USE 03/18/2013 YEAGER DO FARZANEH K 272.4 HYPERLIPIDEMIA 03/18/2013 YEAGER DO FARZANEH K 401.1 HYPERTENSION, BENIGN ESSENTIAL 03/18/2013 YEAGER DO, FARZANEH K 414.00 CORONARY ATHEROSCLEROSIS OF UNSPECIFIED TYPE OF VESSEL HOH OR GRAFT 03/18/2013 SOPHIA RANDALL APRN S 272.4 HYPERLIPIDEMIA 03/18/2013 SOPHIA RANDALL APRN S 401.1 HYPERTENSION, BENIGN ESSENTIAL 03/18/2013 NORMA RANDALL APRNA S 414.00 CORONARY ATHEROSCLEROSIS OF UNSPECIFIED TYPE OF VESSEL HOH OR GRAFT 03/18/2013 EUGENIA ESTRADA MD N 272.4 HYPERLIPIDEMIA 03/18/2013 EUGENIA ESTRADA MD N 401.1 HYPERTENSION, BENIGN ESSENTIAL 03/18/2013 EUGENIA ESTRADA MD N 414.00 CORONARY ATHEROSCLEROSIS OF UNSPECIFIED TYPE OF VESSEL HOH OR GRAFT 03/18/2013 EUGENIA ESTRADA MD N 272.4 HYPERLIPIDEMIA 03/18/2013 EUGENIA ESTRADA MD N 401.1 HYPERTENSION, BENIGN ESSENTIAL 03/18/2013 EUGENIA ESTRADA MD N 414.00 CORONARY ATHEROSCLEROSIS OF UNSPECIFIED TYPE OF VESSEL HOH OR GRAFT 03/18/2013 EUGENIA ESTRADA MD N 272.4 HYPERLIPIDEMIA 03/18/2013 EUGENIA ESTRADA MD N 401.1 HYPERTENSION, BENIGN ESSENTIAL 03/18/2013 EUGENIA ESTRADA MD N 414.00 CORONARY ATHEROSCLEROSIS OF UNSPECIFIED TYPE OF VESSEL HOH OR GRAFT 03/18/2013 WHITE DDS, TOM J 272.4 HYPERLIPIDEMIA 03/18/2013 WHITE DDS, TOM J 401.1 HYPERTENSION, BENIGN ESSENTIAL 03/18/2013 WHITE DDS, TOM J 414.00 CORONARY ATHEROSCLEROSIS OF UNSPECIFIED TYPE OF VESSEL HOH OR GRAFT 05/05/2013 PRAKASH PRACTICAL NURSING INSTRUCTOR, SOPHIA S 525.9 UNSPECIFIED DISORDER OF THE [...] 06/16/2014 Ot 414.00 06/16/2014 BAIMA, SAMEERA L CODING SPECIALIST HOME HE[facility] Ot 272.4 06/16/2014 BAIMA, SAMEERA L CODING SPECIALIST HOME HEALTH Ot 401.9 06/16/2014 BAIMA, SAMEERA L CODING SPECIALIST [facility] HEALTH Ot 414.00 06/16/2014 BAIMA, SAMEERA L CODING SPECIALIST HOME HEALTH Ot V58.69 06/22/2014 WHITE DDS, TOM J V01.6 EXPOSURE TO VENEREAL DISEASES 11/15/2014 EUGENIA ESTRADA MD Ot 008.8 VIRAL ENTERITIS NOS 11/15/2014 EUGENIA ESTRADA MD Ot 272.0 PURE HYPERCHOLESTEROLEM 11/15/2014 EUGENIA ESTRADA MD Ot 305.20 CANNABIS ABUSE-UNSPEC 11/15/2014 EUGENIA ESTRADA MD Ot 401.9 HYPERTENSION NOS 11/15/2014 EUGENIA ESTRADA MD Ot 414.01 CORONARY ATHEROSCLEROSIS OF HOH CORON 11/15/2014 EUGENIA ESTRADA MD Ot V11.3 HX OF ALCOHOLISM 11/15/2014 EUGENIA ESTRADA MD Ot V13.01 PERSONAL HISTORY OF URINARY CALCULI 11/15/2014 EUGENIA ESTRADA MD Ot V45.82 PERCUTANEOUS TRANSLUM CORON ANGIOPLASTY 11/15/2014 Ot 414.00 11/15/2014 BAIMA, SAMEERA L CODING SPECIALIST HOME HEALTH Ot 272.4 11/15/2014 BAIMA, SAMEERA L CODING SPECIALIST HOME HEALTH Ot 401.9 11/15/2014 BAIMA, SAMEERA L CODING SPECIALIST [facility] HEALTH Ot 414.00 11/15/2014 BAIMA, SAMEERA L CODING SPECIALIST [facility] HEALTH Ot V58.69 11/15/2014 BAIMA, SAMEERA L CODING SPECIALIST [facility] HEALTH Ot 272.4 11/15/2014 BAIMA, SAMEERA L CODING SPECIALIST HOME HEALTH Ot 414.00 11/15/2014 BAIMA, SAMEERA L CODING SPECIALIST [facility] HEALTH Ot 786.50 07/24/2016 Ot 414.00 CORON ATHEROSCLER NOS TYPE VESSEL, NATIV 07/24/2016 BAIMA, SAMEERA L CODING SPECIALIST [facility] HEALTH Ot 272.4 HYPERLIPIDEMIA NEC/NOS 07/24/2016 BAIMA, SAMEERA L CODING SPECIALIST [facility] HEALTH Ot 401.9 HYPERTENSION NOS 07/24/2016 BAIMA, SAMEERA L CODING SPECIALIST [facility] HEALTH Ot 414.00 CORON ATHEROSCLER NOS TYPE VESSEL, NATIV 07/24/2016 BAIMA, SAMEERA L CODING SPECIALIST [facility] HEALTH Ot V58.69 OTH MED,LT,CURRENT USE 07/24/2016 BAIMA, SAMEERA L CODING SPECIALIST [facility] HEALTH Ot 272.4 HYPERLIPIDEMIA NEC/NOS 07/24/2016 BAIMA, SAMEERA L CODING SPECIALIST HOME HEALTH Ot 414.00 CORON ATHEROSCLER NOS TYPE VESSEL, NATIV 07/24/2016 BAIMA, SAMEERA L CODING SPECIALIST [facility] HEALTH Ot 786.50 CHEST PAIN NOS 07/25/2016 NANI OLEA, RAUL Mcgill Ot F11.151 OPIOID ABUSE W OPIOID-INDUCED PSYCHOTIC 07/25/2016 RAUL CARDOZA MD Ot F17.210 NICOTINE DEPENDENCE, CIGARETTES, UNCOMPL 08/18/2016 Ot 414.00 CORON ATHEROSCLER NOS TYPE VESSEL, NATIV 08/18/2016 BAIMA, SAMEERA L CODING SPECIALIST [facility] HEALTH Ot 272.4 HYPERLIPIDEMIA NEC/NOS 08/18/2016 BAIMA, SAMEERA L CODING SPECIALIST [facility] HEALTH Ot 401.9 HYPERTENSION NOS 08/18/2016 BAIMA, SAMEERA L CODING SPECIALIST [facility] HEALTH Ot 414.00 CORON ATHEROSCLER NOS TYPE VESSEL, NATIV 08/18/2016 BAIMA, SAMEERA L CODING SPECIALIST [facility] HEALTH Ot V58.69 OTH MED,LT,CURRENT USE 08/18/2016 BAIMA, SAMEERA L CODING SPECIALIST [facility] HEALTH Ot 272.4 HYPERLIPIDEMIA NEC/NOS 08/18/2016 BAIMA, SAMEERA L CODING SPECIALIST [facility] HEALTH Ot 414.00 CORON ATHEROSCLER NOS TYPE VESSEL, NATIV 08/18/2016 BAIMA, SAMEERA L CODING SPECIALIST [facility] HEALTH Ot 786.50 CHEST PAIN NOS 10/14/2016 Ot 414.00 CORON ATHEROSCLER NOS TYPE VESSEL, NATIV 10/14/2016 BAIMA, SAMEERA L CODING SPECIALIST [facility] HEALTH Ot 272.4 HYPERLIPIDEMIA NEC/NOS 10/14/2016 BAIMA, SAMEERA L CODING SPECIALIST [facility] HEALTH Ot 401.9 HYPERTENSION NOS 10/14/2016 BAIMA, SAMEERA L CODING SPECIALIST HOME HEALTH Ot 414.00 CORON ATHEROSCLER NOS TYPE VESSEL, NATIV 10/14/2016 BAIMA, SAMEERA L CODING SPECIALIST [facility] HEALTH Ot V58.69 OTH MED,LT,CURRENT USE 10/14/2016 BAIMA, SAMEERA L CODING SPECIALIST HOME HEALTH Ot 272.4 HYPERLIPIDEMIA NEC/NOS 10/14/2016 BAIMA, SAMEERA L CODING SPECIALIST [facility] HEALTH Ot 414.00 CORON ATHEROSCLER NOS TYPE VESSEL, NATIV 10/14/2016 BAIMA, SAMEERA L CODING SPECIALIST HOME HEALTH Ot 786.50 CHEST PAIN NOS 10/21/2016 Ot 414.00 CORON ATHEROSCLER NOS TYPE VESSEL, NATIV 10/21/2016 BAIMA, SAMEERA L CODING SPECIALIST HOME HEALTH Ot 272.4 HYPERLIPIDEMIA NEC/NOS 10/21/2016 BAIMA, SAMEERA L CODING SPECIALIST [facility] HEALTH Ot 401.9 HYPERTENSION NOS 10/21/2016 BAIMA, SAMEERA L CODING SPECIALIST [facility] HEALTH Ot 414.00 CORON ATHEROSCLER NOS TYPE VESSEL, NATIV 10/21/2016 BAIMA, SAMEERA L CODING SPECIALIST [facility] HEALTH Ot V58.69 OTH MED,LT,CURRENT USE 10/21/2016 BAIMA, SAMEERA L CODING SPECIALIST HOME HEALTH Ot 272.4 HYPERLIPIDEMIA NEC/NOS 10/21/2016 BAIMA, SAMEERA L CODING SPECIALIST [facility] HEALTH Ot 414.00 CORON ATHEROSCLER NOS TYPE VESSEL, NATIV 10/21/2016 BAIMA, SAMEERA L CODING SPECIALIST [facility] HEALTH Ot 786.50 CHEST PAIN NOS 11/13/2016 Ot 414.00 CORON ATHEROSCLER NOS TYPE VESSEL, NATIV 11/13/2016 BAIMA, SAMEERA L CODING SPECIALIST [facility] HEALTH Ot 272.4 HYPERLIPIDEMIA NEC/NOS 11/13/2016 BAIMA, SAMEERA L CODING SPECIALIST [facility] HEALTH Ot 401.9 HYPERTENSION NOS 11/13/2016 BAIMA, SAMEERA L CODING SPECIALIST HOME HEALTH Ot 414.00 CORON ATHEROSCLER NOS TYPE VESSEL, NATIV 11/13/2016 BAIMA, SAMEERA L CODING SPECIALIST [facility] HEALTH Ot V58.69 OTH MED,LT,CURRENT USE 11/13/2016 BAIMA, SAMEERA L CODING SPECIALIST HOME HEALTH Ot 272.4 HYPERLIPIDEMIA NEC/NOS 11/13/2016 BAIMA, SAMEERA L CODING SPECIALIST HOME HEALTH Ot 414.00 CORON ATHEROSCLER NOS TYPE VESSEL, NATIV 11/13/2016 BAIMA, SAMEERA L CODING SPECIALIST HOME HEALTH Ot 786.50 CHEST PAIN NOS Procedures Code Description Performed By Performed On Cardiolog Luis Jackson 07/29/2012 55334 THERAPUTIC INJ SQ/IM 05/05/2013 J0696 ROCEPHIN INJ 1 g 05/05/2013 45326 THERAPUTIC INJ SQ/IM 05/07/2013 J0696 ROCEPHIN INJ 1 g 05/07/2013 GENERAL S DUSTIN ALVARADO 07/13/2013 16587 XRAY CERVICAL SPINE, 2 OR 3 VIEWS 12/29/2013 89671 XRAY LUMBAR SPINE 2 OR 3 VIEWS 12/29/2013 46394 CMP 12/29/2013 91179 VIT B 12 12/29/2013 47196 FOLATE 12/29/2013 92072 NUCLEAR STRESS TESTING 06/30/2014 31631 OXIMETRY 06/30/2014 Results Test Result Range PT [...] Status Pt. Type Provider Facility Loc./Unit Complaint [id number] 06/30/2014 08:03:00 06/30/2014 23:59:59 CLS Outpatient TOM BROWN DDS [id number] 12/29/2013 14:12:00 12/29/2013 23:59:59 CLS Outpatient EUGENIA ESTRADA MD [id number] 09/07/2013 09:45:00 09/07/2013 23:59:59 CLS Outpatient EUGENIA ESTRADA MD [id number] 07/13/2013 10:08:00 07/13/2013 23:59:59 CLS Outpatient EUGENIA ESTRADA MD [id number] 05/07/2013 10:56:00 05/07/2013 23:59:59 CLS Outpatient SOPHIA RANDALL APRN [id number] 03/18/2013 14:47:00 03/18/2013 23:59:59 CLS Outpatient FARZANEH YEAGER DO [id number] 08/31/2012 10:56:00 08/31/2012 23:59:59 CLS Outpatient NATTY SMITH APRN [id number] 06/16/2012 08:47:00 06/16/2012 23:59:59 CLS Outpatient FARZANEH YEAGER DO [id number] 10/29/2012 11:04:00 Document Registration [id number] 11/13/2016 14:18:00 11/13/2016 16:45:00 DIS Emergency GERONIMO GIFFORD MD Via [facility] ER BLOOD PANEL NEEDED POSS HEART ATTACK IN LAST WEEK [id number] 07/24/2016 15:11:00 07/25/2016 11:47:00 DIS Inpatient RAUL CARDOZA MD Via [address] DRUG WITHDRAWL [id number] 07/24/2016 15:01:00 07/24/2016 15:01:00 CAN Preadmit GERONIMO GIFFORD MD [facility] ER MENTAL HEALTH [id number] 11/14/2014 13:25:00 11/15/2014 11:25:00 DIS Inpatient EUGENIA ESTRADA MD [facility] 4TH COLITIS;INTRACTABLE NAUSEA AND VOMITING [id number] 06/19/2014 12:05:00 06/19/2014 23:59:59 CLS Outpatient SAMEERA PLUNKETT [facility] CARD CP,CAD,HLP [id number] 09/18/2013 01:32:00 09/18/2013 03:34:00 DIS Emergency SANDY GLORIA DO [facility] ER AMS [id number] 03/17/2013 11:47:00 03/17/2013 23:59:59 CLS Outpatient [id number] 02/22/2013 07:05:00 02/22/2013 14:34:00 DIS Outpatient MARÍA OLEA FACC, ANISA SANDOVAL CCDS [facility] CATH CAD,SOB, FATIGUE,ANGINA [id number] 02/14/2013 10:26:00 02/14/2013 23:59:59 CLS Outpatient SAMEERA PLUNKETT [facility] LAB CAD,HTN,HLP,STATIN [place] [id number] 07/07/2012 09:41:00 Document Registration [id number] 05/28/2012 12:45:00 Document Registration
[2017-08-10] MEDS ORDERED: EPTIFIBATIDE DRIP 100 ML IV ONE (14:00)
[2017-08-10] MEDS ORDERED: PATIENT MAY USE OWN MEDS, ALL PO SCH (14:15)
--- NOTE | 2017-08-10 14:19 | History & Physicial-Cardiolgy ---
HPI-Cardiology Cardiology Consultation: Date of Consultation 08/10/17 Date of Admission Attending Physician Luis Manuel Pollack MD Admitting Physician [place] Consulting Physician Luis Manuel POLLACK MD HPI: Time Seen by Provider: 12:45 Chief Complaint: Chest pain This is a 47-year-old gentleman who has previous history of CAD with stent in OM1 in May 2012. A Promus 3.0x20mm ANTONIA was placed by Dr Jackson in 05/2012. Dr Zambraon did coronary angiography in 02/2013 for exertional chest pain which did not reveal any significant CAD. Patient has been non-compliant with medications. He has been chest pain x 3 weeks. However, he has been having severe chest pain x 48 hours. Today he started having severe chest pain since at 7am. Intensity 11 out 10. Substernal. No response. No other cardiac symptoms. Review of Systems-Cardiology Review of Systems Constitutional: No As described under HPI, No no symptoms reported, No chills, No fever, No lightheadedness, No malaise, No tiredness, No weight loss, No weight gain, No other Eyes: No As described under HPI, No no symptoms reported, No blindness, No blurred vision, No contact lenses, No drainage, No decreased acuity, No foreign body sensation, No glasses, No inflammation, No pain, No photophobia, No previous injury, No shadows, No tunnel vision, No other, No vision change Ears/Nose/Throat: No As described under HPI, No no symptoms reported, No chronic hearing loss, No epistaxis, No ear discharge, No ear pain, No loose teeth, No mouth pain, No mouth swelling, No nasal drainage, No nose pain, No recent hearing loss, No throat pain, No throat swelling, No ulcerations, No other Respiratory: No no symptoms reported, No As described under HPI, No cough, No orthopnea, No shortness of breath, No SOB with excertion, No SOB at rest, No stridor, No wheezing, No other Cardiovascular: chest pain Gastrointestinal: No no symptoms reported, No As described under HPI, No abdomen distended, No abdominal pain, No blood streaked bowels, No constipation , No diarrhea, No difficulty swallowing, No nausea, No poor appetite, No poor fluid intake, No rectal bleeding, No vomiting, No other, No nausea/vomiting/ diarrhea, No stool coloration changes Genitourinary: No no symptoms reported, No As described under HPI, No burning, No dysuria, No discharge, No frequency, No flank pain, No hematuria, No incontinence, No pain, No urgency, No other, No urine frequency changes, No urine coloration changes Musculoskeletal: No no symptoms reported, No As describe under HPI, No back pain, No gout, No joint pain, No joint swelling, No muscle pain, No muscle stiffness, No neck pain, No other Skin: No no symptoms reported, No As described under HPI, No change in color, No change in hair/nails, No dryness, No lesions, No lumps, No rash, No other, No skin related problems, No ulcerations, No rash on exposed areas, No ulcerations on exposed areas Psychiatric/Neurological: No no symptoms reported, No As described under HPI, No anxiety, No depression, No emotional problems, No headache, No numbness, No pre-existing deficit, No seizure, No tingling, No tremors, No weakness, No other , No focal weakness, No syncope Hematologic: No no symptoms reported, No As described under HPI, No anemia, No blood clots, No easy bleeding, No easy bruising, No swollen glands, No other, No bleeding abnormalities [id number] Hx Patient Social History Type Used: Cigarettes Immunizations Up To Date Tetanus Booster (TDap): Unknown Past Medical History PMH As described under Assessment. Allergies and Home Medications Allergies Coded Allergies: No Known Drug Allergies (Unverified , 05/28/12) Home Medications Aspirin 81 Mg Tab.chew, 81 MG PO DAILY, (Reported) Atorvastatin Calcium 20 Mg Tablet, 20 MG PO DAILY, (Reported) Pantoprazole Sodium 40 Mg Tablet.dr, 40 MG PO DAILY, (Reported) Sucralfate 1 Gm Tablet, 1 GM PO ACHS, (Reported) Patient Home Medication List Home Medication List Reviewed: Yes Physical Exam-Cardiology Physical Exam Vital Signs/I&O Vital Sign - Last 12Hours 08/10/17 08/10/17 08/10/17 14:30 14:43 14:45 Pulse 80 82 81 Resp 21 18 B/P (MAP) 129/89 (102) 123/93 (103) Pulse Ox 97 98 O2 Delivery Room Air Room Air Capillary Refill : Constitutional: AAO x 3, apparent distress, well-developed HEENT: No PERRL, No normal ENT inspection, No TMs normal, No pharynx normal, No scleral icterus (R), No scleral icterus (L), No pale conjunctivae (R), No pale conjunctivae (L), No photophobia, No TM abnormal (R), No TM abnormal (L), No pharyngeal erythema, No tonsillar exudate, No other, No discharge, No EOMI, No hearing is well preserved, No hard of hearing, No oral hygience is good, No ulceration, No xanthelasmas are seen Neck: No non-tender, No full range of motion, No supple, No normal inspection, No carotid bruit, No limited range of motion, No lymphadenopathy (R), No lymphadenopathy (L), No tender lateral, No tender midline, No thyromegaly, No other, No carotid pulses are 2 + bilaterally, No with good upstrokes Respiratory: No accessory muscle use, No respiratory distress, No chest tender , No chest expansion is symmetric, chest is bilaterally symmetric, No lungs clear to percussion, lungs clear to auscultation, No crackles, No rhonchi, No rales, No stridor, No wheezing, No pleural rub, No other Cardiovascular: regular rate-rhythm, No irregularly irregular, No extra beats, No parasternal heave is noted, No JVD, No edema, No bradycardia, No tachycardia , No point of maximal impulse, No cardiac thrills are palpable, S1 and S2, No gallop/S3, No gallop/S4, No diastolic murmur, No systolic murmur, No friction rub, No click, No other Gastrointestinal: No tender, No soft, No round, No distended, No pulsatile mass , No organomegaly, No guarding, No rebound, No tenderness, No hernia, No mass, No audible bowel sounds, No abnormal bowel sounds, No abdominal bruits, No spleenomegaly, No other Rectal: deferred Extremities: No normal range of motion, No non-tender, No normal inspection, No pedal edema, No calf tenderness, No normal capillary refill, No pelvis stable , No calf tenderness, No inflammation, No pedal edema, No slow capillary refill , No swelling, No other, No abrasion, No clubbing, No cyanosis, No ecchymosis, No laceration, No no lower extremity edema bilateral, No significant edema, No tenderness, No wound Neurologic/Psychiatric: No automatic developer II-XII nml as tested, No no motor/sensory deficits, alert, normal mood/affect, oriented x 3, No abnormal cerebellar tests , No abnormal automatic developer II-XII, No abnormal gait, No aphasia, No EOM palsy, No facial droop, No motor weakness, No sensory deficit, No depressed affect, No disoriented x 3, No other, No grossly intact, No power is 5/5 both on sides Skin: No normal color, No warm/dry, No cyanosis, No cool, No diaphoresis, No damp, No ecchymosis, No jaundice, No mottled, No pallor, No rash, No tattoos/ piercings, No ulcerations, No rash on exposed areas, No ulcerations on exposed areas, No other Lymphatic: No no adenopathy, No axilla node tender (R), No axilla node tender ( L), No inguinal node tender (R), No inguinal node tender (L), No other Data Review Labs Laboratory Tests 08/10/17 15:20: White Blood Count 19.1H, Red Blood Count 4.75, Hemoglobin 14.8, Hematocrit 42, Mean Corpuscular Volume 89, Mean Corpuscular Hemoglobin 31, Mean Corpuscular Hemoglobin Concent 35, Red Cell Distribution Width 13.3, Platelet Count 290, Mean Platelet Volume 10.1, Neutrophils (%) (Auto) 87H, Lymphocytes (%) (Auto) 8L , Monocytes (%) (Auto) 5, Eosinophils (%) (Auto) 0, Basophils (%) (Auto) 0, Neutrophils # (Auto) 16.6H, Lymphocytes # (Auto) 1.4, Monocytes # (Auto) 0.9, Eosinophils # (Auto) 0.1, Basophils # (Auto) 0.1, Prothrombin Time 14.8H, INR Comment 1.2, Activated Partial Thromboplast Time 127*H, Sodium Level 132L, Potassium Level 3.9, Chloride Level 103, Carbon Dioxide Level 21, Anion Gap 8, Blood Urea Nitrogen 7, Creatinine 0.86, Estimat Glomerular Filtration Rate > 60 , BUN/Creatinine Ratio 8, Glucose Level 120H, Calcium Level 8.9, Magnesium Level 1.9, Total Bilirubin 0.7, Aspartate Amino Transf (AST/SGOT) 41H, Alanine Aminotransferase (ALT/SGPT) 29, Alkaline Phosphatase 117, Total Protein 7.4, Albumin 3.8 ECG Impression ECG Initial ECG Impression: Acute DE A/P-Cardiology Assessment/Admission Diagnosis STEMI, Cardiac Arrest, Leucocytosis Admission Status: Inpatient Order (span 2 midnights) Reason for Inpatient Admission: STEMI,s/p Cardiac arrest Plan Acute inferior STEMI with polymorphic VT/ventricular fibrillation. Treated in the emergency department with defibrillation which was successful. CPR less than 1 minute. Immediate normal mental status. EKG showed inferior ST elevation DE catheter lab activated. Plavix and aspirin bolus given. IV amiodarone given. Discussed cardiac catheterization with the patient and family and risk of and worsening DE discussed. Patient will be taken emergently for coronary angiography and primary PCI. Leukocytosis likely secondary to acute DE. Luis Manuel POLLACK MD Aug 10, 2017 2:19 pm
--- NOTE | 2017-08-10 14:20 | Coronary Angiography & PCI ---
Coronary Angiography & PCI DATE OF PROCEDURE: 08/10/17 INDICATION: Acute inferior STEMI, cardiac arrest PREOPERATIVE DIAGNOSIS: Acute inferior STEMI, cardiac arrest POSTOPERATIVE DIAGNOSIS: Successful primary PCI of OM1. HISTORY: 47-year-old gentleman with previous history of PCI to OM1 artery in May 2012 with repeat coronary angiography in February 2013 which did not reveal any significant CAD. Patient is non-compliant with medications. Recurrent chest pain for the last 3 weeks however severe chest pain episodes in the last 48 hours. This morning severe chest pain started at 7 a.m. patient presented to the ER and had in-hospital cardiac arrest with ventricular fibrillation which was promptly defibrillated with successful return of circulation. EKG showed inferior STEMI. Therefore, the patient was scheduled for emergent coronary angiography. PROCEDURES PERFORMED: 1.Coronary angiography. 2.Left heart catheterization. 3.PCI to the OM 1. 4. Aortic root injection. 5. Aortic arch angiography. COMPLICATIONS: None. SPECIMENS: None. ESTIMATED BLOOD LOSS: 10 mL ANESTHESIA: Conscious sedation ANTICOAGULATION: IV heparin, IV Integrilin. CONTRAST: 175 mL. FLUOROSCOPY: 12.8 minutes. FLOUROSCOPY DOSE: 1025 mgy. PROCEDURE DETAILS: The patient is a 47 male and was brought to the chemical laboratory assistant after informed consent was taken. All the risks and complications were explained in detail; this included the risk of bleeding, vascular damage, stroke , IN and even . The patient was draped and prepped in the usual sterile fashion. Access was gained in the right femoral artery with a 6 Filipino sheath. We used the following catheters 6 Filipino JR4 guide catheter, JR4 diagnostic catheter, AL1 catheter, MP catheter, JL4 diagnostic catheter, EBU 4 guide catheter. C, Primary PCI to OM, Aortic root injection, Aortic arch angiography , coronary angiography. Nonselective angiogram of the RCA due to difficult engagement. FINDINGS: 1.Left main: patent. 2.LAD: Mild disease. Transapical artery. 3.Left circumflex artery: Occluded OM1, likely within a stent (which is not very easily visualized). 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 Non-dominant, Pulsating mid segment - spasm vs. stenotic lesion vs. external pressure. 5.Left heart catheterization: Aortic pressure 180/118 mmHg, LV pressure 177/14 mmHg. LVEDP 34 mmHg. No gradient across the aortic valve. Preserved LV function with no wall motion abnormality on KILLIAN view only. 6. Aortic root injection: No significant left main disease and anomalous origin of RCA noted. No significant aortic regurgitation. 7. Aortic arch angiography: No aneurysm or dissection noted. Normal great vessels including brachiocephalic artery, left carotid artery, left subclavian artery. RECOMMENDATIONS: Primary PCI to OM1 recommended. INTERVENTION DETAILS: Since EKG showed inferior ST elevation we started off with a JR4 guide catheter , however we quickly realized that RCA was not the culprit vessel. We then used a diagnostic JL4 to engage left coronary system and observed total occlusion of OM1 artery. We then quickly changed to an EBU guide catheter. The lesion was crossed with a whisper wire. The patient was given Plavix 300 mg bolus in the ER and we repeated another 300 mg in the pathology laboratory director. IV heparin was given and ACT was 280 seconds. Significant thrombus burden was also noted therefore Integrilin was also given. The lesion was treated initially with a 2.0 balloon and flow was reestablished. Door to balloon time was 39 minutes. The lesion was treated with the Xience Alpine 2.75X 23 stent. This was inflated to 16 marvel. Postdilatation with a 3.0 x 15mm NC Quantum stent which was dilated twice at 12 and 16 atmospheres with excellent results. NIKHIL III flow and no residual stenosis. Mynx closure of RFA. CONCLUSIONS: 1. Primary PCI to OM1. This could be a very late stent thrombosis. 2. Dual anti platelet therapy, statin, BB, BOB inhibitor, IV Integrilin. 3. 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 4. Echo. MVijay Pollack MD, FACP, FACC, [facility] Interventional Cardiology Luis Manuel POLLACK MD Aug 10, 2017 2:20 pm
[2017-08-10] MEDS: morphine INJ 4 MG/ML 1 ML (VIAL/SYRINGE) IVP PRN ×2 (15:31→19:50)
[2017-08-10] MEDS: EPTIFIBATIDE DRIP 100 ML IV SCH ×2 (15:34→22:11)
[2017-08-10] MEDS: NS IV 1000 ML 1,000 ML IV SCH ×2 (15:34→20:06)
[2017-08-10 15:46] LABS: BASOPHILS # (AUTO) 0.1 10^3/uL (0.0-0.1); BASOPHILS % (AUTO) 0 % (0-10); EOSINOPHILS # (AUTO) 0.1 10^3/uL (0.0-0.3); EOSINOPHILS % (AUTO) 0 % (0-10); HEMATOCRIT 42 % (40-54); HEMOGLOBIN 14.8 G/DL (13.3-17.7); LYMPHOCYTES # (AUTO) 1.4 X 10^3 (1.0-4.0); LYMPHOCYTES % (AUTO) 8 % (12-44); MEAN CORPUSCULAR HEMOGLOBIN 31 PG (25-34); MEAN CORPUSCULAR HGB CONC 35 G/DL (32-36); MEAN CORPUSCULAR VOLUME 89 FL (80-99); MEAN PLATELET VOLUME 10.1 FL (7.4-10.4); MONOCYTES # (AUTO) 0.9 X 10^3 (0.0-1.0); MONOCYTES % (AUTO) 5 % (0-12); NEUTROPHILS # (AUTO) 16.6 X 10^3 (1.8-7.8); NEUTROPHILS % (AUTO) 87 % (42-75); PLATELET COUNT 290 10^3/uL (130-400); RED BLOOD COUNT 4.75 10^6/uL (4.35-5.85); RED CELL DISTRIBUTION WIDTH 13.3 % (10.0-14.5); WHITE BLOOD COUNT 19.1 10^3/uL (4.3-11.0)
[2017-08-10] MEDS ORDERED: PANT40TA2 PO (16:08)
[2017-08-10] MEDS ORDERED: ATOR20TA49 PO (16:08)
[2017-08-10] MEDS ORDERED: SUCR1TAB36 PO (16:08)
[2017-08-10] MEDS ORDERED: ASPI-999 PO (16:08)
[2017-08-10 16:10] LABS: INR 1.2 (0.8-1.4); PROTHROMBIN TIME PATIENT 14.8 SEC (12.2-14.7)
[2017-08-10 16:32] LABS: ALANINE AMINOTRANSFERASE 29 U/L (0-55); ALBUMIN 3.8 GM/DL (3.2-4.5); ALKALINE PHOSPHATASE 117 U/L (40-136); BILIRUBIN,TOTAL 0.7 MG/DL (0.1-1.0); BUN/CREATININE RATIO 8; CALCIUM 8.9 MG/DL (8.5-10.1); CARBON DIOXIDE 21 MMOL/L (21-32); CHLORIDE 103 MMOL/L (98-107); CREATININE SERUM 0.86 MG/DL (0.60-1.30); GFR ESTIMATED > 60; GLUCOSE 120 MG/DL (70-105); MAGNESIUM 1.9 MG/DL (1.8-2.4); POTASSIUM 3.9 MMOL/L (3.6-5.0); SODIUM 132 MMOL/L (135-145); TOTAL PROTEIN 7.4 GM/DL (6.4-8.2)
[2017-08-10 16:38] LABS: MYOGLOBIN SERUM 543.3 NG/ML (10.0-92.0)
[2017-08-10 16:56] LABS: BAND NEUTROPHILS 1 %; BASOPHILS % (MANUAL) 0 %; EOSINOPHILS % (MANUAL) 0 %; LYMPHOCYTES % (MANUAL) 9 %; MONOCYTES % (MANUAL) 4 %; NEUTROPHILS % (MANUAL) 86 %; RBC MORPH NORMAL
[2017-08-10] MEDS ORDERED: INFLUENZA TRIvalent 2017-2018 0.5 ML/45 MCG SYR IM ONE (18:00)
[2017-08-10] MEDS ORDERED: hydrALAZINE (APESOLINE) 20 MG/ML VIAL IV PRN (19:45)
[2017-08-10] MEDS ORDERED: morphine INJ 4 MG/ML 1 ML (VIAL/SYRINGE) IVP PRN (19:45)
[2017-08-10] MEDS: meTOprolol TARTRATE 50 MG (LOPRESSOR) TAB PO SCH (20:14)
[2017-08-10] MEDS: ATORVASTATIN 80 MG (LIPITOR) TABLET PO SCH (20:14)
[2017-08-10] MEDS: inSUlin (REGULAR) HUMAN 1 UNIT/0.01 ML (CHARGE PER UNIT) SC SCH (20:14)
[2017-08-11] VITALS (19 sets, daily range): BP systolic 102–139; BP diastolic 63–93
[2017-08-11] MEDS ORDERED: ONDANSETRON 4 MG/2 ML (SDV) Z0FRAN IVP PRN
[2017-08-11 03:10] LABS: BASOPHILS # (AUTO) 0.1 10^3/uL (0.0-0.1); BASOPHILS % (AUTO) 0 % (0-10); EOSINOPHILS # (AUTO) 0.1 10^3/uL (0.0-0.3); EOSINOPHILS % (AUTO) 1 % (0-10); HEMATOCRIT 41 % (40-54); HEMOGLOBIN 14.2 G/DL (13.3-17.7); LYMPHOCYTES # (AUTO) 1.9 X 10^3 (1.0-4.0); LYMPHOCYTES % (AUTO) 13 % (12-44); MEAN CORPUSCULAR HEMOGLOBIN 31 PG (25-34); MEAN CORPUSCULAR HGB CONC 35 G/DL (32-36); MEAN CORPUSCULAR VOLUME 90 FL (80-99); MONOCYTES % (AUTO) 7 % (0-12); NEUTROPHILS # (AUTO) 11.1 X 10^3 (1.8-7.8); NEUTROPHILS % (AUTO) 78 % (42-75); PLATELET COUNT 300 10^3/uL (130-400); RED BLOOD COUNT 4.59 10^6/uL (4.35-5.85); RED CELL DISTRIBUTION WIDTH 13.4 % (10.0-14.5); WHITE BLOOD COUNT 14.1 10^3/uL (4.3-11.0)
[2017-08-11 03:40] LABS: BUN/CREATININE RATIO 6; CALCIUM 9.1 MG/DL (8.5-10.1); CARBON DIOXIDE 21 MMOL/L (21-32); CHLORIDE 107 MMOL/L (98-107); CHOLESTEROL 199 MG/DL (< 200); CREATININE SERUM 0.86 MG/DL (0.60-1.30); GFR ESTIMATED > 60; GLUCOSE 156 MG/DL (70-105); HDL CHOLESTEROL 23 MG/DL (40-60); MAGNESIUM 1.9 MG/DL (1.8-2.4); PHOSPHORUS 2.7 MG/DL (2.3-4.7); POTASSIUM 3.8 MMOL/L (3.6-5.0); SODIUM 136 MMOL/L (135-145); TRIGLYCERIDES 114 MG/DL (<150); VLDL CHOLESTEROL 23 MG/DL (5-40)
[2017-08-11] MEDS: HYDROcodone/APAP 5 MG/325 MG (LORTAB) TAB PO PRN ×2 (03:50→22:57)
[2017-08-11] MEDS: NS IV 1000 ML 1,000 ML IV SCH ×2 (05:26→16:10)
[2017-08-11] MEDS: inSUlin (REGULAR) HUMAN 1 UNIT/0.01 ML (CHARGE PER UNIT) SC SCH ×4 (05:28→20:54)
[2017-08-11] MEDS ORDERED: KCL 20 MEQ TAB (K-DUR) PO SCH (06:00)
[2017-08-11] MEDS ORDERED: MAGNESIUM 1 GM/100 ML IVPB 100 ML IV SCH (06:00)
[2017-08-11] MEDS ORDERED: POTASSIUM CL 10MEQ/50ML IVPB 50 ML IV SCH (06:00)
[2017-08-11] MEDS: EPTIFIBATIDE DRIP 100 ML IV SCH (07:00)
[2017-08-11] MEDS: lisINopril 20 MG (PRINIVIL) TABLET PO SCH (08:27)
[2017-08-11] MEDS: meTOprolol TARTRATE 50 MG (LOPRESSOR) TAB PO SCH ×2 (08:27→20:50)
[2017-08-11] MEDS: ASPIRIN E.C. 81 MG (ECOTRIN) TAB PO SCH (08:27)
[2017-08-11] MEDS: CLOPIDOGREL 75 MG (PLAVIX) TABLET PO SCH (08:27)
--- NOTE | 2017-08-11 09:41 | Cardiology Progress Note ---
Cardiology SOAP Progress Note Subjective: noncardiac chest pain likely either due to CPR or pericarditis. Chest pain with breathing. Objective: I&O/Vital Signs Vital Sign - Last 12Hours 08/10/17 08/11/17 08/11/17 08/11/17 23:30 00:00 01:00 01:00 Temp 98.2 Pulse 80 91 91 Resp 22 19 B/P (MAP) 131/75 (93) 121/83 (96) Pulse Ox 98 99 96 O2 Delivery Room Air Room Air Room Air 08/11/17 08/11/17 08/11/17 08/11/17 02:00 03:00 03:30 04:00 Temp 99.2 Pulse 89 95 77 Resp 12 B/P (MAP) 117/81 (93) 123/91 (102) 125/91 (102) Pulse Ox 96 96 98 98 O2 Delivery Room Air Room Air Room Air Room Air 08/11/17 08/11/17 08/11/17 08/11/17 05:00 06:00 07:00 07:00 Pulse 79 82 96 95 Resp 17 19 18 B/P (MAP) 112/75 (87) 117/82 (94) 121/75 (90) Pulse Ox 94 97 98 O2 Delivery Room Air Room Air Room Air 08/11/17 08/11/17 08/11/17 08:27 08:30 09:00 Temp 98.0 Pulse 81 80 Resp 12 18 B/P (MAP) 122/83 (96) 118/82 (94) Pulse Ox 98 97 O2 Delivery Room Air Room Air Room Air Intake and Output 08/11/17 00:00 Intake Total 1600 ml Output Total 1150 ml Balance 450 ml Weight (Pounds): 161 Weight (Ounces): 2.6 Weight (Calculated Kilograms): 73.418171 Constitutional: AAO x 3, well-developed Respiratory: No accessory muscle use, No respiratory distress, No chest tender , No chest expansion is symmetric, chest is bilaterally symmetric, No lungs clear to percussion, lungs clear to auscultation, No crackles, No rhonchi, No rales, No stridor, No wheezing, No pleural rub, No other Cardiovascular: regular rate-rhythm, No irregularly irregular, No extra beats, No parasternal heave is noted, No JVD, No edema, No bradycardia, No tachycardia , No point of maximal impulse, No cardiac thrills are palpable, S1 and S2, No gallop/S3, No gallop/S4, No diastolic murmur, No systolic murmur, No friction rub, No click, No other Gastrointestional: No tender, No soft, No round, No distended, No pulsatile mass, No organomegaly, No guarding, No rebound, No tenderness, No hernia, No mass, No audible bowel sounds, No abnormal bowel sounds, No abdominal bruits, No spleenomegaly, No other Extremities: No normal range of motion, No non-tender, No normal inspection, No pedal edema, No calf tenderness, No normal capillary refill, No pelvis stable , No calf tenderness, No inflammation, No pedal edema, No slow capillary refill , No swelling, No other, No abrasion, No clubbing, No cyanosis, No ecchymosis, No laceration, No no lower extremity edema bilateral, No significant edema, No tenderness, No wound Neurologic/Psychiatric: No mechanical engineering director II-XII nml as tested, No no motor/sensory deficits, alert, normal mood/affect, oriented x 3, No abnormal cerebellar tests , No abnormal mechanical engineering director II-XII, No abnormal gait, No aphasia, No EOM palsy, No facial droop, No motor weakness, No sensory deficit, No depressed affect, No disoriented x 3, No other, No grossly intact, No power is 5/5 both on sides Skin: No normal color, No warm/dry, No cyanosis, No cool, No diaphoresis, No damp, No ecchymosis, No jaundice, No mottled, No pallor, No rash, No tattoos/ piercings, No ulcerations, No rash on exposed areas, No ulcerations on exposed areas, No other Results/Procedures: Labs Laboratory Tests 08/10/17 15:20: White Blood Count 19.1H, Red Blood Count 4.75, Hemoglobin 14.8, Hematocrit 42, Mean Corpuscular Volume 89, Mean Corpuscular Hemoglobin 31, Mean Corpuscular Hemoglobin Concent 35, Red Cell Distribution Width 13.3, Platelet Count 290, Mean Platelet Volume 10.1, Neutrophils (%) (Auto) 87H, Lymphocytes (%) (Auto) 8L , Monocytes (%) (Auto) 5, Eosinophils (%) (Auto) 0, Basophils (%) (Auto) 0, Neutrophils # (Auto) 16.6H, Lymphocytes # (Auto) 1.4, Monocytes # (Auto) 0.9, Eosinophils # (Auto) 0.1, Basophils # (Auto) 0.1, Neutrophils % (Manual) 86, Lymphocytes % (Manual) 9, Monocytes % (Manual) 4, Eosinophils % (Manual) 0, Basophils % (Manual) 0, Band Neutrophils 1, Blood Morphology Comment NORMAL, Prothrombin Time 14.8H, INR Comment 1.2, Activated Partial Thromboplast Time 127 *H, Sodium Level 132L, Potassium Level 3.9, Chloride Level 103, Carbon Dioxide Level 21, Anion Gap 8, Blood Urea Nitrogen 7, Creatinine 0.86, Estimat Glomerular Filtration Rate > 60, BUN/Creatinine Ratio 8, Glucose Level 120H, Calcium Level 8.9, Magnesium Level 1.9, Total Bilirubin 0.7, Aspartate Amino Transf (AST/SGOT) 41H, Alanine Aminotransferase (ALT/SGPT) 29, Alkaline Phosphatase 117, Myoglobin 543.3H, Troponin I 3.64*H, Total Protein 7.4, Albumin 3.8, Serum Alcohol < 10 08/10/17 20:13: Glucometer 108 08/10/17 21:10: Troponin I 18.14*H 08/11/17 03:00: White Blood Count 14.1H, Red Blood Count 4.59, Hemoglobin 14.2, Hematocrit 41, Mean Corpuscular Volume 90, Mean Corpuscular Hemoglobin 31, Mean Corpuscular Hemoglobin Concent 35, Red Cell Distribution Width 13.4, Platelet Count 300, Mean Platelet Volume 10.0, Neutrophils (%) (Auto) 78H, Lymphocytes (%) (Auto) 13 , Monocytes (%) (Auto) 7, Eosinophils (%) (Auto) 1, Basophils (%) (Auto) 0, Neutrophils # (Auto) 11.1H, Lymphocytes # (Auto) 1.9, Monocytes # (Auto) 1.0, Eosinophils # (Auto) 0.1, Basophils # (Auto) 0.1, Sodium Level 136, Potassium Level 3.8, Chloride Level 107, Carbon Dioxide Level 21, Anion Gap 8, Blood Urea Nitrogen 5L, Creatinine 0.86, Estimat Glomerular Filtration Rate > 60, BUN/ Creatinine Ratio 6, Glucose Level 156H, Calcium Level 9.1, Magnesium Level 1.9, Troponin I 15.43*H, Phosphorus Level 2.7, Triglycerides Level 114, Cholesterol Level 199, LDL Cholesterol Direct 161H, VLDL Cholesterol 23, HDL Cholesterol 23L 08/11/17 05:28: Glucometer 140H A/P: Assessment/Dx: STEMI,status post primary PCI to OM 1 artery. Cardiac Arrest, Leucocytosis, active smoking, Hypertension, Hyperlipidemia. Plan: Acute inferior STEMI with polymorphic VT/ventricular fibrillation. Treated in the emergency department with defibrillation which was successful. CPR less than 1 minute. Immediate normal mental status. EKG showed inferior ST elevation PA catheter lab activated. Plavix and aspirin bolus given. IV amiodarone given. primary PCI to OM1 artery with Xience Alpine ANTONIA [id number]. Stent was dilated with a 3.0 noncompliant balloon. Integrilin overnight. continue dual antiplatelet therapy long-term. review echocardiogram. Dyslipidemia: High-dose statin. Active smoking: Strongly recommended to quit. Hypertension: On lisinopril and beta alissa. Leukocytosis likely secondary to acute PA. Discussed at length with the patient and family about lifestyle changes as well as medicine compliance. Thank you for your consultation. Please call me if you have any questions. Jigna Pollack MD, FACP, FACC, FSCAI, FHRS, CCDS Interventional Cardiology Cardiac Electrophysiology Vascular Medicine and Endovascular Interventions Luis Manuel POLLACK MD Aug 11, 2017 9:41 am
[2017-08-11] MEDS: ATORVASTATIN 80 MG (LIPITOR) TABLET PO SCH (20:50)
[2017-08-12 04:00] VITALS: BP 125/96
[2017-08-12 08:00] VITALS: BP 131/57
[2017-08-12] MEDS: meTOprolol TARTRATE 50 MG (LOPRESSOR) TAB PO SCH (09:55)
[2017-08-12] MEDS: ASPIRIN E.C. 81 MG (ECOTRIN) TAB PO SCH (09:55)
[2017-08-12] MEDS: CLOPIDOGREL 75 MG (PLAVIX) TABLET PO SCH (09:55)
[2017-08-12] MEDS: lisINopril 20 MG (PRINIVIL) TABLET PO SCH (09:55)
[2017-08-12 10:33] LABS: ALANINE AMINOTRANSFERASE 25 U/L (0-55); ALBUMIN 3.9 GM/DL (3.2-4.5); ALKALINE PHOSPHATASE 109 U/L (40-136); BILIRUBIN,TOTAL 0.8 MG/DL (0.1-1.0); BUN/CREATININE RATIO 7; CALCIUM 9.4 MG/DL (8.5-10.1); CARBON DIOXIDE 27 MMOL/L (21-32); CHLORIDE 103 MMOL/L (98-107); CREATININE SERUM 0.85 MG/DL (0.60-1.30); GFR ESTIMATED > 60; GLUCOSE 110 MG/DL (70-105); POTASSIUM 3.8 MMOL/L (3.6-5.0); SODIUM 137 MMOL/L (135-145); TOTAL PROTEIN 7.6 GM/DL (6.4-8.2)
--- NOTE | 2017-08-12 11:59 | Cardiology Progress Note ---
Cardiology SOAP Progress Note Subjective: No further chest pain. Objective: I&O/Vital Signs Vital Sign - Last 12Hours 08/12/17 08/12/17 08/12/17 08/12/17 01:00 04:00 07:00 08:00 Temp 98.1 Pulse 71 74 73 84 Resp 20 B/P (MAP) 125/96 (106) 131/57 (81) Pulse Ox 95 O2 Delivery Room Air Room Air 08/12/17 08/12/17 08:00 08:00 Temp 98.4 Resp 16 Pulse Ox 96 O2 Delivery Room Air Intake and Output 08/12/17 00:00 Intake Total 1497 ml Output Total 0 ml Balance 1497 ml Weight (Pounds): 160 Weight (Ounces): 7.0 Weight (Calculated Kilograms): 72.837833 Constitutional: AAO x 3, well-developed Respiratory: No accessory muscle use, No respiratory distress, No chest tender , No chest expansion is symmetric, chest is bilaterally symmetric, No lungs clear to percussion, lungs clear to auscultation, No crackles, No rhonchi, No rales, No stridor, No wheezing, No pleural rub, No other Cardiovascular: regular rate-rhythm, No irregularly irregular, No extra beats, No parasternal heave is noted, No JVD, No edema, No bradycardia, No tachycardia , No point of maximal impulse, No cardiac thrills are palpable, S1 and S2, No gallop/S3, No gallop/S4, No diastolic murmur, No systolic murmur, No friction rub, No click, No other Gastrointestional: No tender, No soft, No round, No distended, No pulsatile mass, No organomegaly, No guarding, No rebound, No tenderness, No hernia, No mass, No audible bowel sounds, No abnormal bowel sounds, No abdominal bruits, No spleenomegaly, No other Extremities: No normal range of motion, No non-tender, No normal inspection, No pedal edema, No calf tenderness, No normal capillary refill, No pelvis stable , No calf tenderness, No inflammation, No pedal edema, No slow capillary refill , No swelling, No other, No abrasion, No clubbing, No cyanosis, No ecchymosis, No laceration, No no lower extremity edema bilateral, No significant edema, No tenderness, No wound Neurologic/Psychiatric: No broommaking supervisor II-XII nml as tested, No no motor/sensory deficits, alert, normal mood/affect, oriented x 3, No abnormal cerebellar tests , No abnormal broommaking supervisor II-XII, No abnormal gait, No aphasia, No EOM palsy, No facial droop, No motor weakness, No sensory deficit, No depressed affect, No disoriented x 3, No other, No grossly intact, No power is 5/5 both on sides Skin: No normal color, No warm/dry, No cyanosis, No cool, No diaphoresis, No damp, No ecchymosis, No jaundice, No mottled, No pallor, No rash, No tattoos/ piercings, No ulcerations, No rash on exposed areas, No ulcerations on exposed areas, No other Results/Procedures: Labs Laboratory Tests 08/11/17 15:20: Glucometer 96 08/11/17 20:54: Glucometer 116H 08/12/17 10:02: Sodium Level 137, Potassium Level 3.8, Chloride Level 103, Carbon Dioxide Level 27, Anion Gap 7, Blood Urea Nitrogen 6L, Creatinine 0.85, Estimat Glomerular Filtration Rate > 60, BUN/Creatinine Ratio 7, Glucose Level 110H, Calcium Level 9.4, Total Bilirubin 0.8, Aspartate Amino Transf (AST/SGOT) 39H, Alanine Aminotransferase (ALT/SGPT) 25, Alkaline Phosphatase 109, Troponin I 5.13*H, Total Protein 7.6, Albumin 3.9 Microbiology 08/10/17 MRSA Screen - Final, Complete MRSA not isolated A/P: Assessment/Dx: STEMI,status post primary PCI to OM 1 artery. Cardiac Arrest, Leucocytosis, active smoking, Hypertension, Hyperlipidemia. Anomalous RCA. Plan: Acute inferior STEMI with polymorphic VT/ventricular fibrillation. Treated in the emergency department with defibrillation which was successful. CPR less than 1 minute. Immediate normal mental status. EKG showed inferior ST elevation VT catheter lab activated. Plavix and aspirin bolus given. IV amiodarone given. primary PCI to OM1 artery with Xience Alpine ANTONIA [id number]. Stent was dilated with a 3.0 noncompliant balloon. Integrilin overnight. continue dual antiplatelet therapy long-term. Echocardiogram showed normal LV function. Anomalous RCA: We'll perform a CT angiography of the chest to rule out malignant course of the RCA. Dyslipidemia: High-dose statin. Active smoking: Strongly recommended to quit. Hypertension: On lisinopril and beta alissa. Leukocytosis likely secondary to acute VT. Discussed at length with the patient and family about lifestyle changes as well as medicine compliance. Thank you for your consultation. Please call me if you have any questions. Jigna Pollack MD, FACP, FACC, FSCAI, FHRS, CCDS Interventional Cardiology Cardiac Electrophysiology Vascular Medicine and Endovascular Interventions Luis Manuel POLLACK MD Aug 12, 2017 11:59
[2017-08-12 12:00] VITALS: BP 128/76
[2017-08-12] MEDS ORDERED: IOHEXOL 350 MG/ML 150 ML (OMNIPAQUE 350) VIAL IV ONE (14:45)
[2017-08-12] MEDS ORDERED: NS 250 ML (IVPB) BAG IV ONE (14:45)
--- NOTE | 2017-08-12 15:40 | Diagnostic Imaging Report ---
PROCEDURE: CT angiography of the chest with contrast. TECHNIQUE: Axial imaging through the heart was performed after the administration of intravenous contrast and utilizing the CT angiography protocol. No reconstructions were performed. INDICATION: Abnormal recent cardiac catheter raising the question of an aberrant right coronary artery course. The study is performed for further evaluation. No prior studies are available for comparison. FINDINGS: There appears to be moderate dilatation of the main pulmonary artery. The visualized ascending and descending aorta appeared to be normal caliber. The arch was not included on this exam. The left main coronary artery arises from the left coronary cusp. There appears to be calcified plaque in the left anterior descending coronary artery. There appears to be plaque and a probable stent within the circumflex. The right coronary artery is small. The right coronary artery origin appears to arise from the left coronary cusp. The right coronary artery does demonstrate an interarterial course between the ascending aorta and pulmonary artery trunk, consistent with a malignant course. There is calcified plaque in the right coronary artery. Visualized lung altman are clear. No definite pericardial or pleural fluid is seen. IMPRESSION: 1. 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 The right coronary artery is small. Dr. Pollack was notified of these results prior to this dictation. Dictated by: Dictated on workstation # [id number]
[2017-08-12] MEDS ORDERED: ASPI-983 PO (16:37)
[2017-08-12] MEDS ORDERED: METO50TA15 PO (16:37)
[2017-08-12] MEDS ORDERED: CLOP75TA28 PO (16:37)
[2017-08-12] MEDS ORDERED: LISI-552 PO (16:37)
[2017-08-12] MEDS ORDERED: ATOR80TA76 PO (16:38)
[2017-08-12 16:50] VITALS: BP 131/91
--- NOTE | 2017-08-12 20:34 | Discharge Inst-Post CATH ---
Discharge Inst-CATH Post Cardiac Cath D/C Inst Follow Up/Plan Dr Pollack in one week CARDIAC CATH DISCHARGE INSTRUCTIONS *Hold Metformin for 48 hours post heart cath. ACTIVITY * Go Home directly and rest. * Limit activity of the leg (or wrist if it was used) for 7 days including aerobics, swimming, jogging, bicycling, etc. * Restrict stair-climbing for 7 days if possible, if not, climb up with your non -cath leg, then bring together on the same step. * Avoid lifting, pushing, pulling or excessive movement of the affected extremity for 7 days. * Customary sexual activity may be resumed after 2 days-use caution not to use a position that strains or causes pain to the affected extremity. * No driving for 24 hours. * NO SMOKING. * Avoid straining for bowel movements for 7 days. * Gentle walking on level ground is allowed. * Returning to work will depend on the type of procedure and the results. Your doctor will discuss this with you. CALL YOUR DOCTOR FOR ANY OF THE FOLLOWING: *If bleeding from the puncture site occurs- Apply gentle pressure to site with clean cloth and call your doctor or EMS. * If a knot or lump forms under the skin, increases in size, or causes pain. * If bruising appears to be worsening or moving further down your leg instead of disappearing. * Temperature above 101 F. CARE OF YOUR GROIN INCISION; * Bruising or purple discoloration of the skin near the puncture site is common. * You may shower only, no bathtub bathing for 5 days. Be careful to avoid slipping as your leg may feel stiff. * If a closure device was used on your femoral artery, please see the attached guide regarding care of the device and your leg. * REMOVE the dressing from your groin the next day after your procedure in the shower. CARE OF YOUR WRIST INCISION; * Bruising or purple discoloration of the skin near the puncture site is common. * You may shower. * DO NOT submerge wrist. * Remove dressing in 24 hours. Luis Manuel POLLACK MD Aug 12, 2017 20:34
--- NOTE | 2017-08-12 20:40 | Cardiology Discharge Summary ---
Diagnosis/Chief Complaint Date of Admission 08/10/2017 Date of Discharge 08/12/2017 Admission Diagnosis Inferior STEMI, ventricular fibrillation Final/Discharge Diagnosis Primary PCI to OM artery, Anomalous RCA with malignant course. Chief Complaint/HPI Chief Complaint/HPI This is a 47-year-old gentleman who has previous history of CAD with stent in OM1 in May 2012. A Promus 3.0x20mm ANTONIA was placed by Dr Jackson in 05/2012. Dr Zambrano did coronary angiography in 02/2013 for exertional chest pain which did not reveal any significant CAD. Patient has been non-compliant with medications. He has been chest pain x 3 weeks. However, he has been having severe chest pain x 48 hours. Today he started having severe chest pain since at 7am. Intensity 11 out 10. Substernal. No response. No other cardiac symptoms. Discharge Summary Procedures Coronary angiography showed occluded OM artery which was treated with primary PCI with drug-eluting stent. Anomalous RCA with malignant course confirmed by CT angiography. Discharge Physical Examination Unremarkable Hospital Course No further chest pain, stable groin. Stable cardiovascular examination. Radiology Reviewed CT angiography anomalous RCA with malignant course. Discussion & Recommendations Discussion I discussed at length with the patient and and recommended a hospital to hospital transfer for cardiac surgery consultation at [facility]. However the patient refused and was adamant to get discharged. All the risks were explained in detail. The patient still wanted to get discharged and follow up with cardiac surgery as an outpatient. He was strongly recommended to not exert. Detailed explanations given. Discharge took over 30 minutes to complete. Follow up appt.: Dr. Pollack in the next one week. Dicharge Diet: Cardiac Diet Activity as Tolerated: Yes Home Medications Reviewed patient Home Medication Reconciliation performed by pharmacy medication reconciliations clinical dietetic technician and/or nursing. Patients Allergies have been reviewed. Discharge Home Medications: Reviewed and agree with Discharge Medication list on patient's Discharge Instruction sheet Condition at discharge .stable Instructions to patient/family Dr Pollack in one week Clinical Quality Measures DVT/VTE Risk/Contraindication: Risk Factor Score Per Nursin RFS Level Per Nursing on Admit: 2=Moderate Luis Manuel POLLACK MD Aug 12, 2017 20:40
== END 2017-08-12 16:55 | disposition home or self-care (01) | DRG 246 ==
LOC: ER 12:49 → ICU 13:00 → CATH 13:00 → ICU 14:25 → CATH 14:25 → ICU 08-12 16:55 → CATH 08-12 16:55
PROVIDERS: ADMIT Internal Medicine Interventional Cardiology; ATTEND Internal Medicine Interventional Cardiology
PROC: 027034Z Dilation of Coronary Artery, One Artery with Drug-eluting Intraluminal Device, Percutaneous Approach (ICD-10-PCS; principal; 2017-08-10)
PROC: 4A023N7 Measurement of Cardiac Sampling and Pressure, Left Heart, Percutaneous Approach (ICD-10-PCS; 2017-08-10)
PROC: B2111ZZ Fluoroscopy of Multiple Coronary Arteries using Low Osmolar Contrast (ICD-10-PCS; 2017-08-10)
PROC: B3101ZZ Fluoroscopy of Thoracic Aorta using Low Osmolar Contrast (ICD-10-PCS; 2017-08-10)
PROC: B2151ZZ Fluoroscopy of Left Heart using Low Osmolar Contrast (ICD-10-PCS; 2017-08-10)
PROC: 3E03317 Introduction of Other Thrombolytic into Peripheral Vein, Percutaneous Approach (ICD-10-PCS; 2017-08-10)
DX: I21.19 ST elevation (STEMI) myocardial infarction involving other coronary artery of inferior wall (principal); I46.2 Cardiac arrest due to underlying cardiac condition; I49.01 Ventricular fibrillation; Q24.5 Malformation of coronary vessels; I25.10 Atherosclerotic heart disease of native coronary artery without angina pectoris; Z95.5 Presence of coronary angioplasty implant and graft; Z91.14 Patient's other noncompliance with medication regimen; F17.210 Nicotine dependence, cigarettes, uncomplicated; E78.00 Pure hypercholesterolemia, unspecified; I10 Essential (primary) hypertension; F41.9 Anxiety disorder, unspecified; F32.9 Major depressive disorder, single episode, unspecified; D72.829 Elevated white blood cell count, unspecified; E78.5 Hyperlipidemia, unspecified
CPT/HCPCS: 36415; 71275; 80053; 80320; 82962; 83735; 83874; 84484; 85007; 85027; 85610; 85730; 87081; 93005; 93041; 93306; 93458

== ENCOUNTER 2017-08-31 11:25 | Day surgery (SDC) | payer OTHER ==
[2017-08-31] VITALS (10 sets, daily range): BP systolic 111–131; BP diastolic 65–83
[~2017-08-31] VITALS: Ht 172.7 cm; Wt 72.8 kg
[~2017-08-31 11:25] MED LIST changes: +ASPI-983 PO; +ASPI-999 PO; +ATOR20TA49 PO; +ATOR80TA76 PO; +CLOP75TA28 PO; +LISI-552 PO; +METO50TA15 PO; +PANT40TA2 PO; +SUCR1TAB36 PO
[2017-08-31] MEDS ORDERED: NS IV 1000 ML 1,000 ML ONE (11:34)
[2017-08-31] MEDS ORDERED: HEParin (CATH LAB) 2,000 ML IV ONE (11:34)
[2017-08-31] MEDS ORDERED: NS IV 1000 ML 1,000 ML IV SCH ×2 (11:45→13:16)
[2017-08-31 12:03] LABS: HEMOGLOBIN 14.6 G/DL (13.3-17.7); RED BLOOD COUNT 4.75 10^6/uL (4.35-5.85); RED CELL DISTRIBUTION WIDTH 12.9 % (10.0-14.5); WHITE BLOOD COUNT 8.9 10^3/uL (4.3-11.0)
[2017-08-31] MEDS ORDERED: ATOR80TA76 PO (12:04)
[2017-08-31] MEDS ORDERED: METO50TA15 PO (12:04)
[2017-08-31] MEDS ORDERED: LISI-552 PO (12:04)
[2017-08-31] MEDS ORDERED: ASPI-983 PO (12:04)
[2017-08-31] MEDS ORDERED: CLOP75TA69 PO (12:04)
[2017-08-31 12:13] LABS: PROTHROMBIN TIME PATIENT 13.7 SEC (12.2-14.7)
[2017-08-31] MEDS ORDERED: LIDOCAINE 1% INJ 50 ML (XYLOCAINE) VIAL ONE (12:13)
[2017-08-31] MEDS ORDERED: fentaNYL INJECTION 100 MCG/2 ML AMP ONE (12:18)
[2017-08-31] MEDS ORDERED: MIDAZOLAM 5 MG/5 ML (VERSED) VIAL ONE (12:18)
[2017-08-31 12:25] LABS: ALANINE AMINOTRANSFERASE 11 U/L (0-55); ALBUMIN 3.8 GM/DL (3.2-4.5); ALKALINE PHOSPHATASE 130 U/L (40-136); BILIRUBIN,TOTAL 0.4 MG/DL (0.1-1.0); BUN/CREATININE RATIO 11; CALCIUM 9.5 MG/DL (8.5-10.1); CARBON DIOXIDE 25 MMOL/L (21-32); CHLORIDE 103 MMOL/L (98-107); CHOLESTEROL 126 MG/DL (< 200); CREATININE SERUM 0.92 MG/DL (0.60-1.30); GFR ESTIMATED > 60; GLUCOSE 97 MG/DL (70-105); HDL CHOLESTEROL 25 MG/DL (40-60); SODIUM 137 MMOL/L (135-145); TOTAL PROTEIN 8.6 GM/DL (6.4-8.2); TRIGLYCERIDES 119 MG/DL (<150); VLDL CHOLESTEROL 24 MG/DL (5-40)
--- NOTE | 2017-08-31 13:15 | Cardiac Procedure Note-CS/ASA ---
Pre-Procedure Note Pre-Op Procedure Note H&P Reviewed The H&P was reviewed, patient examined and no changes noted. Date H&P Reviewed: Aug 31, 2017 Time H&P Reviewed: 12:30 Conscious Sedation Pre-Proced Time Reviewed: 12:30 ASA Class: 3 Airway Mallampati Classification: ([place] appropriate class) I. II. III, IV Lungs Heart ASA score ASA 1: a normal healthy patient ASA 2: a patient with a mild systemic disease (mid diabetes, controlled hypertension, obesity ASA 3: a patient with a severe systemic disease that limits activity (angina , COPD, prior Myocardial infarction) ASA 4: a patient with an incapacitating disease that is a constant threat to life (CHF, renal failure) ASA 5: a moribund patient not expected to survive 24 hrs. (ruptured aneurysm) ASA 6: a declared brain patient whose organs are being harvested. For emergent operations, add the letter E after the classification Grade 1 Sedation Plan: Analgesia, Amnesia, Plan communicated to team members, Discussed options with patient/fam, Discussed risks with patient/fam Note The patient is an appropriate candidate to undergo the planned procedure, sedation, and anesthesia. The patient immediately re-assessed prior to indication. Luis Manuel JEFF MD Aug 31, 2017 1:15 pm
--- NOTE | 2017-08-31 13:24 | Coronary Angiography Report ---
Coronary Angiography Report DATE OF PROCEDURE: 08/31/17 INDICATION: recurrent chest pain with T-wave inversions, recent STEMI with PCI to OM1. PREOPERATIVE DIAGNOSIS: recurrent chest pain with T-wave inversions, recent STEMI with PCI to OM1. POSTOPERATIVE DIAGNOSIS: no obstructive CAD. Patent stent. HISTORY: this is a 47-year-old gentleman who presented with inferior STEMI and was found to have occluded OM1 treated with a drug-eluting stent few weeks ago. The site of the occlusion was a previously placed stent a few years ago. There was also an anomalous RCA with malignant course however it was nondominant and small vessel. CT angiography had confirmed malignant course of RCA between the PA and aorta. cardiac surgery consultation was taken and the patient was deemed not graftable and RCA are very unlikely cause of sudden cardiac risk in this patient. The patient presented for follow-up visit and was complaining of recurrent chest pain and EKG showed symmetrical T-wave inversions.Therefore, the patient was scheduled for coronary angiography. PROCEDURES PERFORMED: 1.Coronary angiography. 2.Left heart catheterization. 3. Aortic arch angiography COMPLICATIONS: None. SPECIMENS: None. ESTIMATED BLOOD LOSS: 10 mL ANESTHESIA: Conscious sedation ANTICOAGULATION: none CONTRAST: 75 mL. FLUOROSCOPY: 2.38 minutes. FLOUROSCOPY DOSE: 351 mgy. PROCEDURE DETAILS: The patient is a 47 male and was brought to the laundry laborer after informed consent was taken. All the risks and complications were explained in detail; this included the risk of bleeding, vascular damage, stroke , HI and even . The patient was draped and prepped in the usual sterile fashion. Watson's test was abnormal therefore access was gained in the right femoral artery with a 5 Icelandic sheath. Coronary angiography and left heart catheterization was performed with JR4 and JL4 catheter. Aortic arch angiogram was performed with a pigtail catheter. Known anomalous origin of the RCA; nonselective shots taken with a JR4 catheter. FINDINGS: 1.Left main: patent. 2.LAD: patent. Transapical vessel. 3.Left circumflex artery: patent stents in the OM artery. 4.RCA: nonselective views show no severe disease in the proximal segment. Small nondominant RCA. 5.Left heart catheterization: aortic pressure 86/55 mmHg. LV pressure 98/3 mmHg. LVEDP 10 mmHg. Normal LV function with no wall motion 90s. No gradient across the aortic valve. 6. Aortic arch angiogram: No aneurysm or dissection noted. Normal proximal segments of the great arteries including brachiocephalic artery, left common carotid artery and left subclavian artery. CONCLUSIONS: Patent stents with no severe CAD noted. Anomalous RCA which is nondominant and small. Jigna Pollack MD, FACP, FACC, [facility] Interventional Cardiology Luis Manuel POLLACK MD Aug 31, 2017 1:24 pm
--- NOTE | 2017-08-31 13:28 | Discharge Inst-Post CATH ---
Discharge Inst-CATH Post Cardiac Cath D/C Inst Follow Up/Plan Dr. Pollack in 3-4 weeks. CARDIAC CATH DISCHARGE INSTRUCTIONS *Hold Metformin for 48 hours post heart cath. ACTIVITY * Go Home directly and rest. * Limit activity of the leg (or wrist if it was used) for 7 days including aerobics, swimming, jogging, bicycling, etc. * Restrict stair-climbing for 7 days if possible, if not, climb up with your non -cath leg, then bring together on the same step. * Avoid lifting, pushing, pulling or excessive movement of the affected extremity for 7 days. * Customary sexual activity may be resumed after 2 days-use caution not to use a position that strains or causes pain to the affected extremity. * No driving for 24 hours. * NO SMOKING. * Avoid straining for bowel movements for 7 days. * Gentle walking on level ground is allowed. * Returning to work will depend on the type of procedure and the results. Your doctor will discuss this with you. CALL YOUR DOCTOR FOR ANY OF THE FOLLOWING: *If bleeding from the puncture site occurs- Apply gentle pressure to site with clean cloth and call your doctor or EMS. * If a knot or lump forms under the skin, increases in size, or causes pain. * If bruising appears to be worsening or moving further down your leg instead of disappearing. * Temperature above 101 F. CARE OF YOUR GROIN INCISION; * Bruising or purple discoloration of the skin near the puncture site is common. * You may shower only, no bathtub bathing for 5 days. Be careful to avoid slipping as your leg may feel stiff. * If a closure device was used on your femoral artery, please see the attached guide regarding care of the device and your leg. * REMOVE the dressing from your groin the next day after your procedure in the shower. CARE OF YOUR WRIST INCISION; * Bruising or purple discoloration of the skin near the puncture site is common. * You may shower. * DO NOT submerge wrist. * Remove dressing in 24 hours. Luis Manuel POLLACK MD Aug 31, 2017 1:27 pm
[2017-08-31] MEDS ORDERED: PATIENT MAY USE OWN MEDS, ALL PO SCH (13:30)
--- NOTE | 2017-08-31 13:31 | Cardiology Discharge Summary ---
Diagnosis/Chief Complaint Date of Admission 08/31/2017 Date of Discharge 08/31/2017 Admission Diagnosis recurrent chest pain with T-wave inversions, recent STEMI with PCI to OM1. Final/Discharge Diagnosis patent stent. No obstructive CAD Chief Complaint/HPI Chief Complaint/HPI this is a 47-year-old gentleman with history of recent STEMI with PCI to OM1 artery. The site of occlusion was at a previous OM one stent. Excellent results post PCI. Anomalous RCA with malignant course. The vessel was nondominant. Cardiac surgery consultation was done. Vessel is very small and not graftable. Very small risk of sudden cardiac from this RCA. Patient resented to an office visit with recurrent chest pain and T-wave inversions on EKG. Coronary angiography was recommended. Discharge Summary Procedures coronary angiography showed patent stent in OM1 artery. No obstructive CAD. Anomalous RCA. Discharge Physical Examination stable cardiovascular respiratory examination. Hospital Course unremarkable Pending Labs Laboratory Tests 08/31/17 11:56: White Blood Count 8.9, Red Blood Count 4.75, Hemoglobin 14.6, Hematocrit 43, Mean Corpuscular Volume 90, Mean Corpuscular Hemoglobin 31, Mean Corpuscular Hemoglobin Concent 34, Red Cell Distribution Width 12.9, Platelet Count 426, Mean Platelet Volume 10.0, Prothrombin Time 13.7, INR Comment 1.0, Activated Partial Thromboplast Time 31, Sodium Level 137, Potassium Level 4.0, Chloride Level 103, Carbon Dioxide Level 25, Anion Gap 9, Blood Urea Nitrogen 10, Creatinine 0.92, Estimat Glomerular Filtration Rate > 60, BUN/Creatinine Ratio 11, Glucose Level 97, Calcium Level 9.5, Total Bilirubin 0.4, Aspartate Amino Transf (AST/SGOT) 13, Alanine Aminotransferase (ALT/SGPT) 11, Alkaline Phosphatase 130, Total Protein 8.6, Albumin 3.8, Triglycerides Level 119, Cholesterol Level 126, LDL Cholesterol Direct 82, VLDL Cholesterol 24, HDL Cholesterol 25 Discussion & Recommendations Discussion discussed at length with patient and family. Continue dual antiplatelet therapy. Tobacco cessation. Follow up in office in 3-4 weeks. Follow up appt.: Dr. Pollack in 3-4 weeks. Dicharge Diet: Cardiac Diet Activity as Tolerated: Yes Home Medications Reviewed patient Home Medication Reconciliation performed by pharmacy medication reconciliations ammonia technician and/or nursing. Patients Allergies have been reviewed. Discharge Home Medications: Reviewed and agree with Discharge Medication list on patient's Discharge Instruction sheet Condition at discharge stable. Instructions to patient/family Dr. Pollack in 3-4 weeks. Luis Manuel POLLACK MD Aug 31, 2017 1:31 pm
== END 2017-08-31 16:30 | disposition home or self-care (01) ==
LOC: CATH 11:25 → SURG 13:29 → CATH 16:30
PROVIDERS: ATTEND Internal Medicine Interventional Cardiology
DX: R07.9 Chest pain, unspecified (principal); Z11.2 Encounter for screening for other bacterial diseases; I25.2 Old myocardial infarction; Z95.5 Presence of coronary angioplasty implant and graft; E78.5 Hyperlipidemia, unspecified; I10 Essential (primary) hypertension; E78.1 Pure hyperglyceridemia; F17.210 Nicotine dependence, cigarettes, uncomplicated
CPT/HCPCS: 36221; 36415; 80053; 80061; 85027; 85610; 85730; 87081; 93458

== ENCOUNTER 2017-12-10 21:51 | Observation (INO) | payer OTHER ==
[~2017-12-10] VITALS: Ht 172.7 cm; Wt 70.9 kg
[~2017-12-10 21:51] MED LIST changes: +CLOP75TA69 PO
[2017-12-10 22:01] LABS: BASOPHILS # (AUTO) 0.1 10^3/uL (0.0-0.1); BASOPHILS % (AUTO) 1 % (0-10); EOSINOPHILS # (AUTO) 0.4 10^3/uL (0.0-0.3); EOSINOPHILS % (AUTO) 4 % (0-10); HEMATOCRIT 43 % (40-54); HEMOGLOBIN 14.9 G/DL (13.3-17.7); LYMPHOCYTES # (AUTO) 3.2 X 10^3 (1.0-4.0); LYMPHOCYTES % (AUTO) 31 % (12-44); MEAN CORPUSCULAR HEMOGLOBIN 32 PG (25-34); MEAN CORPUSCULAR HGB CONC 35 G/DL (32-36); MEAN CORPUSCULAR VOLUME 91 FL (80-99); MEAN PLATELET VOLUME 10.2 FL (7.4-10.4); MONOCYTES % (AUTO) 9 % (0-12); NEUTROPHILS # (AUTO) 5.7 X 10^3 (1.8-7.8); NEUTROPHILS % (AUTO) 55 % (42-75); PLATELET COUNT 270 10^3/uL (130-400); RED BLOOD COUNT 4.73 10^6/uL (4.35-5.85); WHITE BLOOD COUNT 10.3 10^3/uL (4.3-11.0)
--- NOTE | 2017-12-10 22:01 | ED Chest Pain ---
General Chief Complaint: Chest Pain Stated Complaint: CP/BACK PAIN Source: patient, EMS Exam Limitations: no limitations (SHEKHAR VALDES APRN) History of Present Illness Date Seen by Provider: Dec 10, 2017 Time Seen by Provider: 21:57 Initial Comments tto ER with central chest pain and back pain since yesterday. He states "I had a little heart attack". He's taken 3 bottles of nitroglycerin sublingual since yesterday he states. He is taking these 6 at a time. He states that his heart doctor told him to take them as needed for chest pain. 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 He then came to and crawled from under the house and told his what had happened and "she said here take some nitro". he then states "I wasn't coming around like she thought I should so she gave him even more nitro". He is also had a couple of beers today. He was here in July for cardiac arrest and ventricular fibrillation taken to [facility]. He states he has not seen his heart doctor since he had a heart attack in July. Timing/Duration: 1-2 days Severity/Quality: moderate, aching Location: central Radiation: no radiation Activities at Onset: none ASA po CONVEYANCER: No NTG SL CONVEYANCER: No Associated Symptoms: No diaphoresis, No nausea/vomiting (SHEKHAR VALDES APRN) Allergies and Home Medications Allergies Coded Allergies: No Known Drug Allergies (Unverified , 05/28/12) Home Medications Aspirin 81 Mg Tablet.dr, 81 MG PO DAILY, (Reported) Atorvastatin Calcium 80 Mg Tablet, 80 MG PO HS, (Reported) Clopidogrel Bisulfate 75 Mg Tablet, 75 MG PO DAILY, (Reported) Lisinopril 20 Mg Tablet, 20 MG PO DAILY, (Reported) Metoprolol Tartrate 50 Mg Tablet, 50 MG PO BID, (Reported) Patient Home Medication List Home Medication List Reviewed: Yes (SHEKHAR VALDES APRN) Review of Systems Constitutional: see HPI EENTM: No Symptoms Reported Respiratory: No Symptoms Reported Cardiovascular: See HPI, Chest Pain, Syncope Gastrointestinal: See HPI Genitourinary: No Symptoms Reported Musculoskeletal: no symptoms reported Skin: no symptoms reported Psychiatric/Neurological: No Symptoms Reported Endocrine: No Symptoms Reported Hematologic/Lymphatic: No Symptoms Reported (SHEKHAR VALDES APRN) Past Ctczrbu-Yngjaz-Ozfhnb Hx Patient Social History Alcohol Beverage of Choice: Beer Type Used: Cigarettes Recent Hopitalizations: Yes (SHEKHAR VALDES APRN) Immunizations Up To Date Tetanus Booster (TDap): Unknown PED Vaccines UTD: No (SHEKHAR VALDES APRN) Past Medical History Surgeries: Yes (JAW FX REPAIR X2) Cardiac, Coronary Stent Respiratory: No Cardiac: Yes (STENT X 1 ) Coronary Artery Disease, Heart Attack, Heart Murmur, High Cholesterol, Hypertension Neurological: No Reproductive Disorders: No Sexually Transmitted Disease: No HIV/AIDS: No Genitourinary: Yes Kidney Stones Gastrointestinal: Yes (HX OF BLOOD IN STOOL) Musculoskeletal: Yes Arthritis, Chronic Back Pain Endocrine: No Loss of Vision: Denies Hearing Impairment: Denies Cancer: No Psychosocial: Yes (hAS NOT BEEN DX W/ MENTAL DISORDER ) Anxiety, Depression Integumentary: No Blood Disorders: No (SHEKHAR VALDES APRN) Family Medical History Unknown Physical Exam Vital Signs Vital Signs - First Documented (GERHARD KATZ) Vital Signs Capillary Refill : Less Than 3 Seconds (SHEKHAR VALDES APRN) Height, Weight, BMI Height: 5'8.00" Weight: 160lbs. 7.0oz. [id number]; 24.4 BMI Method:Estimated General Appearance: No Apparent Distress, WD/WN, Other (speech is slurred,) HEENT: PERRL/EOMI, TMs Normal Neck: Full Range of Motion, Normal Inspection Respiratory: Normal Breath Sounds, No Accessory Muscle Use, No Respiratory Distress Cardiovascular: Regular Rate, Rhythm, Normal Peripheral Pulses Gastrointestinal: Normal Bowel Sounds, Non Tender, Soft Extremity: Normal Capillary Refill, Normal Inspection Neurologic/Psychiatric: Alert, Normal Mood/Affect, Other (he believes that he drove himself to ER though he came by EMS. Claims to know one of the nurses from "the field". Believes it is still August. kedar has pulled his IV out twice.) Skin: Normal Color, Warm/Dry (SHEKHAR VALDES APRN) Progress/Results/Core Measures Results/Orders Lab Results Laboratory Tests Test 12/10/17 21:50 Range/Units White Blood Count 10.3 4.3-11.0 10^3/uL Red Blood Count 4.73 4.35-5.85 10^6/uL Hemoglobin 14.9 13.3-17.7 G/DL Hematocrit 43 40-54 % Mean Corpuscular Volume 91 80-99 FL Mean Corpuscular Hemoglobin 32 25-34 PG Mean Corpuscular Hemoglobin Concent 35 32-36 G/DL Red Cell Distribution Width 14.0 10.0-14.5 % Platelet Count 270 130-400 10^3/uL Mean Platelet Volume 10.2 7.4-10.4 FL Neutrophils (%) (Auto) 55 42-75 % Lymphocytes (%) (Auto) 31 12-44 % Monocytes (%) (Auto) 9 0-12 % Eosinophils (%) (Auto) 4 0-10 % Basophils (%) (Auto) 1 0-10 % Neutrophils # (Auto) 5.7 1.8-7.8 X 10^3 Lymphocytes # (Auto) 3.2 1.0-4.0 X 10^3 Monocytes # (Auto) 1.0 0.0-1.0 X 10^3 Eosinophils # (Auto) 0.4 H 0.0-0.3 10^3/uL Basophils # (Auto) 0.1 0.0-0.1 10^3/uL (GERHARD KATZ) Vital Signs/I&O 12/10/17 12/10/17 12/10/17 21:51 21:51 21:51 Temp 97.8 Pulse 105 Resp 17 B/P (MAP) 142/107 (119) Pulse Ox 97 97 O2 Delivery Room Air Room Air Room Air (GERHARD KATZ) Initial ECG Impression Date: Dec 10, 2017 Initial ECG Impression Time: 22:04 Initial ECG Rate: 94 Initial ECG Rhythm: Normal Sinus Initial ECG Intervals: Normal Initial ECG Impression: Normal Initial ECG Comparisson: No Previous ECG Available Comment No acute ST elevation or depression. (GERHARD KATZ) Diagnostic Imaging Diagonstic Imaging: Xray Plain Films/CT/US/NM/MRI: chest (1v) Comments Unremarkable Chest Reviewed: Reviewed by Me (GERHARD KATZ) Departure Communication (Admissions) Time/Spoke to Admitting Phy: 22:[address] Linares. We will admit to ICU,, consult cardiology. Time/Spoke to Consulting Phy: 22:49 Dr Pollack agrees to consult Dr. Katz has seen the patient with me in the emergency room and agrees with plan. (SHEKHAR VALDES APRN) Impression Primary Impression: Chest pain Qualified Codes: R07.9 - Chest pain, unspecified Additional Impressions: ETOH abuse Paranoia Disposition: ADMITTED INPATIENT Condition: Stable Admissions Decision to Admit Reason: Admit from ER (General) Decision to Admit/Date: Dec 10, 2017 Time/Decision to Admit Time: 22:49 (SHEKHAR VALDES APRN) Departure-Patient Inst. Referrals: [facility] [place] (PCP/Family) Primary Care Physician SHEKHAR VALDES APRN Dec 10, 2017 22:01 GERHARD KATZ Dec 10, 2017 22:11
[2017-12-10 22:09] LABS: INR 1.1 (0.8-1.4); PROTHROMBIN TIME PATIENT 13.8 SEC (12.2-14.7)
[2017-12-10 22:18] LABS: BILIRUBIN,URINE NEGATIVE (NEGATIVE); CLARITY,URINE CLEAR; COLOR,URINE YELLOW; GLUCOSE, URINE (UA) NEGATIVE (NEGATIVE); KETONES,URINE NEGATIVE (NEGATIVE); LEUKOCYTE ESTERASE ,URINE NEGATIVE (NEGATIVE); NITRITE,URINE NEGATIVE (NEGATIVE); PH,URINE 5 (5-9); PROTEIN,URINE NEGATIVE (NEGATIVE); UROBILINOGEN,URINE NORMAL (NORMAL)
[2017-12-10 22:23] LABS: ALANINE AMINOTRANSFERASE 11 U/L (0-55); ALBUMIN 4.2 GM/DL (3.2-4.5); ALKALINE PHOSPHATASE 104 U/L (40-136); BILIRUBIN,TOTAL 0.6 MG/DL (0.1-1.0); BUN/CREATININE RATIO 7; CALCIUM 9.2 MG/DL (8.5-10.1); CARBON DIOXIDE 19 MMOL/L (21-32); CHLORIDE 108 MMOL/L (98-107); CREATININE SERUM 1.05 MG/DL (0.60-1.30); GFR ESTIMATED > 60; GLUCOSE 107 MG/DL (70-105); LIPASE 42 U/L (8-78); MAGNESIUM 2.1 MG/DL (1.8-2.4); POTASSIUM 3.7 MMOL/L (3.6-5.0); SODIUM 139 MMOL/L (135-145); TOTAL PROTEIN 7.5 GM/DL (6.4-8.2)
[2017-12-10 22:25] LABS: MYOGLOBIN SERUM 29.4 NG/ML (10.0-92.0)
[2017-12-10 22:29] LABS: ACETAMINOPHEN < 10 UG/ML (10-30); SALICYLATE < 5.0 MG/DL (5.0-20.0)
[2017-12-10 22:30] LABS: BACTERIA,URINE TRACE /HPF; WBC,URINE RARE /HPF
[2017-12-10] MEDS ORDERED: LORazepam INJ 2 MG/ML (ATIVAN) VIAL IVP PRN (22:30)
[2017-12-10 22:34] LABS: AMPHETAMINE SCREEN, URINE NEGATIVE (NEGATIVE); BARBITURATE SCREEN URINE NEGATIVE (NEGATIVE); BENZODIAZEPINES SCREEN URINE NEGATIVE (NEGATIVE); CANNABINOID SCREEN, URINE POSITIVE (NEGATIVE); COCAINE SCREEN URINE NEGATIVE (NEGATIVE); METHADONE STAT NEGATIVE (NEGATIVE); METHAMPHETAMINE SCREEN URINE S NEGATIVE (NEGATIVE); OPIATE SCREEN URINE NEGATIVE (NEGATIVE); OXYCODONE STAT NEGATIVE (NEGATIVE); PROPOXYPHENE STAT NEGATIVE (NEGATIVE); TRICYCLIC ANTIDEPRESSANTS SCRE NEGATIVE (NEGATIVE)
[2017-12-10 23:15] VITALS: BP 136/90
[2017-12-10] MEDS ORDERED: NITROGLYCERIN 0.4 MG SL TABS BTL 25'S SL PRN (23:30)
[2017-12-10] MEDS ORDERED: LORazepam INJ 2 MG/ML (ATIVAN) VIAL IV PRN (23:30)
[2017-12-10] MEDS ORDERED: morphine INJ 4 MG/ML 1 ML (VIAL/SYRINGE) IV PRN (23:30)
[2017-12-10] MEDS ORDERED: CATHETER FLUSH 10 ML SYR IV PRN (23:30)
[2017-12-10] MEDS ORDERED: THIAMINE INJECTION 100 MG, FOLIC ACID INJECTION 1 MG, VITAMIN MULTI INJECTION 10 ML, MA... IV ONE ×5 (23:30)
[2017-12-11] VITALS (8 sets, daily range): BP systolic 96–121; BP diastolic 60–89
[2017-12-11 03:43] LABS: BASOPHILS # (AUTO) 0.1 10^3/uL (0.0-0.1); BASOPHILS % (AUTO) 1 % (0-10); EOSINOPHILS # (AUTO) 0.4 10^3/uL (0.0-0.3); EOSINOPHILS % (AUTO) 6 % (0-10); HEMATOCRIT 43 % (40-54); HEMOGLOBIN 15.4 G/DL (13.3-17.7); LYMPHOCYTES % (AUTO) 43 % (12-44); MEAN CORPUSCULAR HEMOGLOBIN 33 PG (25-34); MEAN CORPUSCULAR HGB CONC 36 G/DL (32-36); MEAN CORPUSCULAR VOLUME 91 FL (80-99); MONOCYTES # (AUTO) 0.5 X 10^3 (0.0-1.0); MONOCYTES % (AUTO) 8 % (0-12); NEUTROPHILS # (AUTO) 2.9 X 10^3 (1.8-7.8); NEUTROPHILS % (AUTO) 43 % (42-75); PLATELET COUNT 236 10^3/uL (130-400); RED BLOOD COUNT 4.74 10^6/uL (4.35-5.85); RED CELL DISTRIBUTION WIDTH 14.1 % (10.0-14.5); WHITE BLOOD COUNT 6.8 10^3/uL (4.3-11.0)
[2017-12-11 04:00] LABS: BUN/CREATININE RATIO 8; CALCIUM 9.1 MG/DL (8.5-10.1); CARBON DIOXIDE 19 MMOL/L (21-32); CHLORIDE 109 MMOL/L (98-107); CHOLESTEROL 230 MG/DL (< 200); CREATININE SERUM 0.93 MG/DL (0.60-1.30); GFR ESTIMATED > 60; GLUCOSE 95 MG/DL (70-105); HDL CHOLESTEROL 30 MG/DL (40-60); SODIUM 140 MMOL/L (135-145); TRIGLYCERIDES 192 MG/DL (<150); VLDL CHOLESTEROL 38 MG/DL (5-40)
[2017-12-11] MEDS ORDERED: CATHETER FLUSH 10 ML SYR IV SCH (06:00)
[2017-12-11] MEDS ORDERED: THIAMINE INJECTION 100 MG, FOLIC ACID INJECTION 1 MG, VITAMIN MULTI INJECTION 10 ML, MA... IV ONE ×5 (07:00)
--- NOTE | 2017-12-11 07:25 | Diagnostic Imaging Report ---
Indication: Chest pain Frontal chest obtained at 1005 hrs. p.m. and compared with 11/13/2016. Heart and mediastinal silhouette are normal in appearance. The lungs appear clear. There is no pneumothorax or pleural fluid. Impression: No acute process in the chest. Dictated by: Dictated on workstation # [id number]
[2017-12-11] MEDS ORDERED: meTOprolol TARTRATE 50 MG (LOPRESSOR) TAB PO SCH (09:00)
[2017-12-11] MEDS ORDERED: CLOPIDOGREL 75 MG (PLAVIX) TABLET PO SCH (09:00)
[2017-12-11] MEDS ORDERED: ASPIRIN E.C. 81 MG (ECOTRIN) TAB PO SCH (09:00)
[2017-12-11] MEDS ORDERED: lisINopril 20 MG (PRINIVIL) TABLET PO SCH (09:00)
[2017-12-11] MEDS ORDERED: ISOSORBIDE MONONITRATE 60 MG (IMDUR) TAB PO SCH (10:00)
--- NOTE | 2017-12-11 10:21 | Short Stay Summary ---
History of Present Illness History of Present Illness Reason for visit/HPI 47 yo M with recent h/o [place] with cardiac arrest that presented with chest pain after working on house. States that he took multiple doses of nitro without much improvement of chest pain. Denies any sweating or shortness of breath with chest pain. Denies missing any doses of medications. Patient has been drinking most of the day and has an elevated blood EtOH level. Date of Admission Dec 10, 2017 at 10:54 pm Date of Discharge 12/11/2017 Time Seen by Provider: 10:15 Attending Physician Raul Linares MD Admitting Physician [facility] [place] Consult Allergies and Home Medications Allergies Coded Allergies: No Known Drug Allergies (Unverified , 05/28/12) Home Medications Aspirin 81 Mg Tablet.dr, 81 MG PO DAILY, (Reported) Atorvastatin Calcium 80 Mg Tablet, 80 MG PO HS, (Reported) Clopidogrel Bisulfate 75 Mg Tablet, 75 MG PO DAILY, (Reported) Isosorbide Mononitrate 60 Mg Tab, 60 MG PO DAILY Prescribed by: RAUL LINARES on 12/11/17 1022 Lisinopril 20 Mg Tablet, 20 MG PO DAILY, (Reported) Metoprolol Tartrate 50 Mg Tablet, 50 MG PO BID, (Reported) Patient Home Medication List Home Medication List Reviewed: Yes Past Apjlhzb-Nzajyy-Heyzga Hx Patient Social History Living Status: Lives home with Alcohol Use: Regular Use Number of Drinks Today: AA Alcohol Beverage of Choice: Beer Recreational Drug Use: Yes Smoking Status: Current Everyday Smoker Type Used: Cigarettes Physical Abuse Screen: No Sexual Abuse: No Recent Foreign Travel: No Contact w/other who traveled: No Recent Hopitalizations: Yes Recent Infectious Disease Expo: No Immunizations Up To Date Tetanus Booster (TDap): Unknown Pediatric: No Seasonal Allergies Seasonal Allergies: No Surgeries Yes (JAW FX REPAIR X2) Cardiac, Coronary Stent Respiratory No Currently Using CPAP: No Currently Using BIPAP: No Cardiovascular Yes (STENT X 1 ) Coronary Artery Disease, Heart Attack, Heart Murmur, High Cholesterol, Hypertension Neurological No Reproductive System Hx Reproductive Disorders: No Sexually Transmitted Disease: No HIV/AIDS: No Genitourinary Yes Kidney Stones Gastrointestinal Yes (HX OF BLOOD IN STOOL) Gastrointestinal Bleed Musculoskeletal Yes Arthritis, Chronic Back Pain Endocrine History of Endocrine Disorders: No HEENT Loss of Vision: Denies Hearing Impairment: Denies Cancer No Psychosocial History of Psychiatric Problem: Yes (hAS NOT BEEN DX W/ MENTAL DISORDER ) Behavioral Health Disorders: Anxiety, Depression Integumentary History of Skin or Integumenta: No Blood Transfusions History of Blood Disorders: No Adverse Reaction to a Blood Tr: No Family Medical History Family Hx: Unknown Constitutional: no symptoms reported; No chills, No fever, No malaise, No weakness EENTM: no symptoms reported Respiratory: no symptoms reported; No cough, No dyspnea on exertion, No short of breath Cardiovascular: chest pain; No edema, No palpitations Gastrointestinal: no symptoms reported; No abdominal pain, No constipation, No diarrhea, No nausea, No vomiting Genitourinary: no symptoms reported; No dysuria, No frequency, No hematuria Musculoskeletal: back pain; No joint pain, No muscle pain Skin: no symptoms reported; No lesions, No rash Psychiatric/Neurological: No Symptoms Reported Physical Exam Vital Signs Vital Signs - First Documented Capillary Refill : Less Than 3 Seconds Height, Weight, BMI Height: 5'8.00" Weight: 156lbs. 5.0oz. [id number]; 23.8 BMI Method:Estimated General Appearance: No Apparent Distress, WD/WN HEENT: PERRL/EOMI Neck: Full Range of Motion, Non Tender, Supple Respiratory: Chest Non Tender, Lungs Clear, Normal Breath Sounds, No Accessory Muscle Use, No Respiratory Distress Cardiovascular: Regular Rate, Rhythm, No Edema, No Murmur Gastrointestinal: Normal Bowel Sounds, No Organomegaly, Non Tender, Soft Back: No CVA Tenderness Extremity: Normal Capillary Refill, No Calf Tenderness, No Pedal Edema Neurologic/Psychiatric: Alert, Oriented x3, shackler II-XII Norm as Tested Skin: Normal Color, Warm/Dry Lymphatic: No Adenopathy Clinical Quality Measures AMI/AHF: ASA po Prior to arrival: No DVT/VTE Risk/Contraindication: Risk Factor Score Per Nursin RFS Level Per Nursing on Admit: 2=Moderate Short Stay Diagnosis Discharge Diagnosis-Short Stay Admission Diagnosis: Chest pain CAD HTN HLD EtOH Intoxication MJ Abuse Final Discharge Diagnosis: See Above Conclusion Labs Laboratory Tests 12/10/17 21:50: White Blood Count 10.3, Red Blood Count 4.73, Hemoglobin 14.9, Hematocrit 43, Mean Corpuscular Volume 91, Mean Corpuscular Hemoglobin 32, Mean Corpuscular Hemoglobin Concent 35, Red Cell Distribution Width 14.0, Platelet Count 270, Mean Platelet Volume 10.2, Neutrophils (%) (Auto) 55, Lymphocytes (%) (Auto) 31 , Monocytes (%) (Auto) 9, Eosinophils (%) (Auto) 4, Basophils (%) (Auto) 1, Neutrophils # (Auto) 5.7, Lymphocytes # (Auto) 3.2, Monocytes # (Auto) 1.0, Eosinophils # (Auto) 0.4H, Basophils # (Auto) 0.1, Prothrombin Time 13.8, INR Comment 1.1, Activated Partial Thromboplast Time 30, D-Dimer 0.36, Sodium Level 139, Potassium Level 3.7, Chloride Level 108H, Carbon Dioxide Level 19L, Anion Gap 12, Blood Urea Nitrogen 7, Creatinine 1.05, Estimat Glomerular Filtration Rate > 60, BUN/Creatinine Ratio 7, Glucose Level 107H, Calcium Level 9.2, Magnesium Level 2.1, Total Bilirubin 0.6, Aspartate Amino Transf (AST/SGOT) 17, Alanine Aminotransferase (ALT/SGPT) 11, Alkaline Phosphatase 104, Myoglobin 29.4 , Troponin I < 0.30, B-Type Natriuretic Peptide 18.8, Total Protein 7.5, Albumin 4.2, Lipase 42, Salicylates Level < 5.0L, Acetaminophen Level < 10L, Serum Alcohol 225H 12/10/17 22:10: Urine Color YELLOW, Urine Clarity CLEAR, Urine pH 5, Urine Specific Miller 1.010L, Urine Protein NEGATIVE, Urine Glucose (UA) NEGATIVE, Urine Ketones NEGATIVE, Urine Nitrite NEGATIVE, Urine Bilirubin NEGATIVE, Urine Urobilinogen NORMAL, Urine Leukocyte Esterase NEGATIVE, Urine RBC (Auto) NEGATIVE, Urine RBC NONE, Urine WBC RARE, Urine Squamous Epithelial Cells NONE, Urine Crystals NONE , Urine Bacteria TRACE, Urine Casts NONE, Urine Mucus NEGATIVE, Urine Culture Indicated NO, Urine Opiates Screen NEGATIVE, Urine Oxycodone Screen NEGATIVE, Urine Methadone Screen NEGATIVE, Urine Propoxyphene Screen NEGATIVE, Urine Barbiturates Screen NEGATIVE, Ur Tricyclic Antidepressants Screen NEGATIVE, Urine Phencyclidine Screen NEGATIVE, Urine Amphetamines Screen NEGATIVE, Urine Methamphetamines Screen NEGATIVE, Urine Benzodiazepines Screen NEGATIVE, Urine Cocaine Screen NEGATIVE, Urine Cannabinoids Screen POSITIVEH 12/11/17 03:30: White Blood Count 6.8, Red Blood Count 4.74, Hemoglobin 15.4, Hematocrit 43, Mean Corpuscular Volume 91, Mean Corpuscular Hemoglobin 33, Mean Corpuscular Hemoglobin Concent 36, Red Cell Distribution Width 14.1, Platelet Count 236, Mean Platelet Volume 10.0, Neutrophils (%) (Auto) 43, Lymphocytes (%) (Auto) 43 , Monocytes (%) (Auto) 8, Eosinophils (%) (Auto) 6, Basophils (%) (Auto) 1, Neutrophils # (Auto) 2.9, Lymphocytes # (Auto) 3.0, Monocytes # (Auto) 0.5, Eosinophils # (Auto) 0.4H, Basophils # (Auto) 0.1, Sodium Level 140, Potassium Level 4.0, Chloride Level 109H, Carbon Dioxide Level 19L, Anion Gap 12, Blood Urea Nitrogen 7, Creatinine 0.93, Estimat Glomerular Filtration Rate > 60, BUN/ Creatinine Ratio 8, Glucose Level 95, Calcium Level 9.1, Troponin I < 0.30, Triglycerides Level 192H, Cholesterol Level 230H, LDL Cholesterol Direct 176H, VLDL Cholesterol 38, HDL Cholesterol 30L Conclusion/Plan 47 yo M with known CAD that presented with chest pain Typical Chest pain: Cardiology was consulted. Serial troponin normal. Patient had recent stress testing. Maximize medical management. Patient was discharged home with close follow up with cardiology. CAD: See Above HTN: Controlled, continue home meds HLD: Continue statin EtOH Intoxication: discussed the importance of cessation MJ Abuse Copy Copies To 1: RALU WEAVER MD Dec 11, 2017 10:21
[2017-12-11] MEDS ORDERED: ISM60TCR PO (10:22)
--- NOTE | 2017-12-11 10:27 | Consultation-Cardiology ---
HPI-Cardiology Cardiology Consultation: Date of Consultation 12/11/17 Date of Admission Attending Physician Raul Linares MD Admitting Physician [facility] Consulting Physician Luis Manuel POLLACK MD HPI: Time Seen by Provider: 09:30 Chief Complaint: Chest pain This is a 47-year-old gentleman who has had previous history of an PR with PCI in July 2017. 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 No PCI could be done since it was a very small vessel. Cardiac surgery consultation was done at who also were of the opinion that there is no surgical option. The patient continues on dual antiplatelet therapy. Patient presented with chest pain. He denies any shortness of breath. Review of Systems-Cardiology Review of Systems Constitutional: As described under HPI; No As described under HPI, No no symptoms reported, No chills, No fever, No lightheadedness Eyes: No As described under HPI, No no symptoms reported, No blindness, No blurred vision, No contact lenses, No drainage, No decreased acuity, No foreign body sensation, No pain, No vision change Ears/Nose/Throat: No As described under HPI, No no symptoms reported, No chronic hearing loss, No ear discharge, No ear pain, No nasal drainage, No ulcerations Respiratory: No no symptoms reported; As described under HPI; No As described under HPI, No cough, No orthopnea, No shortness of breath, No SOB with excertion Cardiovascular: No no symptoms reported; As described under HPI; No As described under HPI, No chest pain, No edema, No irregular heart rate, No lightheadedness, No palpitations Gastrointestinal: No no symptoms reported, No As described under HPI, No abdomen distended, No abdominal pain, No blood streaked bowels, No constipation , No diarrhea, No nausea, No vomiting, No stool coloration changes Genitourinary: No As described under HPI, No burning, No dysuria, No discharge , No frequency, No flank pain, No hematuria, No urgency Skin: No rash, No skin related problems, No ulcerations Psychiatric/Neurological: No anxiety, No depression, No seizure, No focal weakness, No syncope Hematologic: No bleeding abnormalities PVU-Guthra-Jcsjrn Hx Patient Social History Alcohol Use: Regular Use Recreational Drug Use: Yes Smoking Status: Current Everyday Smoker Type Used: Cigarettes Recent Foreign Travel: No Recent Infectious Disease Expo: No Hospitalization with Isolation: Denies Physical Abuse Screen: No Sexual Abuse: No Immunizations Up To Date Tetanus Booster (TDap): Unknown Past Medical History PMH As described under Assessment. Family Medical History Family History: Unknown Allergies and Home Medications Allergies Coded Allergies: No Known Drug Allergies (Unverified , 05/28/12) Home Medications Aspirin 81 Mg Tablet.dr, 81 MG PO DAILY, (Reported) Atorvastatin Calcium 80 Mg Tablet, 80 MG PO HS, (Reported) Clopidogrel Bisulfate 75 Mg Tablet, 75 MG PO DAILY, (Reported) Isosorbide Mononitrate 60 Mg Tab, 60 MG PO DAILY Prescribed by: RAUL LINARES on 12/11/17 1022 Lisinopril 20 Mg Tablet, 20 MG PO DAILY, (Reported) Metoprolol Tartrate 50 Mg Tablet, 50 MG PO BID, (Reported) Patient Home Medication List Home Medication List Reviewed: Yes Physical Exam-Cardiology Physical Exam Vital Signs/I&O 12/11/17 12/11/17 12/11/17 12/11/17 06:00 07:00 07:00 08:00 Temp 98.4 Pulse 83 81 78 Resp 23 16 B/P (MAP) 103/67 (79) 103/66 (78) Pulse Ox 95 98 95 O2 Delivery Room Air Room Air Room Air 12/11/17 12/11/17 12/11/17 08:00 09:00 11:00 Temp 98.9 Pulse 84 71 76 Resp 12 16 B/P (MAP) 115/89 (98) Pulse Ox 97 95 O2 Delivery Room Air Room Air Room Air Capillary Refill : Less Than 3 Seconds Constitutional: appears stated age, AAO x 3; No apparent distress; well- developed, well-nourished HEENT: PERRL; No normal ENT inspection, No TMs normal, No pharynx normal, No scleral icterus (R), No scleral icterus (L), No pale conjunctivae (R), No pale conjunctivae (L), No photophobia, No TM abnormal (R), No TM abnormal (L), No pharyngeal erythema, No tonsillar exudate, No other, No discharge, No EOMI; hearing is well preserved; No hard of hearing; oral hygience is good; No ulceration, No xanthelasmas are seen Neck: No non-tender, No full range of motion, No supple, No normal inspection, No carotid bruit, No limited range of motion, No lymphadenopathy (R), No lymphadenopathy (L), No tender lateral, No tender midline, No thyromegaly, No other; carotid pulses are 2 + bilaterally; No with good upstrokes Respiratory: No accessory muscle use, No respiratory distress, No chest tender , No chest expansion is symmetric; chest is bilaterally symmetric; No lungs clear to percussion; lungs clear to auscultation; No crackles, No rhonchi, No rales, No stridor, No wheezing, No pleural rub, No other Cardiovascular: regular rate-rhythm, S1 and S2 Gastrointestinal: No tender, No soft, No round, No distended, No pulsatile mass , No organomegaly, No guarding, No rebound, No tenderness, No hernia, No mass, No audible bowel sounds, No abnormal bowel sounds, No abdominal bruits, No spleenomegaly, No other Rectal: deferred Extremities: No normal range of motion, No non-tender, No normal inspection, No pedal edema, No calf tenderness, No normal capillary refill, No pelvis stable , No calf tenderness, No inflammation, No pedal edema, No slow capillary refill , No swelling, No other, No abrasion, No clubbing, No cyanosis, No ecchymosis, No laceration, No no lower extremity edema bilateral, No significant edema, No tenderness, No wound Neurologic/Psychiatric: no motor/sensory deficits, alert, normal mood/affect, oriented x 3, power is 5/5 both on sides Skin: No normal color, No warm/dry, No cyanosis, No cool, No diaphoresis, No damp, No ecchymosis, No jaundice, No mottled, No pallor, No rash, No tattoos/ piercings, No ulcerations, No rash on exposed areas, No ulcerations on exposed areas, No other Data Review Labs Laboratory Tests 12/10/17 21:50: White Blood Count 10.3, Red Blood Count 4.73, Hemoglobin 14.9, Hematocrit 43, Mean Corpuscular Volume 91, Mean Corpuscular Hemoglobin 32, Mean Corpuscular Hemoglobin Concent 35, Red Cell Distribution Width 14.0, Platelet Count 270, Mean Platelet Volume 10.2, Neutrophils (%) (Auto) 55, Lymphocytes (%) (Auto) 31 , Monocytes (%) (Auto) 9, Eosinophils (%) (Auto) 4, Basophils (%) (Auto) 1, Neutrophils # (Auto) 5.7, Lymphocytes # (Auto) 3.2, Monocytes # (Auto) 1.0, Eosinophils # (Auto) 0.4H, Basophils # (Auto) 0.1, Prothrombin Time 13.8, INR Comment 1.1, Activated Partial Thromboplast Time 30, D-Dimer 0.36, Sodium Level 139, Potassium Level 3.7, Chloride Level 108H, Carbon Dioxide Level 19L, Anion Gap 12, Blood Urea Nitrogen 7, Creatinine 1.05, Estimat Glomerular Filtration Rate > 60, BUN/Creatinine Ratio 7, Glucose Level 107H, Calcium Level 9.2, Magnesium Level 2.1, Total Bilirubin 0.6, Aspartate Amino Transf (AST/SGOT) 17, Alanine Aminotransferase (ALT/SGPT) 11, Alkaline Phosphatase 104, Myoglobin 29.4 , Troponin I < 0.30, B-Type Natriuretic Peptide 18.8, Total Protein 7.5, Albumin 4.2, Lipase 42, Salicylates Level < 5.0L, Acetaminophen Level < 10L, Serum Alcohol 225H 12/10/17 22:10: Urine Color YELLOW, Urine Clarity CLEAR, Urine pH 5, Urine Specific Stella 1.010L, Urine Protein NEGATIVE, Urine Glucose (UA) NEGATIVE, Urine Ketones NEGATIVE, Urine Nitrite NEGATIVE, Urine Bilirubin NEGATIVE, Urine Urobilinogen NORMAL, Urine Leukocyte Esterase NEGATIVE, Urine RBC (Auto) NEGATIVE, Urine RBC NONE, Urine WBC RARE, Urine Squamous Epithelial Cells NONE, Urine Crystals NONE , Urine Bacteria TRACE, Urine Casts NONE, Urine Mucus NEGATIVE, Urine Culture Indicated NO, Urine Opiates Screen NEGATIVE, Urine Oxycodone Screen NEGATIVE, Urine Methadone Screen NEGATIVE, Urine Propoxyphene Screen NEGATIVE, Urine Barbiturates Screen NEGATIVE, Ur Tricyclic Antidepressants Screen NEGATIVE, Urine Phencyclidine Screen NEGATIVE, Urine Amphetamines Screen NEGATIVE, Urine Methamphetamines Screen NEGATIVE, Urine Benzodiazepines Screen NEGATIVE, Urine Cocaine Screen NEGATIVE, Urine Cannabinoids Screen POSITIVEH 12/11/17 03:30: White Blood Count 6.8, Red Blood Count 4.74, Hemoglobin 15.4, Hematocrit 43, Mean Corpuscular Volume 91, Mean Corpuscular Hemoglobin 33, Mean Corpuscular Hemoglobin Concent 36, Red Cell Distribution Width 14.1, Platelet Count 236, Mean Platelet Volume 10.0, Neutrophils (%) (Auto) 43, Lymphocytes (%) (Auto) 43 , Monocytes (%) (Auto) 8, Eosinophils (%) (Auto) 6, Basophils (%) (Auto) 1, Neutrophils # (Auto) 2.9, Lymphocytes # (Auto) 3.0, Monocytes # (Auto) 0.5, Eosinophils # (Auto) 0.4H, Basophils # (Auto) 0.1, Sodium Level 140, Potassium Level 4.0, Chloride Level 109H, Carbon Dioxide Level 19L, Anion Gap 12, Blood Urea Nitrogen 7, Creatinine 0.93, Estimat Glomerular Filtration Rate > 60, BUN/ Creatinine Ratio 8, Glucose Level 95, Calcium Level 9.1, Troponin I < 0.30, Triglycerides Level 192H, Cholesterol Level 230H, LDL Cholesterol Direct 176H, VLDL Cholesterol 38, HDL Cholesterol 30L ECG Impression ECG Initial ECG Rhythm: Normal Sinus Initial ECG Impression: Normal A/P-Cardiology Assessment/Admission Diagnosis Chest pain, CAD, Anomalous RCA, Hypertension, Hyperlipidemia Marijuana use, Alcohol intoxication Plan Chest pain: Acute coronary syndrome was ruled out with serial negative troponin and negative EKG. And will follow-up as an outpatient. CAD: Patient will continue dual antiplatelet therapy for at least 1 year. He will also continue beta alissa, lisinopril and statin therapy. Hypertension: Continue beta alissa and lisinopril. Hyperlipidemia: Continue statin therapy. Alcohol intoxication: Defer to the primary team. Marijuana abuse: If defer to the primary team. Thank you for your consultation. Please call me if you have any questions. Jigna Pollack MD, FACP, FACC, FSCAI, FHRS, CCDS Interventional Cardiology Cardiac Electrophysiology Vascular Medicine and Endovascular Interventions Clinical Quality Measures AMI/AHF: ASA po Prior to arrival: No DVT/VTE Risk/Contraindication: Risk Factor Score Per Nursin RFS Level Per Nursing on Admit: 2=Moderate Luis Manuel POLLACK MD Dec 11, 2017 10:27
--- NOTE | 2017-12-11 10:40 | Discharge Instructions ---
Discharge Inst-[facility] Discharge Medications New, Converted or Re-Newed RX: Transmitted to Pharmacy ([facility]) New Medications: Isosorbide Mononitrate (Isosorbide Mononitrate ER) 60 Mg Tab 60 MG PO DAILY, #30 TAB Continued Medications: Aspirin (Aspirin EC) 81 Mg Tablet.dr 81 MG PO DAILY, TAB Atorvastatin Calcium (Atorvastatin Calcium) 80 Mg Tablet 80 MG PO HS, TAB Clopidogrel Bisulfate (Plavix) 75 Mg Tablet 75 MG PO DAILY, TAB Lisinopril (Lisinopril) 20 Mg Tablet 20 MG PO DAILY, TAB Metoprolol Tartrate (Metoprolol Tartrate) 50 Mg Tablet 50 MG PO BID, TAB Patient Instructions Goal/Follow Up Appt: December 15 @ [address] Zee for hospital followup Patient Instructions: - Make sure to review you medication list as a medication has been added Return to The Hospital For: - Chest pain - Shortness of breath Activity & Diet Discharge Diet: Cardiac Diet Activity as Tolerated: Yes Orders-Post D/C & Referrals Pneu Vac Indicated: Yes Copy Copies To 1: EUGENIA ZEE MD, HOLLY R MD Dec 11, 2017 10:37 am
[2017-12-11] MEDS ORDERED: ATORVASTATIN 80 MG (LIPITOR) TABLET PO SCH (21:00)
[2017-12-12] MEDS ORDERED: ISOSORBIDE MONONITRATE 60 MG (IMDUR) TAB PO SCH (09:00)
== END 2017-12-11 10:30 | disposition home or self-care (01) ==
LOC: EDUNIT# 21:51 → ER 21:52 → ICU 22:54 → UNDOADMOB 22:54 → ICU 23:10 → UNDODISOB 12-11 11:00
PROVIDERS: ADMIT Family Medicine; ATTEND Family Medicine
DX: R07.9 Chest pain, unspecified (principal); I25.10 Atherosclerotic heart disease of native coronary artery without angina pectoris; I10 Essential (primary) hypertension; E78.5 Hyperlipidemia, unspecified; F10.129 Alcohol abuse with intoxication, unspecified; F12.10 Cannabis abuse, uncomplicated; F17.210 Nicotine dependence, cigarettes, uncomplicated; I25.2 Old myocardial infarction; R00.2 Palpitations; E78.00 Pure hypercholesterolemia, unspecified; F41.9 Anxiety disorder, unspecified; F32.9 Major depressive disorder, single episode, unspecified; Z87.442 Personal history of urinary calculi
CPT/HCPCS: 36415; 71045; 80048; 80053; 80061; 80306; 80320; 80329; 81000; 83690; 83735; 83874; 83880; 84484; 85025; 85379; 85610; 85730; 87081; 93005; 93041; 96374; G0378

== ENCOUNTER 2018-04-05 00:14 | Inpatient (IN) | payer OTHER ==
[~2018-04-05] VITALS: Ht 170.2 cm; Wt 78.5 kg
[~2018-04-05 00:14] MED LIST changes: +ISM60TCR PO
[2018-04-05] MEDS ORDERED: KETOROLAC 30 MG/ML VIAL IVP STA (00:30)
[2018-04-05] MEDS ORDERED: LACTATED RINGERS 1,000 ML IV ONE (00:30)
[2018-04-05] MEDS ORDERED: cefTRIAXone FOR IV USE 2,000 MG in NS (IVPB) 50 ML IV ONE (00:30)
--- NOTE | 2018-04-05 00:56 | ED EENT ---
History of Present Illness General Chief Complaint: Dental Problems/Pain Stated Complaint: DENTAL SWELLING & PAIN,LEFT SIDE OF FACE SWOLLEN Nursing Triage Note: left dental pain, facial swelling Source: patient History of Present Illness Date Seen by Provider: Apr 05, 2018 Time Seen by Provider: 00:25 Initial Comments PT ARRIVES VIA POV FROM HOME HAS CHRONIC DENTAL PROBLEMS AND HAS HAD INCREASED PAIN TO LEFT UPPER TEETH FOR THE PAST 2 WEEKS STATES LEFT SIDE OF HIS FACE BEGAN TO SWELL AND HAVE INCREASE PAIN ON THURSDAY AFTERNOON 04/02/18, BUT WAS MUCH WORSE TODAY, AND NOW LEFT EYE IS COMPLETELY SWOLLEN SHUT STATES TONIGHT HE WOKE UP WITH SEVERE PAIN TO LEFT SIDE OF FACE STATES HE COULD NOT OPEN HIS JAW EARLIER DUE TO PAIN AND SWELLING HAS HAD PURULENT DRAINAGE FROM LEFT EYE FOR THE LAST COUPLE OF DAYS NO KNOWN FEVER HAS TAKEN NAPROXEN, TYLENOL AND 'S GABAPENTIN AT 1900 TONIGHT --IS ONLY TIME HE HAS TAKEN ANYTHING FOR PAIN ( PT STATES HE TAKES HIS 'S GABAPENTIN AT TIMES FOR HIS CHRONIC BACK PAIN ) STATES HE HAS BEEN ADVISED ON MULTIPLE OCCASIONS THAT HE NEEDS ALL OF HIS TEETH PULLED. BUT HAS NOT DONE IT. PT WITH LONG HISTORY OF MEDICAL NON-COMPLIANCE PCP: DR. ESTRADA AT [facility] COMMUNICATIONS PROFESSOR: DR. JEFF Allergies and Home Medications Allergies Coded Allergies: No Known Drug Allergies (Unverified , 05/28/12) Home Medications Aspirin 81 Mg Tablet.dr, 81 MG PO DAILY, (Reported) Atorvastatin Calcium 80 Mg Tablet, 80 MG PO HS, (Reported) Clopidogrel Bisulfate 75 Mg Tablet, 75 MG PO DAILY, (Reported) Isosorbide Mononitrate 60 Mg Tab, 60 MG PO DAILY Prescribed by: RAUL CARDOZA on 12/11/17 1022 Lisinopril 20 Mg Tablet, 20 MG PO DAILY, (Reported) Metoprolol Tartrate 50 Mg Tablet, 50 MG PO BID, (Reported) Patient Home Medication List Home Medication List Reviewed: Yes Review of Systems Review of Systems Constitutional: no symptoms reported Eyes: See HPI Ears: Other (LEFT EXTERNAL EAR FEELS WARM AND A LITTLE SWOLLNE) Nose: other (SWELLING TO LEFT SIDE OF NOSE) Mouth: see HPI, pain, swelling Throat: no symptoms reported Respiratory: no symptoms reported Cardiovascular: no symptoms reported Skin: no symptoms reported Neurological: No Symptoms Reported Hematologic/Lymphatic: No Symptoms Reported Immunological/Allergic: no symptoms reported Past Knizmzq-Gsfpgs-Dkvxds Hx Patient Social History Alcohol Use: Regular Use (NORMALLY DRINKS 18 PACK PLUS A PINT OF HARD LIQUOR / DAY X 30 YEARS) Number of Drinks Today: 6 Alcohol Beverage of Choice: Beer Recreational Drug Use: Yes (THC, METH, PILLS--PAIN PILLS MOSTLY. DENIES IV USE) Drug of Choice: THC, METH, RX PILLS--MOSTLY PAIN PILLS. DENIES IV USE Smoking Status: Current Everyday Smoker (UP TO 4 PPD) Type Used: Cigarettes (UP TO 4 PPD) Recent Foreign Travel: No Contact w/Someone Who Travel: No Recent Infectious Disease Expo: No Recent Hopitalizations: No Immunizations Up To Date Tetanus Booster (TDap): Unknown PED Vaccines UTD: No Seasonal Allergies Seasonal Allergies: No Past Medical History Surgeries: Yes (JAW FX REPAIR X2; CARDIAC CATHS WITH STENTS X 2, FIRST STENT , LAST STENT 07/2017) Cardiac, Coronary Stent Respiratory: No Currently Using CPAP: No Currently Using BIPAP: No Cardiac: Yes (CT X 2 WITH STENTS X 2--LAST ONE 07/2017; CT 07/2017 WITH CARDIAC ARREST WITH V-FIB; LONG HISTORY OF NONCOMPLIANCE) Coronary Artery Disease, Heart Attack, Heart Murmur, High Cholesterol, Hypertension, Irregular Heartbeat Neurological: No Reproductive Disorders: No Sexually Transmitted Disease: No HIV/AIDS: No Genitourinary: Yes Kidney Stones Gastrointestinal: Yes Gastrointestinal Bleed Musculoskeletal: Yes Arthritis, Chronic Back Pain Endocrine: No HEENT: Yes (EXTENSIVE DENTAL DECAY, CHRONIC DENTAL PROBLEMS) Loss of Vision: Denies Hearing Impairment: Denies Cancer: No Psychosocial: Yes Anxiety, Depression Integumentary: No Blood Disorders: No Adverse Reaction/Blood Tranf: No Family Medical History Unknown Physical Exam Vital Signs Vital Signs - First Documented 04/05/18 00:20 Temp 96.7 Pulse 106 Resp 18 B/P (MAP) 170/115 (133) Pulse Ox 98 O2 Delivery Room Air Height, Weight, BMI Height: 5'7.00" Weight: 164lbs. 0oz. 74.549264qg; 23.8 BMI Method:Stated General Appearance: WD/WN, no apparent distress, other (REEKS OF CIGARETTES AND ETOH. ROCKING BACK AND FORTH, SPEECH CLEAR, GAIT STEADY) Eyes: left eye other (LEFT EYE SWOLLEN SHUT, BUT WHEN EYE IS PRIED OPEN, EYE ITSELF APPEARS NORMAL AND PT REPORTS VISION IS NORMAL ) Ears: left ear other (LEFT EXTERNAL EAR WITH MILD ERYTHEMA AND SWELLING. ) Nose: other (LEFT SIDE OF NOSE WITH MODERATE SWELLING AND MILD ERYTHEMA) Mouth/Throat: mandibular swelling (ON LEFT), maxillary swelling (ON LEFT), trismus, other (EXTENSIVE DENTALY DECAY--MOST TEETH MISSING AND REMAINING TEETH DECAYED DOWN TO GUMS WITH EXTENSIVE EROSION OF GUM TISSUE/GINGIVAL DISEASE. MARKED SWELLING TO LEFT UPPER GUMS. NO GROSS PURULENT DRAINAGE OR DISCRETE AREA OF FLUCUTANCTE. ENTIRE LEFT SIDE OF FACE ( FOREHEAD SPARED) WITH SEVERE SWELLING AND LEFT EYE IS COMPLETELY AND TIGHTLY SWOLLEN SHUT. SKIN IS MODERATELY ERYTHEMATOUS AND VERY WARM TO TOUCH) Neck: non-tender, full range of motion, supple, normal inspection Cardiovascular: regular rate, rhythm, no murmur Respiratory: normal breath sounds, no respiratory distress, no accessory muscle use Neurologic/Psychiatric: no motor/sensory deficits, alert, oriented x 3 Skin: normal color, warm/dry, other ( ABOVE) Progress/Results/Core Measures Results/Orders Lab Results Laboratory Tests Test 04/05/18 00:40 04/05/18 02:16 Range/Units White Blood Count 13.4 H 4.3-11.0 10^3/uL Red Blood Count 4.62 4.35-5.85 10^6/uL Hemoglobin 15.1 13.3-17.7 G/DL Hematocrit 44 40-54 % Mean Corpuscular Volume 95 80-99 FL Mean Corpuscular Hemoglobin 33 25-34 PG Mean Corpuscular Hemoglobin Concent 35 32-36 G/DL Red Cell Distribution Width 13.3 10.0-14.5 % Platelet Count 224 130-400 10^3/uL Mean Platelet Volume 9.8 7.4-10.4 FL Neutrophils (%) (Auto) 76 H 42-75 % Lymphocytes (%) (Auto) 12 12-44 % Monocytes (%) (Auto) 9 0-12 % Eosinophils (%) (Auto) 3 0-10 % Basophils (%) (Auto) 0 0-10 % Neutrophils # (Auto) 10.2 H 1.8-7.8 X 10^3 Lymphocytes # (Auto) 1.5 1.0-4.0 X 10^3 Monocytes # (Auto) 1.3 H 0.0-1.0 X 10^3 Eosinophils # (Auto) 0.4 H 0.0-0.3 10^3/uL Basophils # (Auto) 0.0 0.0-0.1 10^3/uL Sodium Level 140 135-145 MMOL/L Potassium Level 3.5 L 3.6-5.0 MMOL/L Chloride Level 108 H 98-107 MMOL/L Carbon Dioxide Level 18 L 21-32 MMOL/L Anion Gap 14 5-14 MMOL/L Blood Urea Nitrogen 6 L 7-18 MG/DL Creatinine 0.85 0.60-1.30 MG/DL Estimat Glomerular Filtration Rate > 60 BUN/Creatinine Ratio 7 Glucose Level 125 H 70-105 MG/DL Lactic Acid Level 2.92 *H 0.50-2.00 MMOL/L Calcium Level 9.4 8.5-10.1 MG/DL Corrected Calcium 9.3 8.5-10.1 MG/DL Total Bilirubin 0.4 0.1-1.0 MG/DL Aspartate Amino Transf (AST/SGOT) 18 5-34 U/L Alanine Aminotransferase (ALT/SGPT) 17 0-55 U/L Alkaline Phosphatase 110 40-136 U/L Total Protein 7.5 6.4-8.2 GM/DL Albumin 4.1 3.2-4.5 GM/DL Serum Alcohol 39 H <10 MG/DL Urine Opiates Screen NEGATIVE NEGATIVE Urine Oxycodone Screen NEGATIVE NEGATIVE Urine Methadone Screen NEGATIVE NEGATIVE Urine Propoxyphene Screen NEGATIVE NEGATIVE Urine Barbiturates Screen NEGATIVE NEGATIVE Ur Tricyclic Antidepressants Screen NEGATIVE NEGATIVE Urine Phencyclidine Screen NEGATIVE NEGATIVE Urine Amphetamines Screen NEGATIVE NEGATIVE Urine Methamphetamines Screen NEGATIVE NEGATIVE Urine Benzodiazepines Screen NEGATIVE NEGATIVE Urine Cocaine Screen NEGATIVE NEGATIVE Urine Cannabinoids Screen POSITIVE H NEGATIVE My Orders Orders - JUANI,SANDY K DO Saline Lock/Iv-Start (04/05/18 00:30) Cbc With Automated Diff (04/05/18 00:30) Comprehensive Metabolic Panel (04/05/18 00:30) Lactic Acid Analyzer (04/05/18 00:30) Blood Culture (04/05/18 00:30) Ceftriaxone For Iv Use (Rocephin For I (04/05/18 00:30) Ketorolac Injection (Toradol Injection) (04/05/18 00:30) Saline Lock/Iv-Start (04/05/18 00:30) Lactated Ringers (Lr 1000 Ml Iv Solution (04/05/18 00:30) Ct Maxillofacial W (04/05/18 00:30) Alcohol (04/05/18 00:40) Drug Screen Stat (Urine) (04/05/18 00:40) Iohexol Injection (Omnipaque 350 Mg/Ml 1 (04/05/18 01:15) Contrast Received (Contrast Received) (04/05/18 01:15) Ns (Ivpb) (Sodium Chloride 0.9%) (04/05/18 01:15) Hydralazine Injection (Apresoline Inject (04/05/18 02:45) Medications Given in ED Current Medications Medications Dose Ordered Sig/David Route Start Time Stop Time Status Last Admin Dose Admin Ceftriaxone Sodium 2000 mg/ Sodium Chloride 70 ml @ 100 mls/hr ONCE ONCE IV 04/05/18 00:30 04/05/18 01:11 DC 04/05/18 01:20 100 MLS/HR Iohexol 100 ml ONCE ONCE IV 04/05/18 01:15 04/05/18 01:16 DC 04/05/18 01:13 100 ML Lactated Ringer's 1,000 ml @ 0 mls/hr Q0M ONCE IV 04/05/18 00:30 04/05/18 00:33 DC 04/05/18 00:47 0 MLS/HR Sodium Chloride 250 ml ONCE ONCE IV 04/05/18 01:15 04/05/18 01:16 DC 04/05/18 01:13 80 ML Vital Signs/I&O 04/05/18 04/05/18 00:20 00:47 Temp 96.7 96.7 Pulse 106 Resp 18 B/P (MAP) 170/115 (133) Pulse Ox 98 O2 Delivery Room Air Blood Pressure Mean: 133 Progress Progress Note : Progress Note NO DETERIORATION IN PT'S CONDITION DURING ER STAY SWELLING AND REDNESS TO LEFT SIDE OF FACE IS IMPROVED WITH ROCEPHIN + TORADOL-- LEFT EYE IS NO LONG SWOLLEN SHUT. DISCUSSED WITH PT REGARDING WHETHER HE ANY HISTORY OF DT'S, OR ALCOHOL WITHDRAWL SEIZURES, AND HE REPORTS HE ONLY GETS THE SHAKES, AND HAS GONE A DAY OR TWO--UP TO A WEEK OR TWO IN THE PAST, WITHOUT DRINKING AND NEVER HAD ANY SERIOUS WITHDRAWL SYMPTOMS Diagnostic Imaging Comments CT MAXILLOFACIALS--LARGE PERIAPICAL LUCENCY INVOLVING LEFT CUSPID TOOTH #11-- INDICATIVE OF PERIOSTEAL ABSCESS OF 7 X 12 X 14 MM. ALSO A SMALLER PERIAPICAL LUCENCY IN ADJACENT LATERAL MAXILLARY INCISOR. MILD MUCOSAL THICKENING OF LEFT MAXILLARY SINUS--PER [facility] VIA FAX @ [phone] Reviewed: Reviewed by Me Departure Communication (Admissions) 0154--SPOKE WITH DR. ESTRADA, ACCEPTS PT FOR ADMIT. Impression Primary Impression: DENTAL ABSCESS WITH LEFT FACIAL CELLULITIS Additional Impressions: Sepsis Alcoholism Illicit drug use HTN (hypertension) Disposition: ADMITTED INPATIENT Condition: Improved Admissions Decision to Admit Reason: Admit from ER (General) Decision to Admit/Date: Apr 05, 2018 Time/Decision to Admit Time: 01:55 Departure-Patient Inst. Referrals: [facility] (PCP/Family) Primary Care Physician SANDY GLORIA DO Apr 05, 2018 00:56
[2018-04-05 00:57] LABS: BASOPHILS % (AUTO) 0 % (0-10); EOSINOPHILS # (AUTO) 0.4 10^3/uL (0.0-0.3); EOSINOPHILS % (AUTO) 3 % (0-10); HEMATOCRIT 44 % (40-54); HEMOGLOBIN 15.1 G/DL (13.3-17.7); LYMPHOCYTES # (AUTO) 1.5 X 10^3 (1.0-4.0); LYMPHOCYTES % (AUTO) 12 % (12-44); MEAN CORPUSCULAR HEMOGLOBIN 33 PG (25-34); MEAN CORPUSCULAR HGB CONC 35 G/DL (32-36); MEAN CORPUSCULAR VOLUME 95 FL (80-99); MEAN PLATELET VOLUME 9.8 FL (7.4-10.4); MONOCYTES # (AUTO) 1.3 X 10^3 (0.0-1.0); MONOCYTES % (AUTO) 9 % (0-12); NEUTROPHILS # (AUTO) 10.2 X 10^3 (1.8-7.8); NEUTROPHILS % (AUTO) 76 % (42-75); PLATELET COUNT 224 10^3/uL (130-400); RED BLOOD COUNT 4.62 10^6/uL (4.35-5.85); RED CELL DISTRIBUTION WIDTH 13.3 % (10.0-14.5); WHITE BLOOD COUNT 13.4 10^3/uL (4.3-11.0)
[2018-04-05 01:13] LABS: ALANINE AMINOTRANSFERASE 17 U/L (0-55); ALBUMIN 4.1 GM/DL (3.2-4.5); BILIRUBIN,TOTAL 0.4 MG/DL (0.1-1.0); BUN/CREATININE RATIO 7; CALCIUM 9.4 MG/DL (8.5-10.1); CARBON DIOXIDE 18 MMOL/L (21-32); CHLORIDE 108 MMOL/L (98-107); CREATININE SERUM 0.85 MG/DL (0.60-1.30); GFR ESTIMATED > 60; GLUCOSE 125 MG/DL (70-105); POTASSIUM 3.5 MMOL/L (3.6-5.0); SODIUM 140 MMOL/L (135-145); TOTAL PROTEIN 7.5 GM/DL (6.4-8.2)
[2018-04-05] MEDS ORDERED: NS 250 ML (IVPB) BAG IV ONE (01:15)
[2018-04-05] MEDS ORDERED: RECEIVED CONTRAST (Hold Metformin) IV SCH (01:15)
[2018-04-05] MEDS ORDERED: IOHEXOL 350 MG/ML 100 ML (OMNIPAQUE 350) VIAL IV ONE (01:15)
[2018-04-05 01:26] LABS: ALKALINE PHOSPHATASE 110 U/L (40-136)
[2018-04-05 02:34] LABS: AMPHETAMINE SCREEN, URINE NEGATIVE (NEGATIVE); BARBITURATE SCREEN URINE NEGATIVE (NEGATIVE); BENZODIAZEPINES SCREEN URINE NEGATIVE (NEGATIVE); CANNABINOID SCREEN, URINE POSITIVE (NEGATIVE); COCAINE SCREEN URINE NEGATIVE (NEGATIVE); METHADONE STAT NEGATIVE (NEGATIVE); METHAMPHETAMINE SCREEN URINE S NEGATIVE (NEGATIVE); OPIATE SCREEN URINE NEGATIVE (NEGATIVE); OXYCODONE STAT NEGATIVE (NEGATIVE); PROPOXYPHENE STAT NEGATIVE (NEGATIVE); TRICYCLIC ANTIDEPRESSANTS SCRE NEGATIVE (NEGATIVE)
[2018-04-05] MEDS ORDERED: hydrALAZINE (APESOLINE) 20 MG/ML VIAL ONE (02:44)
[2018-04-05] MEDS ORDERED: hydrALAZINE (APESOLINE) 20 MG/ML VIAL IV ONE (02:45)
[2018-04-05] MEDS ORDERED: meTOproloL SUCCINATE 50 MG (TOPROL XL) TAB PO ONE (03:45)
[2018-04-05] MEDS ORDERED: LORazepam INJ 2 MG/ML (ATIVAN) VIAL IV PRN ×2 (03:45→12:15)
[2018-04-05] MEDS ORDERED: NICOTINE 21 MG (NICODERM) PATCH ONE (03:45)
[2018-04-05] MEDS: NICOTINE 21 MG (NICODERM) PATCH TD SCH (03:51)
[2018-04-05] MEDS: LACTATED RINGERS 1,000 ML IV SCH ×3 (03:52→17:10)
[2018-04-05 04:00] VITALS: BP 158/95
[2018-04-05 04:25] LABS: BASOPHILS % (AUTO) 0 % (0-10); EOSINOPHILS # (AUTO) 0.5 10^3/uL (0.0-0.3); EOSINOPHILS % (AUTO) 3 % (0-10); HEMATOCRIT 44 % (40-54); HEMOGLOBIN 15.2 G/DL (13.3-17.7); LYMPHOCYTES # (AUTO) 1.9 X 10^3 (1.0-4.0); LYMPHOCYTES % (AUTO) 12 % (12-44); MEAN CORPUSCULAR HEMOGLOBIN 33 PG (25-34); MEAN CORPUSCULAR HGB CONC 35 G/DL (32-36); MEAN CORPUSCULAR VOLUME 94 FL (80-99); MEAN PLATELET VOLUME 10.1 FL (7.4-10.4); MONOCYTES # (AUTO) 1.6 X 10^3 (0.0-1.0); MONOCYTES % (AUTO) 10 % (0-12); NEUTROPHILS # (AUTO) 12.1 X 10^3 (1.8-7.8); NEUTROPHILS % (AUTO) 75 % (42-75); PLATELET COUNT 247 10^3/uL (130-400); RED BLOOD COUNT 4.61 10^6/uL (4.35-5.85); RED CELL DISTRIBUTION WIDTH 13.3 % (10.0-14.5); WHITE BLOOD COUNT 16.2 10^3/uL (4.3-11.0)
[2018-04-05 04:36] LABS: ALANINE AMINOTRANSFERASE 16 U/L (0-55); ALBUMIN 4.1 GM/DL (3.2-4.5); ALKALINE PHOSPHATASE 110 U/L (40-136); BILIRUBIN,TOTAL 0.5 MG/DL (0.1-1.0); BUN/CREATININE RATIO 6; CALCIUM 9.7 MG/DL (8.5-10.1); CARBON DIOXIDE 20 MMOL/L (21-32); CHLORIDE 105 MMOL/L (98-107); GFR ESTIMATED > 60; GLUCOSE 113 MG/DL (70-105); POTASSIUM 4.2 MMOL/L (3.6-5.0); SODIUM 136 MMOL/L (135-145); TOTAL PROTEIN 7.6 GM/DL (6.4-8.2)
[2018-04-05 05:12] LABS: EOSINOPHILS % (MANUAL) 4 %; LYMPHOCYTES % (MANUAL) 15 %; MONOCYTES % (MANUAL) 9 %; NEUTROPHILS % (MANUAL) 72 %; STOMATOCYTES MODERATE
[2018-04-05] MEDS: ACETAMINOPHEN 500 MG TAB (TYLENOL) PO PRN ×3 (05:50→22:55)
[2018-04-05 06:00] VITALS: BP 146/87
--- NOTE | 2018-04-05 06:54 | Diagnostic Imaging Report ---
PROCEDURE: CT maxillofacial with contrast. TECHNIQUE: After intravenous administration of contrast, axial images were obtained through the face and reformatted into coronal and sagittal planes. INDICATION: Left-sided periodontal pain. There is a large 13 mm x 10 mm periapical bony lucency associated with the root of tooth #11 and the left maxilla with anterior cortical disruption with adjacent overlying soft tissue swelling, subperiosteal fluid and subperiosteal gas. Subperiosteal gas/fluid collection is presumed abscess and measures an AP thickness or depth of 5 mm. Overlying cellulitis and subcutaneous edema is present and there is some mild left-sided reactive lymphadenopathy. Similar periapical lucencies without full-thickness cortical disruption of the adjacent left maxillary teeth present. There is slight membrane thickening in the left greater than right maxillary sinus, no paranasal sinus air-fluid level. The mastoids and middle ear cavities are clear. The nasopharynx and the hypopharynx as well as visualized larynx unremarkable. The prevertebral and retropharyngeal spaces unremarkable. IMPRESSION: Left periapical and subperiosteal abscess associated with the left maxillary bicuspid tooth #11. Some chronic paranasal sinus membrane thickening without air-fluid level. No other acute finding. I agree with the preliminary. Dictated by: Dictated on workstation # [id number]
[2018-04-05] MEDS ORDERED: FLU QUADRIvalent (5+ YOA) 2018-2019 (AFLURIA) 0.5 ML IM ONE (07:30)
[2018-04-05 08:00] VITALS: BP 138/83
[2018-04-05] MEDS ORDERED: ISM60TCR PO (11:19)
[2018-04-05 12:00] VITALS: BP 139/89
--- NOTE | 2018-04-05 12:00 | History & Physicial ([facility]S) ---
HPI History of Present Illness: 47 yo male came to ER due to severe facial swelling associated with tooth problem. He states that he started having pain and swelling on [place] evening about 2 days ago, which progressively got worse. He has had some teeth pulled in the area, but apparently was to have more done and was not happy with the dentist so had not been back. Date seen by provider: Apr 05, 2018 Time Seen by Provider: 10:15 Attending Physician Eugenia Zee MD [facility] Consult Date of Admission Apr 05, 2018 at 01:55 Home Medications Home Medications Reviewed patient Home Medication Reconciliation performed by pharmacy medication reconciliations missile technician and/or nursing. Patients Allergies have been reviewed. Allergies Coded Allergies: No Known Drug Allergies (Unverified , 05/28/12) BVX-Nhljfl-Bbuhkd Hx Patient Social History Alcohol Use: Regular Use Recreational Drug Use: Yes (THC, METH, PILLS--PAIN PILLS MOSTLY. DENIES IV USE) Drug of Choice: THC, METH, RX PILLS--MOSTLY PAIN PILLS. DENIES IV USE Smoking Status: Current Everyday Smoker Type Used: Cigarettes Recent Foreign Travel: No Contact w/other who traveled: No Recent Hopitalizations: No Recent Infectious Disease Expo: No Physical Abuse Screen: No Sexual Abuse: No Immunizations Up To Date Tetanus Booster (TDap): Unknown Past Medical History Past medical history 1. Coronary artery disease 2. Tobaccoism 3. Substance abuse 4. Renal calculi 5. Alcoholism Past surgical history 1. Repair of jaw fracture 2. Coronary artery stent Family Medical History Family History: Unknown Review of Systems (CHC) Constitutional: fever EENTM: ear pain, mouth pain Cardiovascular: chest pain (intermittently, none currently) Gastrointestinal: no symptoms reported Genitourinary: no symptoms reported Musculoskeletal: no symptoms reported Skin: no symptoms reported Psychiatric/Neurological: Paresthesia (feet, chronic) Reviewed Test Results Reviewed Test Results Lab Laboratory Tests Test 04/05/18 00:40 04/05/18 02:16 04/05/18 03:05 Range/Units White Blood Count 13.4 H 16.2 H 4.3-11.0 10^3/uL Red Blood Count 4.62 4.61 4.35-5.85 10^6/uL Hemoglobin 15.1 15.2 13.3-17.7 G/DL Hematocrit 44 44 40-54 % Mean Corpuscular Volume 95 94 80-99 FL Mean Corpuscular Hemoglobin 33 33 25-34 PG Mean Corpuscular Hemoglobin Concent 35 35 32-36 G/DL Red Cell Distribution Width 13.3 13.3 10.0-14.5 % Platelet Count 224 247 130-400 10^3/uL Mean Platelet Volume 9.8 10.1 7.4-10.4 FL Neutrophils (%) (Auto) 76 H 75 42-75 % Lymphocytes (%) (Auto) 12 12 12-44 % Monocytes (%) (Auto) 9 10 0-12 % Eosinophils (%) (Auto) 3 3 0-10 % Basophils (%) (Auto) 0 0 0-10 % Neutrophils # (Auto) 10.2 H 12.1 H 1.8-7.8 X 10^3 Lymphocytes # (Auto) 1.5 1.9 1.0-4.0 X 10^3 Monocytes # (Auto) 1.3 H 1.6 H 0.0-1.0 X 10^3 Eosinophils # (Auto) 0.4 H 0.5 H 0.0-0.3 10^3/uL Basophils # (Auto) 0.0 0.0 0.0-0.1 10^3/uL Sodium Level 140 136 135-145 MMOL/L Potassium Level 3.5 L 4.2 3.6-5.0 MMOL/L Chloride Level 108 H 105 98-107 MMOL/L Carbon Dioxide Level 18 L 20 L 21-32 MMOL/L Anion Gap 14 11 5-14 MMOL/L Blood Urea Nitrogen 6 L 5 L 7-18 MG/DL Creatinine 0.85 0.80 0.60-1.30 MG/DL Estimat Glomerular Filtration Rate > 60 > 60 BUN/Creatinine Ratio 7 6 Glucose Level 125 H 113 H 70-105 MG/DL Lactic Acid Level 2.92 *H 1.85 0.50-2.00 MMOL/L Calcium Level 9.4 9.7 8.5-10.1 MG/DL Corrected Calcium 9.3 9.6 8.5-10.1 MG/DL Total Bilirubin 0.4 0.5 0.1-1.0 MG/DL Aspartate Amino Transf (AST/SGOT) 18 22 5-34 U/L Alanine Aminotransferase (ALT/SGPT) 17 16 0-55 U/L Alkaline Phosphatase 110 110 40-136 U/L Total Protein 7.5 7.6 6.4-8.2 GM/DL Albumin 4.1 4.1 3.2-4.5 GM/DL Serum Alcohol 39 H <10 MG/DL Urine Opiates Screen NEGATIVE NEGATIVE Urine Oxycodone Screen NEGATIVE NEGATIVE Urine Methadone Screen NEGATIVE NEGATIVE Urine Propoxyphene Screen NEGATIVE NEGATIVE Urine Barbiturates Screen NEGATIVE NEGATIVE Ur Tricyclic Antidepressants Screen NEGATIVE NEGATIVE Urine Phencyclidine Screen NEGATIVE NEGATIVE Urine Amphetamines Screen NEGATIVE NEGATIVE Urine Methamphetamines Screen NEGATIVE NEGATIVE Urine Benzodiazepines Screen NEGATIVE NEGATIVE Urine Cocaine Screen NEGATIVE NEGATIVE Urine Cannabinoids Screen POSITIVE H NEGATIVE Neutrophils % (Manual) 72 % Lymphocytes % (Manual) 15 % Monocytes % (Manual) 9 % Eosinophils % (Manual) 4 % Stomatocytes MODERATE Radiology CT face: DRAFT "IMPRESSION: Left periapical and subperiosteal abscess associated with the left maxillary bicuspid tooth #11. Some chronic paranasal sinus membrane thickening without air-fluid level. No other acute finding." Physical Exam-([facility]) Physical Exam Vital Signs VS - Last 72 Hours, by Label 04/05/18 04/05/18 04/05/18 04/05/18 00:20 00:47 02:54 03:10 Temp 96.7 96.7 97.1 Pulse 106 101 Resp 18 18 B/P (MAP) 170/115 (133) 167/104 (125) Pulse Ox 98 98 100 O2 Delivery Room Air Room Air Room Air 04/05/18 04/05/18 04/05/18 04/05/18 04:00 05:50 06:00 08:00 Temp 102.3 102.3 102.5 101.4 Pulse 110 119 118 Resp 16 18 B/P (MAP) 158/95 (116) 146/87 (106) 138/83 (101) Pulse Ox 97 98 96 O2 Delivery Room Air Room Air Room Air 04/05/18 04/05/18 08:00 08:08 Temp 101.4 Pulse Ox 96 O2 Delivery Room Air Capillary Refill : Less Than 3 Seconds General Appearance: no apparent distress HEENT: other (left facial swelling with eye swollen shut but able to open actively) Respiratory: lungs clear Cardiovascular: regular rate, rhythm, no murmur Gastrointestinal: normal bowel sounds, non tender, soft Neurologic/Psychiatric: alert, other (reports hearing voices which is chronic for him- telling him to leave hospital last night) Skin: warm/dry Assessment/Plan Assessment/Plan Admission Status: Inpatient Order (span 2 midnights) Reason for Inpatient Admission: Severe cellulitis with sepsis requiring intravenous antibiotics. (1) Sepsis Status: Acute Assessment & Plan: With fever, tachycardia, leukocytosis and mild lactic acidosis on admission. -Started on ceftriaxone in ER, will change to amp/sulbactam for great anaerobic coverage. Lactic acidosis resolved. (2) Dental abscess Status: Acute Assessment & Plan: Amp/sulbactam, Dr. Parkinson consulted. No large abscess noted on CT. (3) Facial cellulitis Status: Acute Assessment & Plan: Secondary to dental infection, amp/sulbactam as noted above. (4) Hypertension Status: Chronic Assessment & Plan: Resume home medications Qualifiers: Qualified Codes: I10 - Essential (primary) hypertension (5) Hyperlipidemia Status: Chronic Assessment & Plan: Resume home atorvastatin (6) Psychosis Status: Chronic Assessment & Plan: Auditory hallucinations have been an ongoing problem, he has been very hesitant to see Psychiatry or take medications, but states he is willing to try. His voices typically tell him things that are not markedly dangerous but concerning- such as that he should leave the hospital. He denies any instructions to harm self or others. He states he would be interested in long-acting injectable because he and his agree he is unlikely to continue medications at home. Qualifiers: Qualified Codes: F29 - Unspecified psychosis not due to a substance or known physiological condition (7) Coronary artery disease Status: Chronic Assessment & Plan: Resume home clopidogrel and aspirin. If chest pain recurs, EKG and consider Cardiology consult as he has been resistant to follow-up in clinic for repeat testing after his MIs. Qualifiers: Qualified Codes: I25.118 - Atherosclerotic heart disease of [place] coronary artery with other forms of angina pectoris (8) Alcoholism Status: Chronic Assessment & Plan: EtOH level 39 on admit. Monitor CIWA and use lorazepam as needed. (9) DVT prophylaxis Status: Acute Assessment & Plan: Enoxaparin Clinical Quality Measures DVT/VTE Risk/Contraindication: Risk Factor Score Per Nursin RFS Level Per Nursing on Admit: 3=High EUGENIA ZEE MD Apr 05, 2018 12:00 pm
[2018-04-05] MEDS ORDERED: THIAMINE INJECTION 100 MG, FOLIC ACID INJECTION 1 MG, MAGNESIUM SULFATE 2 GM, VITAMIN M... IV SCH ×5 (12:02)
[2018-04-05] MEDS ORDERED: D5 1/2 NS 1000 ML IV SOLUTION 1,000 ML IV PRN (12:15)
[2018-04-05] MEDS ORDERED: SENNA W/DOCUSATE (SENOKOT S) TABLET PO PRN (12:15)
[2018-04-05] MEDS ORDERED: LORazepam INJ 2 MG/ML (ATIVAN) VIAL IM/IV PRN (12:15)
[2018-04-05] MEDS ORDERED: ANTACID SUSP 30 ML UDC (MYLANTA) PO PRN (12:15)
[2018-04-05] MEDS ORDERED: ONDANSETRON 4 MG (ZOFRAN) ORAL DISSOLVE TAB SL PRN (12:15)
[2018-04-05] MEDS ORDERED: ONDANSETRON 4 MG/2 ML (SDV) Z0FRAN IV PRN (12:15)
[2018-04-05] MEDS ORDERED: LORazepam 1 MG (ATIVAN) TAB PO PRN (12:15)
[2018-04-05] MEDS ORDERED: ENOXAPARIN 40 MG/0.4 ML (LOVENOX) SYR SC SCH (12:45)
[2018-04-05] MEDS: AMPICILLIN/SULBACTAM INJECTION 3 GM in NS (IVPB) 100 ML IV SCH ×2 (12:47→18:13)
[2018-04-05] MEDS: KETOROLAC 30 MG/ML VIAL IV PRN ×2 (12:47→18:51)
[2018-04-05] MEDS: THIAMINE INJECTION 100 MG, FOLIC ACID INJECTION 1 MG, MAGNESIUM SULFATE 2 GM, VITAMIN M... IV SCH ×5 (13:31)
--- NOTE | 2018-04-05 16:15 | Diagnostic Imaging Report ---
INDICATION: Dental abscess. EXAMINATION: Panorex of the mandible. FINDINGS: A Panorex of the mandible shows several teeth have been extracted previously. Only two incisors remain in the left mandible. There is no evidence of a periapical abscess. IMPRESSION: Multiple teeth extractions. No evidence for dental abscess. Dictated by: Dictated on workstation # [id number]
[2018-04-05 16:45] VITALS: BP 144/92
[2018-04-05 19:38] VITALS: BP 157/97
[2018-04-05] MEDS: meTOprolol TARTRATE 50 MG (LOPRESSOR) TAB PO SCH (20:51)
[2018-04-05] MEDS ORDERED: cefTRIAXone 1 GM/NS 50 ML IVPB IV SCH ×2 (21:00)
[2018-04-06] VITALS: BP 148/95
[2018-04-06] MEDS: AMPICILLIN/SULBACTAM INJECTION 3 GM in NS (IVPB) 100 ML IV SCH ×2 (00:29→05:26)
[2018-04-06] MEDS: LACTATED RINGERS 1,000 ML IV SCH ×2 (02:50→06:37)
[2018-04-06] MEDS: KETOROLAC 30 MG/ML VIAL IV PRN ×2 (03:41→10:06)
[2018-04-06 04:00] VITALS: BP 156/90
[2018-04-06 05:40] LABS: HEMOGLOBIN 13.4 G/DL (13.3-17.7); MEAN PLATELET VOLUME 10.4 FL (7.4-10.4); RED BLOOD COUNT 4.21 10^6/uL (4.35-5.85); RED CELL DISTRIBUTION WIDTH 13.1 % (10.0-14.5)
[2018-04-06 06:06] LABS: ALANINE AMINOTRANSFERASE 14 U/L (0-55); ALBUMIN 3.5 GM/DL (3.2-4.5); ALKALINE PHOSPHATASE 102 U/L (40-136); BILIRUBIN,TOTAL 1.2 MG/DL (0.1-1.0); BUN/CREATININE RATIO 7; CALCIUM 9.3 MG/DL (8.5-10.1); CARBON DIOXIDE 23 MMOL/L (21-32); CHLORIDE 107 MMOL/L (98-107); CREATININE SERUM 0.92 MG/DL (0.60-1.30); GFR ESTIMATED > 60; GLUCOSE 192 MG/DL (70-105); POTASSIUM 3.7 MMOL/L (3.6-5.0); SODIUM 140 MMOL/L (135-145); TOTAL PROTEIN 6.5 GM/DL (6.4-8.2)
[2018-04-06 08:26] VITALS: BP 158/98
[2018-04-06] MEDS ORDERED: ATORVASTATIN 80 MG (LIPITOR) TABLET PO SCH (09:00)
[2018-04-06] MEDS ORDERED: CLOPIDOGREL 75 MG (PLAVIX) TABLET PO SCH (09:00)
[2018-04-06] MEDS ORDERED: ASPIRIN E.C. 81 MG (ECOTRIN) TAB PO SCH (09:00)
[2018-04-06] MEDS ORDERED: lisINopril 20 MG (PRINIVIL) TABLET PO SCH (09:00)
[2018-04-06] MEDS: ACETAMINOPHEN 500 MG TAB (TYLENOL) PO PRN (09:06)
[2018-04-06] MEDS: THIAMINE INJECTION 100 MG, FOLIC ACID INJECTION 1 MG, MAGNESIUM SULFATE 2 GM, VITAMIN M... IV SCH ×5 (09:06)
[2018-04-06] MEDS: meTOprolol TARTRATE 50 MG (LOPRESSOR) TAB PO SCH (09:06)
[2018-04-06] MEDS: ISOSORBIDE MONONITRATE 60 MG (IMDUR) TAB PO SCH ×2 (09:06→10:11)
[2018-04-06] MEDS: NICOTINE 21 MG (NICODERM) PATCH TD SCH (09:07)
[2018-04-06] MEDS ORDERED: AMOX-358 PO (11:52)
--- NOTE | 2018-04-06 11:57 | Discharge Instructions ---
Discharge [facility] Discharge Medications New, Converted or Re-Newed RX: Transmitted to Pharmacy New Medications: Amoxicillin/Potassium Clav (Augmentin 875-125 Tablet) 1 Each Tablet 1 EACH PO BID for 10 Days, #20 TAB 0 Refills Continued Medications: Aspirin (Aspirin EC) 81 Mg Tablet.dr 81 MG PO DAILY, TAB Atorvastatin Calcium (Atorvastatin Calcium) 80 Mg Tablet 80 MG PO DAILY, TAB Clopidogrel Bisulfate (Plavix) 75 Mg Tablet 75 MG PO DAILY, TAB Isosorbide Mononitrate (Isosorbide Mononitrate ER) 60 Mg Tab 60 MG PO DAILY, TAB Lisinopril (Lisinopril) 20 Mg Tablet 20 MG PO DAILY, TAB Metoprolol Tartrate (Metoprolol Tartrate) 50 Mg Tablet 50 MG PO BID, TAB Patient Instructions Goal/Follow Up Appt: Follow-up with - May 11 at 1 pm at [facility]. Follow up with Dr. Zee on Apr 12 at 10:40 am. Follow up with Dr. Parkinson at 3 pm today. Return to The Hospital For: Fever, worsening facial swelling, chest pain, suicidal thoughts, hearing voices threatening danger to self or others Activity & Diet Discharge Diet: Cardiac Diet Activity as Tolerated: Yes Copy Copies To 1: EUGENIA ZEE MD, BETHANY N MD Apr 06, 2018 11:54 am
[2018-04-06 12:35] VITALS: BP 158/98
--- NOTE | 2018-04-07 21:18 | Discharge Summary ---
Diagnosis/Chief Complaint Date of Admission Apr 05, 2018 at 01:55 Date of Discharge Apr 06, 2018 at 12:35 Admission Diagnosis Admission Diagnosis Sepsis Dental abscess Facial cellulitis Discharge Diagnosis See problem list Problems/Diagnosis: (1) Sepsis Assessment & Plan: With fever, tachycardia, leukocytosis and mild lactic acidosis on admission. -Started on ceftriaxone in ER, changed to amp/sulbactam for great anaerobic coverage. Lactic acidosis resolved. Discharged on Augmentin. Status: Acute (2) Dental abscess Assessment & Plan: Amp/sulbactam, Dr. Parkinson consulted. No large abscess noted on CT. Pt okay for d/c per Dr. Parkinson to be seen same afternoon outpatient, patient requesting to go in spite of fever this am. Status: Acute (3) Facial cellulitis Assessment & Plan: Secondary to dental infection, amp/sulbactam as noted above. Status: Acute (4) Hypertension Assessment & Plan: Resume home medications Qualifiers: Qualified Codes: I10 - Essential (primary) hypertension Status: Chronic (5) Hyperlipidemia Assessment & Plan: Resume home atorvastatin Status: Chronic (6) Psychosis Assessment & Plan: Auditory hallucinations have been an ongoing problem, he has been very hesitant to see Psychiatry or take medications, but states he is willing to try. His voices typically tell him things that are not markedly dangerous but concerning- such as that he should leave the hospital. He denies any instructions to harm self or others. He states he would be interested in long-acting injectable because he and his agree he is unlikely to continue medications at home. Appt scheduled with Behavioral Health and he states he will attend. Qualifiers: Qualified Codes: F29 - Unspecified psychosis not due to a substance or known physiological condition Status: Chronic (7) Coronary artery disease Assessment & Plan: Resume home clopidogrel and aspirin. If chest pain recurs, EKG and consider Cardiology consult as he has been resistant to follow-up in clinic for repeat testing after his MIs. Qualifiers: Qualified Codes: I25.118 - Atherosclerotic heart disease of [place] coronary artery with other forms of angina pectoris Status: Chronic (8) Alcoholism Assessment & Plan: EtOH level 39 on admit. Monitor CIWA and use lorazepam as needed. Status: Chronic Chief Complaint/HPI Chief Complaint/HPI 47 yo male came to ER due to severe facial swelling associated with tooth problem. He states that he started having pain and swelling on Thursday evening about 2 days ago, which progressively got worse. He has had some teeth pulled in the area, but apparently was to have more done and was not happy with the dentist so had not been back. Discharge Summary-Simple/Stand Consultations Discharge Physical Examination Allergies: Coded Allergies: No Known Drug Allergies (Unverified , 05/28/12) Vitals & I&Os Vital Sign - Last 12Hours Date Time Temp Pulse Resp B/P (MAP) Pulse Ox O2 Delivery O2 Flow Rate FiO2 04/06/18 12:35 100 16 158/98 97 Room Air 04/06/18 08:26 100.9 General Appearance: Alert HEENT: Other (swollen left face, improved from day prior but still significant) Respiratory: Clear to Auscultation, Normal Air Movement Cardiovascular: Regular Rate, No Murmurs Neuro: Normal Speech Hospital Course See final discharge diagnosis. Labs Laboratory Tests Test 04/06/18 05:14 Range/Units White Blood Count 17.0 H 4.3-11.0 10^3/uL Red Blood Count 4.21 L 4.35-5.85 10^6/uL Hemoglobin 13.4 13.3-17.7 G/DL Hematocrit 40 40-54 % Mean Corpuscular Volume 96 80-99 FL Mean Corpuscular Hemoglobin 32 25-34 PG Mean Corpuscular Hemoglobin Concent 33 32-36 G/DL Red Cell Distribution Width 13.1 10.0-14.5 % Platelet Count 191 130-400 10^3/uL Mean Platelet Volume 10.4 7.4-10.4 FL Sodium Level 140 135-145 MMOL/L Potassium Level 3.7 3.6-5.0 MMOL/L Chloride Level 107 98-107 MMOL/L Carbon Dioxide Level 23 21-32 MMOL/L Anion Gap 10 5-14 MMOL/L Blood Urea Nitrogen 6 L 7-18 MG/DL Creatinine 0.92 0.60-1.30 MG/DL Estimat Glomerular Filtration Rate > 60 BUN/Creatinine Ratio 7 Glucose Level 192 H 70-105 MG/DL Calcium Level 9.3 8.5-10.1 MG/DL Corrected Calcium 9.7 8.5-10.1 MG/DL Total Bilirubin 1.2 H 0.1-1.0 MG/DL Aspartate Amino Transf (AST/SGOT) 16 5-34 U/L Alanine Aminotransferase (ALT/SGPT) 14 0-55 U/L Alkaline Phosphatase 102 40-136 U/L Total Protein 6.5 6.4-8.2 GM/DL Albumin 3.5 3.2-4.5 GM/DL Radiology Reviewed CT face: DRAFT "IMPRESSION: Left periapical and subperiosteal abscess associated with the left maxillary bicuspid tooth #11. Some chronic paranasal sinus membrane thickening without air-fluid level. No other acute finding. Discharge Instructions to patient/family Please see electronic discharge instructions given to patient. Discharge Medications Reviewed and agree with Discharge Medication list on patient's Discharge Instruction sheet Clinical Quality Measures DVT/VTE Risk/Contraindication: Risk Factor Score Per Nursin RFS Level Per Nursing on Admit: 3=High Copy Copies To 1: EUGENIA ESTRADA MD, BETHANY N MD Apr 07, 2018 21:18
== END 2018-04-06 12:35 | disposition home or self-care (01) | DRG 872 ==
LOC: EDUNIT# 00:14 → ER 00:17 → 4TH 01:55
PROVIDERS: ADMIT Family Medicine; ATTEND Family Medicine
DX: A41.9 Sepsis, unspecified organism (principal); L03.211 Cellulitis of face; K04.7 Periapical abscess without sinus; I10 Essential (primary) hypertension; E78.5 Hyperlipidemia, unspecified; F29 Unspecified psychosis not due to a substance or known physiological condition; I25.118 Atherosclerotic heart disease of native coronary artery with other forms of angina pectoris; F10.20 Alcohol dependence, uncomplicated; Y90.1 Blood alcohol level of 20-39 mg/100 ml; F17.210 Nicotine dependence, cigarettes, uncomplicated; I25.2 Old myocardial infarction; Z95.5 Presence of coronary angioplasty implant and graft; Z91.19 Patient's noncompliance with other medical treatment and regimen; E78.00 Pure hypercholesterolemia, unspecified; F14.90 Cocaine use, unspecified, uncomplicated; F11.90 Opioid use, unspecified, uncomplicated; F12.90 Cannabis use, unspecified, uncomplicated; F15.90 Other stimulant use, unspecified, uncomplicated
CPT/HCPCS: 36415; 70355; 70487; 80053; 80306; 80320; 83605; 85007; 85025; 85027; 87040; 96361; 96365; 96375

== ENCOUNTER → 2019-01-27 | Outpatient (CLI) | payer SELFPAY ==
[~2019-01-27] MED LIST changes: +AMOX-358 PO
--- NOTE | 2019-01-27 16:51 | Diagnostic Imaging Report ---
PROCEDURE: MRI lumbar spine. TECHNIQUE: Multiplanar, multisequence MRI of the lumbar spine was performed without contrast. INDICATION: Bilateral lower extremity weakness. Low back pain. COMPARISON: Lumbar spine radiographs 02/01/2009. FINDINGS: There are five lumbar-type vertebral bodies for the purposes of this report. Normal alignment. Vertebral body heights are preserved. Normal bone marrow signal. No abnormal signal in the conus which terminates at L1. Normal morphology of the cauda equina. The visualized abdominal and pelvic contents are unremarkable. At L4-L5, there is a large central disc extrusion with inferior migration measuring up to 1 cm. This results in severe spinal canal stenosis. Disc space height loss also contributes to advanced right and moderate left neural foraminal narrowing. At L5-S1, there is a small central disc protrusion which contributes to mild left lateral recess narrowing. No substantial spinal canal narrowing. Disc space height loss also contributes to advanced right and mild left neural foraminal narrowing. The intervertebral discs are otherwise well preserved. No other high-grade spinal canal, lateral recess, or neural foraminal narrowing. IMPRESSION: 1. Large central disc extrusion with inferior migration at L4-L5 results in severe spinal canal stenosis. 2. Spondylotic changes also result in high-grade bilateral neural foraminal narrowing at L4-L5 and on the right at L5-S1. 3. No acute osseous findings. Dictated by: Dictated on workstation # [id number]
== END ==
LOC: RAD 01-18 15:28
PROVIDERS: ATTEND Family Medicine
DX: M48.07 Spinal stenosis, lumbosacral region (principal); M51.26 Other intervertebral disc displacement, lumbar region; M47.816 Spondylosis without myelopathy or radiculopathy, lumbar region
CPT/HCPCS: 72148

== ENCOUNTER 2019-01-31 21:54 | Emergency (ER) | payer SELFPAY ==
--- NOTE | 2019-01-31 22:28 | NUR ---
went out to call pt back and pt was not prent. Registration said pt just walked out of building.
== END 2019-01-31 22:29 | disposition left against medical advice (07) ==
LOC: EDUNIT# 21:54 → ER 21:55
DX: M54.9 Dorsalgia, unspecified (principal)

== ENCOUNTER 2019-02-02 16:26 | Emergency (ER) | payer SELFPAY ==
[~2019-02-02] VITALS: Ht 170 cm; Wt 79.0 kg
[2019-02-02 18:58] LABS: CLARITY,URINE CLEAR; COLOR,URINE AMBER; GLUCOSE, URINE (UA) NEGATIVE (NEGATIVE); KETONES,URINE 1+ (NEGATIVE); LEUKOCYTE ESTERASE ,URINE 1+ (NEGATIVE); NITRITE,URINE NEGATIVE (NEGATIVE); PH,URINE 5 (5-9); PROTEIN,URINE 2+ (NEGATIVE); UROBILINOGEN,URINE 4 MG/DL (NORMAL)
--- NOTE | 2019-02-02 19:05 | ED Back Pain ---
General Chief Complaint: Back Problems Stated Complaint: BACK PAIN Nursing Triage Note: Pt amb to triage with c/o lt lower back pain with loss of bladder/bowel control. Pt reports in "early December," while @ work pt experienced strenuous labor and woke up the next day with extreme back pain. Reports to have seen PCP Dr. Estrada who ordered an MRI. Reports to have waited "a couple weeks" before having MRI performed (unaware of scan date). Pt reports after MRI, Dr. Estrada advised pt to be seen in ED d/t findings. Pt reports he did not seek medical attention until this day. Pt reports to have experienced loss of bowel & bladder control this am. Reports pins/needle with intermittent numbness to lt lower extremity as well as lt thumb. Nursing Sepsis Screen: No Definite Risk Source of Information: Patient, Spouse Exam Limitations: Other (PT AND BOTH GIVE SOME CONFLICTING/INCONSISTENT AND CONVOLUTED INFORMATION) History of Present Illness Date Seen by Provider: Feb 02, 2019 Time Seen by Provider: 18:15 Initial Comments PT ARRIVES VIA POV C/O LOW BACK PAIN, RADIATING DOWN LEFT POSTERIOR BUTTOCK, POSTERIOR LEFT THIGH, DOWN TO LEFT POSTERIOR CALF C/O SLIGHT NUMBNESS AND TINGLING TO LEFT ANTERIOR THIGH OFF AND ON ( ALSO C/O INTERMITTENT NUMBNESS AND TINGLING TO LEFT THUMB" DENIES ANY PROBLEMS WITH BOWEL OR BLADDER FUNCTION TO ME--STATES HE HAD A NORMAL BM TODAY AND HAS VOIDED NORMALLY TODAY --NO INCONTINENCE OR INABILITY TO VOID/DEFECATE NO SADDLE ANESTHESIA NO DIFFICULTY WALKING, OTHER THAN DUE TO PAIN STATES OVER A MONTH AGO, HE WAS WORKING IN [employer] ( SELF EMPLOYED ) AND WAS ON A PIECE OF DIGGING EQUIPMENT FOR 7 HOURS, WAS VERY HOT OUTSIDE, AND STATES "I THINK I HAD HEAT EXHAUSTION"--SON HAD TO HELP HIM OFF THE EQUIPMENT, AND THEN WHEN HE GOT HOME, HE "COLLAPSED" ON THE FLOOR HAS HAD PAIN IN LOWER BACK SINCE THAT TIME, BUT DID NOT NOT SEEK CARE AT THAT TIME PT STATES HE SAW DR. ESTRADA 3 WEEKS AGO FOR THIS PROBLEM, AND MRI WAS ORDERED/SCHEDULED AND THEN PT REFUSED DUE TO ANXIETY, THEN RESCHEDULED WITH PRE- MEDICATION AND WAS COMPLETED ON 01/27/19 PT STATES "SOMEONE CALLED ME AT 01:00 IN THE MORNING AND TOLD ME TO COME HERE TO GET MY MRI RESULTS AND THAT I NEEDED TO GO TO [place]" THEN STATES HE "TALKED TO DR. ESTRADA 3 DAYS AGO, AND SHE TOLD ME TO COME HERE TO ER TO GET MY MRI RESULTS AND TO GO TO [facility]" PT STATES HE HAS NOT BEEN PRESCRIBED ANY MEDICATIONS TOOK NAPROXEN AT 1500 TODAY, OTHERWISE HAS NOT TAKEN ANYTHING FOR PAIN PT STATES IN 1995, "BROKE MY LOW BACK" --STATES HE WAS SEEN BY DR. JOSEPH AT THAT TIME, AND NO SURGERY WAS DONE. DOES HAVE SOME CHRONIC LOW BACK PAIN. PT HAS A VERY LONG HISTORY OF NON-COMPLIANCE IN ALL ASPECTS OF CARE Other Comments PCP: DR. ESTRADA Allergies and Home Medications Allergies Coded Allergies: No Known Drug Allergies (Unverified , 05/28/12) Home Medications Amoxicillin/Potassium Clav 1 Each Tablet, 1 EACH PO BID Prescribed by: EUGENIA ESTRADA on 04/06/18 1152 Aspirin 81 Mg Tablet.dr, 81 MG PO DAILY, (Reported) Atorvastatin Calcium 80 Mg Tablet, 80 MG PO DAILY, (Reported) Clopidogrel Bisulfate 75 Mg Tablet, 75 MG PO DAILY, (Reported) Isosorbide Mononitrate 60 Mg Tab, 60 MG PO DAILY, (Reported) Lisinopril 20 Mg Tablet, 20 MG PO DAILY, (Reported) Methylprednisolone 4 Mg Tab.ds.pk, 4 MG PO UD Prescribed by: SANDY GLORIA on 02/02/191911 Metoprolol Tartrate 50 Mg Tablet, 50 MG PO BID, (Reported) Tizanidine HCl 4 Mg Capsule, 4 MG PO TID Prescribed by: SANDY GLORIA on 02/02/191911 Patient Home Medication List Home Medication List Reviewed: Yes Review of Systems Constitutional: no symptoms reported Respiratory: no symptoms reported Cardiovascular: no symptoms reported Gastrointestinal: no symptoms reported; No abdominal pain, No constipation, No diarrhea, No nausea, No vomiting Genitourinary: no symptoms reported; No decreased output, No dysuria, No frequency, No hesitancy, No incontinence, No pain Musculoskeletal: see HPI, back pain Skin: no symptoms reported; No rash Psychiatric/Neurological: See HPI Past Fdbfzws-Bdvueu-Qhnkog Hx Patient Social History Alcohol Use: Regular Use (USED TO DRINK AN 18 PACK OR MORE, PLUS A PINT OF HARD LIQUOR EVERY DAY FOR OVER 30 YEARS--OFTEN MUCH MORE THAN THAT, NOW DRINKS A 6-8 PACK A DAY--PER PT 09/11/19) Number of Drinks Today: AA Alcohol Beverage of Choice: Beer Recreational Drug Use: Yes (HX OF METH, COCAINE, HEROIN USE, THC USE, RX PILLS--MOSTLY PAIN PILLS. DENIES IV USE) Drug of Choice: THC, METH, COCAINE, HEROIN, RX PILLS--MOSTLY PAIN PILLS. DENIES IV USE Smoking Status: Current Everyday Smoker (UP TO 4 PPD) Type Used: Cigarettes 2nd Hand Smoke Exposure: Yes Recent Foreign Travel: No Contact w/Someone Who Travel: No Recent Infectious Disease Expo: No Recent Hopitalizations: No Immunizations Up To Date Tetanus Booster (TDap): Unknown PED Vaccines UTD: No Seasonal Allergies Seasonal Allergies: No Past Medical History Surgeries: Yes (CARDIAC CATHS-STENTS X 3 + ANGIOPLASTIES--CATH IN 2012 WITH STENT X 1; CATH 07/2017--STENTS X 2; CATH 08/2017--PATENT STENTS/NO INTERVENTIO N; JAW FRACTURE/SURGERY X 2; ) Cardiac, Coronary Stent Respiratory: No Currently Using CPAP: No Currently Using BIPAP: No Cardiac: Yes (OH X 2 WITH STENTS X 3--FIRST ONE 2012--1 STENT; HAD OH 07/2017 WITH V-FIB/CODED/CARDIAC ARREST--STENTS X 2 + ANGIOPLASTIES; CARDIAC CATH 08/2017--PATENT STENTS) Coronary Artery Disease, Heart Attack, Heart Murmur, High Cholesterol, Hypertension, Irregular Heartbeat Neurological: No Reproductive Disorders: No Sexually Transmitted Disease: No HIV/AIDS: No Genitourinary: Yes Kidney Stones Gastrointestinal: Yes Gastrointestinal Bleed Musculoskeletal: Yes Arthritis, Back Injury, Chronic Back Pain Endocrine: No HEENT: Yes (EXTENSIVE DENTAL DECAY, CHRONIC DENTAL PROBLEMS / ABSCESSES) Loss of Vision: Denies Hearing Impairment: Denies Cancer: No Psychosocial: Yes (POLYSUBSTANCE ABUSE; SUICICAL THOUGHTS WHEN UNDER THE INFLUENCE) Anxiety, Depression Integumentary: No Blood Disorders: No Adverse Reaction/Blood Tranf: No Family Medical History Unknown Physical Exam Vital Signs Vital Signs - First Documented 02/02/19 17:30 Temp 36.7 Pulse 76 Resp 17 B/P (MAP) 150/107 (121) Pulse Ox 98 O2 Delivery Room Air Capillary Refill : Less Than 3 Seconds Height, Weight, BMI Height: 5'7.00" Weight: 173lbs. 0.0oz. [id number]; 27.00 BMI Method:Stated General Appearance: No Apparent Distress, WD/WN, Other (SITTING, PLAYING/TEXTING ON PHONE; WALKS UPRIGHT AND MOVES WITHOUT DIFFICULTY. REEKS OF CIGARETTES. ) Neck: Full Range of Motion, Normal Inspection, Non Tender, Supple Cardiovascular: Regular Rate, Rhythm, No Edema, No JVD, No Murmur, Normal Peripheral Pulses Respiratory: Normal Breath Sounds, No Accessory Muscle Use, No Respiratory Distress Peripheral Pulses: 2+ Dorsalis Pedis (R), 2+ Left Dors-Pedis (L) Gastrointestinal: Non Tender, Soft Back: No CVA Tenderness, Other (LUMBAR TENDERNESS; PATELLAR REFLEXES +2/4 BILATERALLY; + STRAIGHT LEG RAISING + AT 30 DEGREES BILATERALLY, WITH MORE PAIN ON LEFT; ) Extremity: Normal Capillary Refill, Normal Inspection, Normal Range of Motion, Non Tender, No Calf Tenderness, No Pedal Edema Neurologic/Psychiatric: Alert, Oriented x3, No Motor/Sensory Deficits, Normal Mood/Affect, embedded software engineer II-XII Norm as Tested Skin: Normal Color, Warm/Dry; No Rash Progress/Results/Core Measures Results/Orders Lab Results Laboratory Tests Test 02/02/19 18:47 Range/Units Urine Color LYNN H Urine Clarity CLEAR Urine pH 5 5-9 Urine Specific [place] 1.025 H 1.016-1.022 Urine Protein 2+ H NEGATIVE Urine Glucose (UA) NEGATIVE NEGATIVE Urine Ketones 1+ H NEGATIVE Urine Nitrite NEGATIVE NEGATIVE Urine Bilirubin 2+ icto=neg NEGATIVE Urine Urobilinogen 4 H NORMAL MG/DL Urine Leukocyte Esterase 1+ H NEGATIVE Urine RBC (Auto) NEGATIVE NEGATIVE Urine RBC NONE /HPF Urine WBC 5-10 H /HPF Urine Crystals NONE /LPF Urine Bacteria TRACE /HPF Urine Casts PRESENT /LPF Urine Hyaline Casts 5-10 H /LPF Urine Mucus LARGE H /LPF Urine Culture Indicated YES Urine Opiates Screen NEGATIVE NEGATIVE Urine Oxycodone Screen NEGATIVE NEGATIVE Urine Methadone Screen NEGATIVE NEGATIVE Urine Propoxyphene Screen NEGATIVE NEGATIVE Urine Barbiturates Screen NEGATIVE NEGATIVE Ur Tricyclic Antidepressants Screen NEGATIVE NEGATIVE Urine Phencyclidine Screen NEGATIVE NEGATIVE Urine Amphetamines Screen NEGATIVE NEGATIVE Urine Methamphetamines Screen NEGATIVE NEGATIVE Urine Benzodiazepines Screen POSITIVE H NEGATIVE Urine Cocaine Screen NEGATIVE NEGATIVE Urine Cannabinoids Screen POSITIVE H NEGATIVE My Orders Orders - SANDY GLORIA DO Drug Screen Stat (Urine) (02/02/19 18:32) Ua Culture If Indicated (02/02/19 18:32) Urine Culture (02/02/19 18:47) Vital Signs/I&O 02/02/19 02/02/19 17:30 19:36 Temp 36.7 Pulse 76 87 Resp 17 20 B/P (MAP) 150/107 (121) 144/108 Pulse Ox 98 95 O2 Delivery Room Air Blood Pressure Mean: 121 Progress Progress Note : Progress Note REVIEWED MRI RESULTS WITH PT Departure Communication (Admissions) 1844--CALLED [facility]--PT PREFERENCE, PAGING NEUROSURGEON 1849--SPOKE WITH DR. BOLDEN, HE STATES HE CAN SEE PT IN FOLLOW UP, IT IS NOT AN ACUTE PROBLEM AND DOES NOT REQUIRE IMMEDIATE/EMERGENT TRANSFER AND SURGERY, BUT HE IS TECHNICALLY NOT "COVERING CALL" FOR THIS HOSPITAL, IT WOULD BE PREFERABLE TO HAVE FORMAL REFERRAL FROM HER PCP, WHICH IS DR. ESTRADA AT [facility], AND HE HAS HAD MANY REFERRALS FROM THEM BEFORE, SO PROPER COMMUNICATION AND CORRESPONDENCE CAN BE MAINTAINED 1956--SPOKE WITH DR. CARDOZA AND DISCUSSED ALL OF THE ABOVE. SHE IS VERY FAMILIAR WITH THE PT, AND SHE WILL MAKE A FORMAL REFERRAL TO DR. BOLDEN. Impression Primary Impression: Lumbar disc disorder Additional Impression: Lumbar radiculopathy Disposition: HOME, SELF-CARE Condition: Stable Departure-Patient Inst. Referrals: EUGENIA ESTRADA MD (PCP/Family) Primary Care Physician Patient Instructions: Low Back Pain (DC), Radiculopathy (DC) Add. Discharge Instructions: ALTERNATE ICE AND HEAT TO SORE AREAS AT 20 MINUTE INTERVALS NO LIFTING OVER 5 LBS, NO TWISTING OR BENDING AT WAIST CALL [facility] IN THE MORNING, FOR FORMAL REFERRAL TO [facility]. DR. BOLDEN IS SURGEON CUPOLA MELTER TODAY. All discharge instructions reviewed with patient and/or family. Voiced understanding. Scripts Tizanidine HCl (Tizanidine HCl) 4 Mg Capsule 4 MG PO TID, #15 CAP Prov: SANDY GLORIA DO 02/02/19 Methylprednisolone (Medrol) 4 Mg Tab.ds.pk 4 MG PO UD, #1 PKG Prov: SANDY GLORIA DO 02/02/19 JUANISANDY K DO Feb 02, 2019 19:05
[2019-02-02 19:12] LABS: BACTERIA,URINE TRACE /HPF
[2019-02-02] MEDS ORDERED: METH4TAB PO (19:12)
[2019-02-02] MEDS ORDERED: TIZA4CAP8 PO (19:12)
[2019-02-02 19:21] LABS: AMPHETAMINE SCREEN, URINE NEGATIVE (NEGATIVE); BENZODIAZEPINES SCREEN URINE POSITIVE (NEGATIVE); CANNABINOID SCREEN, URINE POSITIVE (NEGATIVE); COCAINE SCREEN URINE NEGATIVE (NEGATIVE); METHAMPHETAMINE SCREEN URINE S NEGATIVE (NEGATIVE)
[2019-02-02 19:22] LABS: BARBITURATE SCREEN URINE NEGATIVE (NEGATIVE); METHADONE STAT NEGATIVE (NEGATIVE); OPIATE SCREEN URINE NEGATIVE (NEGATIVE); OXYCODONE STAT NEGATIVE (NEGATIVE); PROPOXYPHENE STAT NEGATIVE (NEGATIVE); TRICYCLIC ANTIDEPRESSANTS SCRE NEGATIVE (NEGATIVE)
[2019-02-02 19:36] VITALS: BP 144/108
== END 2019-02-02 19:36 | disposition home or self-care (01) ==
LOC: EDUNIT# 16:26 → ER 16:27
DX: M51.16 Intervertebral disc disorders with radiculopathy, lumbar region (principal); I25.2 Old myocardial infarction; I25.10 Atherosclerotic heart disease of native coronary artery without angina pectoris; E78.00 Pure hypercholesterolemia, unspecified; I10 Essential (primary) hypertension; F41.9 Anxiety disorder, unspecified; F32.9 Major depressive disorder, single episode, unspecified; F17.210 Nicotine dependence, cigarettes, uncomplicated; Z79.82 Long term (current) use of aspirin; Z79.02 Long term (current) use of antithrombotics/antiplatelets; Z95.5 Presence of coronary angioplasty implant and graft
CPT/HCPCS: 80306; 81000; 87088; 99282

== ENCOUNTER → 2020-11-01 | Outpatient (CLI) | payer SELFPAY ==
[~2020-11-01] MED LIST changes: +ASPI-1238 PO; -ASPI-983 PO; -ISM60TCR PO; +ISOS60TA63 PO; -LISI-552 PO; +LISI20TA26 PO; +METH4TAB PO; +TIZA4CAP8 PO
[2020-11-01 13:03] LABS: BASOPHILS # (AUTO) 0.1 10^3/uL (0.0-0.1); BASOPHILS % (AUTO) 1 % (0-10); EOSINOPHILS # (AUTO) 0.3 10^3/uL (0.0-0.3); EOSINOPHILS % (AUTO) 4 % (0-10); HEMATOCRIT 51 % (40-54); HEMOGLOBIN 17.3 g/dL (13.3-17.7); LYMPHOCYTES # (AUTO) 2.2 10^3/uL (1.0-4.0); LYMPHOCYTES % (AUTO) 28 % (12-44); MEAN CORPUSCULAR HEMOGLOBIN 31 pg (25-34); MEAN CORPUSCULAR HGB CONC 34 g/dL (32-36); MEAN CORPUSCULAR VOLUME 90 fL (80-99); MEAN PLATELET VOLUME 9.7 fL (9.0-12.2); MONOCYTES # (AUTO) 0.5 10^3/uL (0.0-1.0); MONOCYTES % (AUTO) 7 % (0-12); NEUTROPHILS # (AUTO) 4.6 10^3/uL (1.8-7.8); NEUTROPHILS % (AUTO) 60 % (42-75); PLATELET COUNT 306 10^3/uL (130-400); WHITE BLOOD COUNT 7.6 10^3/uL (4.3-11.0)
[2020-11-01 13:23] LABS: ALANINE AMINOTRANSFERASE 24 U/L (0-55); ALBUMIN 4.1 GM/DL (3.2-4.5); ALKALINE PHOSPHATASE 139 U/L (40-136); BILIRUBIN,TOTAL 0.4 MG/DL (0.1-1.0); BUN/CREATININE RATIO 6; CALCIUM 9.8 MG/DL (8.5-10.1); CARBON DIOXIDE 21 MMOL/L (21-32); CHLORIDE 104 MMOL/L (98-107); CREATININE SERUM 1.02 MG/DL (0.60-1.30); GFR ESTIMATED > 60; GLUCOSE 111 MG/DL (70-105); POTASSIUM 4.2 MMOL/L (3.6-5.0); SODIUM 137 MMOL/L (135-145); TOTAL PROTEIN 8.2 GM/DL (6.4-8.2)
== END ==
LOC: LAB 12:29
PROVIDERS: ATTEND Family Medicine
DX: I25.110 Atherosclerotic heart disease of native coronary artery with unstable angina pectoris (principal)
CPT/HCPCS: 36415; 80053; 83880; 84484; 85025

== ENCOUNTER 2023-03-08 19:35 | Emergency (ER) | payer MEDICAID ==
[~2023-03-08] VITALS: Ht 172.7 cm; Wt 80.0 kg
[~2023-03-08 19:35] MED LIST changes: +CLOP-31 PO; -CLOP75TA69 PO
[2023-03-08] MEDS ORDERED: ETOMIDATE INJ SOLN 20 MG/10 ML VIAL IV ONE (19:38)
[2023-03-08] MEDS ORDERED: ROCURONIUM 50 MG/5 ML VIAL IV ONE (19:38)
[2023-03-08] MEDS ORDERED: ONDANSETRON INJECTION 4 MG/2 ML (SDV) ONE (19:43)
[2023-03-08] MEDS ORDERED: morphine INJ 4 MG/ML 1 ML (VIAL/SYRINGE) ONE (19:44)
[2023-03-08] MEDS ORDERED: HEParin DRIP 25000 UNIT/500ML 500 ML IV ONE (19:48)
[2023-03-08] MEDS ORDERED: HEParin 1000 UNIT/ML (10ML VIAL) FOR BOLUS ONE (19:48)
[2023-03-08] MEDS ORDERED: NS IV 1000 ML 1,000 ML ONE (19:48)
[2023-03-08 20:07] LABS: BASOPHILS % (AUTO) 1 % (0-10); EOSINOPHILS # (AUTO) 0.4 10^3/uL (0.0-0.3); EOSINOPHILS % (AUTO) 4 % (0-10); HEMATOCRIT 43 % (40-54); HEMOGLOBIN 14.7 g/dL (13.3-17.7); LYMPHOCYTES % (AUTO) 23 % (12-44); MEAN CORPUSCULAR HEMOGLOBIN 32 pg (25-34); MEAN CORPUSCULAR HGB CONC 35 g/dL (32-36); MEAN CORPUSCULAR VOLUME 91 fL (80-99); MONOCYTES # (AUTO) 0.9 10^3/uL (0.0-1.0); MONOCYTES % (AUTO) 10 % (0-12); NEUTROPHILS # (AUTO) 5.5 10^3/uL (1.8-7.8); NEUTROPHILS % (AUTO) 62 % (42-75); PLATELET COUNT 311 10^3/uL (130-400); WHITE BLOOD COUNT 8.8 10^3/uL (4.3-11.0)
--- NOTE | 2023-03-08 20:09 | ED Chest Pain ---
General Chief Complaint: Chest Pain Stated Complaint: POSS [place] Source: patient, EMS History of Present Illness Date Seen by Provider: Mar 08, 2023 Time Seen by Provider: 19:35 Initial Comments Patient is a 52-year-old male who [place] the emergency room [place] from [place] chief complaint substernal chest pain, "burning" all day. Patient states that he had a brand-new bottle of nitro and basically took the entire bottle off-and-on all day long today. He endorses shortness of breath, nausea. Continues to smoke. Prior cardiac history, multiple stents. Last stent placed approximately 5 years ago. Patient states that he is not consistent with taking his heart medications. He does occasionally use marijuana. No alcohol. No other illicit drugs. Patient received aspirin, morphine, Zofran, IV fluids prior to arrival per EMS. Helicopter transport arranged prior to patient arrival due to STEMI diversion at our facility. Patient awake alert, oriented on arrival. States pain was improving. Shortly after arrival once the patient was hooked up to monitors and EKG he started experiencing a recurrence of pain. Progressively worsened. Case was discussed with Dr. Frausto at [facility] after EKG identified inferior lateral STEMI in progress. Dr. Frausto defers TNKase at this time. Accepts patient for transfer. After getting off the phone with Dr. Frausto I was notified by nursing staff that the patient was looking worse, increasing pain. He started vomiting. Patient was electively intubated to protect his airway during transport. Family notified, updated on progress and plan. at bedside prior to transfer Timing/Duration: 12 hours Severity/Quality: burning Location: central Radiation: arms, shoulders (left) Prior CP/Workup: cardiac cath, heart attack ASA po FINANCIAL LEGAL ASSISTANT: Yes NTG SL FINANCIAL LEGAL ASSISTANT: Yes Associated Symptoms: heartburn, nausea/vomiting, shortness of breath, weakness Allergies and Home Medications Allergies Coded Allergies: No Known Drug Allergies (Unverified , 05/28/12) Patient Home Medication List Home Medication List Reviewed: Yes Amoxicillin/Potassium Clav (Augmentin 875-125 Tablet) 1 Each Tablet, 1 EACH PO BID Prescribed by: EUGENIA ESTRADA on 04/06/18 1152 Aspirin (Aspirin EC) 81 Mg Tablet., 81 MG PO DAILY, (Reported) Entered as Reported by: ANITA BARTON on 08/31/17 1204 Atorvastatin Calcium (Atorvastatin Calcium) 80 Mg Tablet, 80 MG PO DAILY, (Repor delonte) Entered as Reported by: ANITA BARTON on 08/31/17 1204 Clopidogrel Bisulfate (Plavix) 75 Mg Tablet, 75 MG PO DAILY, (Reported) Entered as Reported by: ANITA BARTON on 08/31/17 1204 Isosorbide Mononitrate (Isosorbide Mononitrate ER) 60 Mg Tab, 60 MG PO DAILY, (Reported) Entered as Reported by: ANIL SAVAGE on 04/05/18 1119 Lisinopril (Lisinopril) 20 Mg Tablet, 20 MG PO DAILY, (Reported) Entered as Reported by: ANITA BARTON on 08/31/17 1204 Methylprednisolone (Medrol) 4 Mg Tab.ds.pk, 4 MG PO UD Prescribed by: SANDY GLORIA on 02/02/191911 Metoprolol Tartrate (Metoprolol Tartrate) 50 Mg Tablet, 50 MG PO BID, (Reported) Entered as Reported by: ANITA BARTON on 08/31/17 1204 Tizanidine HCl (Tizanidine HCl) 4 Mg Capsule, 4 MG PO TID Prescribed by: SANDY GLORIA on 02/02/191911 Review of Systems Review of Systems Constitutional: see HPI Respiratory: Shortness of Air Cardiovascular: Chest Pain Gastrointestinal: Nausea, Vomiting Past Lgxcwqs-Flkoty-Obmgsk Hx Patient Social History Tobacco Use?: Yes Tobacco type used: Cigarettes Smoking Status: Current Everyday Smoker Use of E-Cig and/or Vaping dev: No Substance use?: No Alcohol Use?: No Pt feels they are or have been: No Immunizations Up To Date Tetanus Booster (TDap): Unknown PED Vaccines UTD: No Influenza Vaccine Up-to-Date: No; Not Current First/Initial COVID19 Vaccinat: N/A Seasonal Allergies Seasonal Allergies: No Past Medical History Surgery/Hospitalization HX: EXTENSIVE CARDIAC HISTORY PER PT/STENTS/SMOKER Surgeries: Yes Cardiac, Coronary Stent Respiratory: No Currently Using CPAP: No Currently Using BIPAP: No Cardiac: Yes Coronary Artery Disease, Heart Attack, Heart Murmur, High Cholesterol, Hypertension, Irregular Heartbeat Neurological: No Reproductive Disorders: No Sexually Transmitted Disease: No HIV/AIDS: No Genitourinary: Yes Kidney Stones Gastrointestinal: Yes Gastrointestinal Bleed Musculoskeletal: Yes Arthritis, Back Injury, Chronic Back Pain Endocrine: No HEENT: Yes (EXTENSIVE DENTAL DECAY, CHRONIC DENTAL PROBLEMS / ABSCESSES) Loss of Vision: Denies Hearing Impairment: Denies Cancer: No Psychosocial: Yes (POLYSUBSTANCE ABUSE; SUICICAL THOUGHTS WHEN UNDER THE INFLUENCE) Anxiety, Depression Integumentary: No Blood Disorders: No Adverse Reaction/Blood Tranf: No Family Medical History Unknown Physical Exam Vital Signs Vital Signs - First Documented 03/08/23 03/08/23 19:40 20:20 Temp 37.0 Pulse 71 Resp 16 B/P (MAP) 144/110 (121) Pulse Ox 99 O2 Delivery Nasal Cannula O2 Flow Rate 2.00 FiO2 60 Capillary Refill : Height, Weight, BMI Height: 5'7.00" Weight: 173lbs. 0.0oz. 78.168252ka; 27.00 BMI Method:Stated General Appearance: Chronically ill, Moderate Distress, Thin HEENT: PERRL/EOMI Neck: Normal Inspection Respiratory: Lungs Clear, Normal Breath Sounds, No Accessory Muscle Use Cardiovascular: Regular Rate, Rhythm, Normal Peripheral Pulses (2+) Gastrointestinal: Soft Extremity: Normal Capillary Refill, Normal Range of Motion, No Pedal Edema Neurologic/Psychiatric: Alert, Oriented x3 Skin: Diaphoresis, Pallor Procedures/Interventions Date of ETT Placement: Mar 08, 2023 Time of ETT Placement: 20:00 Intubation Method: orotracheal Tube Size: 7.5 Medications: Etomidate, Rocuronium Positive End Tide CO2: Yes Breath Sounds after Intubation: bilateral-equal Intubation Complications: no complications Post Intubation Xray: Yes inplace Critical Care Note Critical Care Start Time: 19:35 Stop Time: 20:10 Total Time (minutes) 30min critical care time in the eval and management of this patient with STEMI. TIme includes initital eval, medication administration/heparin/review of medical records; discussion with kindergarten paraprofessional to arrange transfer; serial re-evaluation; time does not include that sepnt in procedure - intubation Progress/Results/Core Measures Results/Orders Lab Results Laboratory Tests Test 03/08/23 19:40 03/08/23 20:00 Range/Units White Blood Count 8.8 4.3-11.0 10^3/uL Red Blood Count 4.66 4.30-5.52 10^6/uL Hemoglobin 14.7 13.3-17.7 g/dL Hematocrit 43 40-54 % Mean Corpuscular Volume 91 80-99 fL Mean Corpuscular Hemoglobin 32 25-34 pg Mean Corpuscular Hemoglobin Concent 35 32-36 g/dL Red Cell Distribution Width 12.9 10.0-14.5 % Platelet Count 311 130-400 10^3/uL Mean Platelet Volume 10.0 9.0-12.2 fL Immature Granulocyte % (Auto) 0 % Neutrophils (%) (Auto) 62 42-75 % Lymphocytes (%) (Auto) 23 12-44 % Monocytes (%) (Auto) 10 0-12 % Eosinophils (%) (Auto) 4 0-10 % Basophils (%) (Auto) 1 0-10 % Neutrophils # (Auto) 5.5 1.8-7.8 10^3/uL Lymphocytes # (Auto) 2.0 1.0-4.0 10^3/uL Monocytes # (Auto) 0.9 0.0-1.0 10^3/uL Eosinophils # (Auto) 0.4 H 0.0-0.3 10^3/uL Basophils # (Auto) 0.0 0.0-0.1 10^3/uL Immature Granulocyte # (Auto) 0.0 0.0-0.1 10^3/uL Prothrombin Time 13.4 12.2-14.7 SEC INR Comment 1.0 0.8-1.4 Activated Partial Thromboplast Time 33 24-35 SEC Sodium Level 135 135-145 MMOL/L Potassium Level 3.3 L 3.6-5.0 MMOL/L Chloride Level 103 98-107 MMOL/L Carbon Dioxide Level 19 L 21-32 MMOL/L Anion Gap 13 5-14 MMOL/L Blood Urea Nitrogen 9 7-18 MG/DL Creatinine 0.96 0.60-1.30 MG/DL Estimat Glomerular Filtration Rate 96 BUN/Creatinine Ratio 9 Glucose Level 133 H 70-105 MG/DL Calcium Level 8.8 8.5-10.1 MG/DL Corrected Calcium 9.0 8.5-10.1 MG/DL Magnesium Level 1.8 1.6-2.4 MG/DL Total Bilirubin 0.5 0.1-1.0 MG/DL Aspartate Amino Transf (AST/SGOT) 18 5-34 U/L Alanine Aminotransferase (ALT/SGPT) 24 0-55 U/L Alkaline Phosphatase 108 40-136 U/L Troponin I < 0.028 <0.028 NG/ML Total Protein 7.0 6.4-8.2 GM/DL Albumin 3.8 3.2-4.5 GM/DL Glucometer 218 H 70-110 MG/DL My Orders Orders - CONCHIS CROCKER MD Ondansetron Injection (Ondansetron Inj (03/08/23 19:43) Morphine Injection (Morphine Injection (03/08/23 19:44) Heparin (Bolus Per Protocol) (Heparin (B (03/08/23 19:48) Heparin Drip 19530 Unit/500ml (Heparin (03/08/23 19:48) Ns Iv 1000 Ml (Ns Iv 1000 Ml) (03/08/23 19:48) Cbc And Automated Diff (03/08/23 19:58) Magnesium (03/08/23 19:58) Chest 1 View, Ap/Pa Only (03/08/23 19:58) Ekg Tracing (03/08/23 19:58) Comprehensive Metabolic Panel (03/08/23 19:58) Protime With Inr (03/08/23 19:58) Partial Thromboplastin Time (03/08/23 19:58) O2 (03/08/23 19:58) Monitor-Rhythm Ecg Trace Only (03/08/23 19:58) Ed Iv/Invasive Line Start (03/08/23 19:58) Troponin I [place] (03/08/23 19:58) Propofol Drip (Icu) (Propofol Drip (Icu) (03/08/23 19:57) Medications Given in ED Current Medications Medications Dose Ordered Sig/David Route Start Time Stop Time Status Last Admin Dose Admin Heparin Sodium (Porcine) 10,000 unit STK-MED ONCE .ROUTE 03/08/23 19:48 03/08/23 19:50 DC 03/08/23 19:49 5,000 UNIT Heparin Sodium/ Dextrose 500 ml @ ud STK-MED ONCE IV 03/08/23 19:48 03/08/23 19:50 DC 03/08/23 19:52 20 MLS/HR Morphine Sulfate 4 mg STK-MED ONCE .ROUTE 03/08/23 19:44 03/08/23 19:47 DC 03/08/23 19:47 4 MG Ondansetron HCl 4 mg STK-MED ONCE .ROUTE 03/08/23 19:43 03/08/23 19:47 DC 03/08/23 19:45 4 MG Propofol 100 ml @ ud STK-MED ONCE IV 03/08/23 19:57 03/08/23 19:59 DC 03/08/23 20:01 14.4 MLS/HR Sodium Chloride 1,000 ml @ ud STK-MED ONCE .ROUTE 03/08/23 19:48 03/08/23 19:50 DC 03/08/23 19:49 250 MLS/HR Vital Signs/I&O 03/08/23 03/08/23 03/08/23 03/08/23 19:40 19:40 20:20 20:37 Temp 37.0 37.0 Pulse 71 103 78 Resp 16 14 B/P (MAP) 144/110 (121) 157/113 Pulse Ox 99 99 100 100 O2 Delivery Nasal Cannula Nasal Cannula Mechanical Ventilator O2 Flow Rate 2.00 2.00 100.00 FiO2 60 Progress Progress Note : Time: 20:00 Progress Note Patient seen and evaluated by me. Evaluation today includes physical exam, "chest pain protocol". CBC, Chem-12, coags, magnesium, troponin, EKG, single view chest x-ray. Pertinent physical exam findings ill-appearing 52-year-old male with chest "burning", not tachycardic, heart is regular, diminished lung sounds throughout. Benign abdominal exam. 2+ distal pulses radial. Poor color, pale/tyler, diaphoretic. Answering questions appropriately. No gross neurodeficits. Differential diagnosis includes STEMI, dissection Patient treated in the emergency department with IV fluids, Zofran for nausea, heparin bolus. Patient deteriorated shortly after arrival with return of chest pain, vomiting. Case was discussed with Dr. Frausto at [facility] for urgent transfer for STEMI intervention. Helicopter crew notified prior to arrival as we did not have cardiology available for intervention at our facility. Patient was electively intubated for airway protection prior to transfer in the helicopter. RSI with rocuronium and etomidate for sedation. 7.5 ET tube placed using glide scope. Chest x-ray confirmed placement. Sedated with propofol. Care transferred to flight crew for transfer. Initial ECG Impression Date: Mar 08, 2023 Initial ECG Impression Time: 19:41 Initial ECG Rate: 88 Initial ECG Impression: Acute [place] Comment acute ST elevation inferior leads with depression leads V1-V4; Elevation in V5 and V6 Diagnostic Imaging Diagonstic Imaging: Xray Plain Films/CT/US/NM/MRI: chest Comments clear lungs - Intubated - tube 2cm above vinh Departure Impression Primary Impression: STEMI (ST elevation myocardial infarction) Qualified Codes: I21.3 - ST elevation (STEMI) myocardial infarction of unspecified site Disposition: XFER SHT-TRM HOSP Condition: Critical Transfer Transfer Reason: Exceeds level of care Time Spoke to Accepting Phy: 19:43 Transfer Progress Notes discussed with Dr Frausto - acceptmarlon Transfer Time: 20:11 Transfer Facility: [facility] Method of Transfer: Air Departure-Patient Inst. Referrals: EUGENIA ESTRADA MD (PCP/Family) Primary Care Physician Copy Copies To 1: EUGENIA ESTRADA MD, KATHRYN M MD Mar 08, 2023 20:09
[2023-03-08 20:12] LABS: PROTHROMBIN TIME PATIENT 13.4 SEC (12.2-14.7)
--- NOTE | 2023-03-08 20:16 | Diagnostic Imaging Report ---
Indication: Chest pain, intubation Frontal chest obtained at 0810 p.m. COMPARISON: 12/10/2017 There is cardiomegaly with central vascular congestion and mild interstitial edema. There is no pneumothorax or pleural fluid. ET tube tip overlies mid trachea. NG tube tip is below the film. IMPRESSION: Cardiomegaly with central vascular congestion and interstitial edema compatible with CHF. ET tube and NG tube as above. Dictated by: Dictated on workstation # [id number]
[2023-03-08 20:31] LABS: ALANINE AMINOTRANSFERASE 24 U/L (0-55); ALBUMIN 3.8 GM/DL (3.2-4.5); ALKALINE PHOSPHATASE 108 U/L (40-136); BILIRUBIN,TOTAL 0.5 MG/DL (0.1-1.0); BUN/CREATININE RATIO 9; CALCIUM 8.8 MG/DL (8.5-10.1); CARBON DIOXIDE 19 MMOL/L (21-32); CHLORIDE 103 MMOL/L (98-107); CREATININE SERUM 0.96 MG/DL (0.60-1.30); GFR ESTIMATED 96; GLUCOSE 133 MG/DL (70-105); MAGNESIUM 1.8 MG/DL (1.6-2.4); POTASSIUM 3.3 MMOL/L (3.6-5.0); SODIUM 135 MMOL/L (135-145)
[2023-03-08 20:37] VITALS: BP 157/113
== END 2023-03-08 20:37 | disposition short-term general hospital (02) ==
LOC: EDUNIT# 19:35 → ER 19:37
DX: I21.3 ST elevation (STEMI) myocardial infarction of unspecified site (principal); R11.2 Nausea with vomiting, unspecified; F17.210 Nicotine dependence, cigarettes, uncomplicated; Z95.5 Presence of coronary angioplasty implant and graft
CPT/HCPCS: 31500; 36415; 51702; 71045; 80053; 82947; 83735; 84484; 85025; 85610; 85730; 93041; 94002; 99291